=== PATIENT | female | born 1930 | race Caucasian/White ===

== ENCOUNTER 2016-10-13 14:10 | Emergency (ER) | payer OTHER ==
[~2016-10-13] VITALS: Ht 160 cm; Wt 54.5 kg
[2016-10-13 14:39] VITALS: Ht 160 cm; Wt 54.5 kg
--- NOTE | 2016-10-13 14:57 | ERD ---
ER Documentation Chief Complaint Date/Time DATE: 10/13/16 TIME: 14:55 Chief Complaint HPI Patient is an 86-year-old female who was noted by her daughter to have white spots in the back of her throat last night. She spoke to her doctor and was advised to give her penicillin. She states that the senior living give the patient nystatin which she vomited, but would not give her penicillin. Patient was later found to be febrile and having chills. She has had mild cough. She had a right knee replacement 1 week ago. She has had a Robertson catheter in for 2 days. She has not had diarrhea, shortness of breath. History is limited from the patient due to severe dementia. ROS All systems reviewed and are negative except as per history of present illness. Medications Home Meds Active Scripts Polyethylene Glycol* (Miralax*) 17 Gm Powd.pack, 17 GM PO DAILY, #3 Prov:CATHIE CAICEDO MD 10/13/16 Azithromycin* (Zithromax*) 250 Mg Tablet, 250 MG PO .AlciraPACK DIRECTED, #6 TAB TAKE 500 MG (2 TABS) THE FIRST DAY THEN 250 MG (1 TAB) DAYS 2-5 Prov:CATHIE CAICEDO MD 10/13/16 Reported Medications Ascorbic Acid* (Vitamin C*) 500 Mg Capsule.sa, 500 MG PO DAILY, CAP 10/13/16 Tramadol HCl (Tramadol HCl) 50 Mg Tablet, 50 MG PO Q6H Y for PAIN 4-10/10, #120 TAB 10/13/16 Acetaminophen* (Tylenol*) 325 Mg Tablet, 650 MG PO Q6H Y for MILD PAIN LEVEL 1-3 , TAB FOR FEVER>101 10/13/16 Tuberculin,Purif.prot.deriv. (Tubersol) 5 Tub Unit/0.1 Ml Vial, 5 TUB ID QHS, VIAL INJECT 0.1ML AT QHS FOR TB SCREENING FOR 1 DAY 2ND STEP PPD 10/13/16 Sennosides* (Senna Lax*) 8.6 Mg Tablet, 2 TAB PO QHS Y for CONSTIPATION, TAB 10/13/16 Risperidone* (Risperdal*) 0.5 Mg Tablet, 0.5 MG PO Q12H, TAB 10/13/16 Protein Supplement (Promod) 946 Ml Liquid, 30 ML PO TID 10/13/16 Nystatin (Nystatin) 100,000 Unit/1 Ml Oral.susp, 5 ML PO TID, #60 ML START DATE 10/13/16,END DATE 10/20/16 10/13/16 Multivitamin with Minerals (Multivitamins with Minerals) 1 Each Tablet, 1 EACH PO DAILY, TAB 10/13/16 Polyethylene Glycol* (Miralax*) 17 Gm Powd.pack, 17 GM PO BID, #60 PACKET 10/13/16 Levofloxacin* (Levofloxacin*) 250 Mg Tablet, 250 MG PO DAILY for 7 Days, #7 TAB START DATE 10/08/16, END DATE 10/15/16 10/13/16 Levothyroxine Sodium* (Levothyroxine Sodium*) 75 Mcg Tablet, 75 MCG PO BEFORE BREAKFAST, #30 TAB 10/13/16 Lactulose* (Lactulose*) 20 Gm/30 Ml Solution, 20 GM PO Q48H, ML 10/13/16 Sod Phosphate/Sod Biphosphate* (Fleet* Enema Pediatric) 66.6 Ml Soln, 66.6 ML MD Q72H Y for CONSTIPATION, ENEMA 10/13/16 Ferrous Sulfate* (Ferrous Sulfate*) 325 Mg Tabec, 325 MG PO DAILY, TAB 10/13/16 Bisacodyl* (Bisacodyl*) 10 Mg Supp, 10 MG MD Q48H, SUPP 10/13/16 Clotrimazole* (Clotrimazole* AF) 1% - 30 Gm Cream.gm., 1 APPLIC TOP Q24H, TUB 10/13/16 Bethanechol Chloride* (Bethanechol Chloride*) 10 Mg Tablet, 10 MG PO Q2H, TAB 10/13/16 Betamethasone Dipropionate* (Betamethasone Dipropionate*) 0.05% - 15 Gm Oint, 1 APPLIC TOP Q24H, TUB APPLY TO: 10/13/16 Aspirin (Aspirin) 325 Mg Tablet.dr, 325 MG PO BID 10/13/16 Tolnaftate (ANTIFUNGAL) 150.2 Gm [place], 150.2 GM TP DAILY, SPRAY 10/13/16 Allergies Allergies: Coded Allergies: Latex, Natural Rubber (Unverified Allergy, Unknown, 10/13/16) Sulfa (Sulfonamide Antibiotics) (Verified Allergy, Unknown, 10/13/16) thimerosal (Unverified Allergy, Unknown, 10/13/16) PMhx/Soc Past medical history: Dementia Past surgical history: Right knee replacement Social history: Lives in senior living FmHx Family History: No coronary disease, No diabetes Physical Exam Vitals Vital Signs Date Time Temp Pulse Resp B/P Pulse Ox O2 Delivery O2 Flow Rate FiO2 10/13/16 17:12 101.0 95 20 113/70 91 Room Air 10/13/16 15:33 102.0 107 24 141/57 90 Room Air 10/13/16 14:39 102.0 110 17 151/81 92 Physical Exam Const: Alert, no acute distress Head: Atraumatic Eyes: Normal Conjunctiva, no pallor, no icterus ENT: Normal External Ears, Nose and Mouth. Tonsillar exudates Neck: Full range of motion..~ No meningismus. No adenopathy Resp: Clear to auscultation bilaterally, no wheezes, no rales Cardio: Regular rate and rhythm, no murmurs Abd: Soft, non tender, non distended. Skin: No petechiae or rashes Back: No midline or flank tenderness Ext: No cyanosis, or edema. Right knee with incision that is clean dry and intact. No joint effusion or warmth. Neur: Awake and alert, not cooperative, moves 4 extremities spontaneously. Psych: Normal Mood and Affect, slightly agitated Result Diagram: 10/13/16 1515 10/13/16 1525 Results 24 hrs Laboratory Tests Test 10/13/16 15:15 10/13/16 15:25 10/13/16 16:50 White Blood Count 16.410^3/ul Red Blood Count 3.4110^6/ul Hemoglobin 11.0g/dl Hematocrit 31.9% Mean Corpuscular Volume 93.5fl Mean Corpuscular Hemoglobin 32.3pg Mean Corpuscular Hemoglobin Concent 34.5g/dl Red Cell Distribution Width 13.7% Platelet Count 52282^3/UL Mean Platelet Volume 9.1fl Neutrophils % 86.5% Lymphocytes % 5.3% Monocytes % 6.8% Eosinophils % 0.2% Basophils % 0.4% Nucleated Red Blood Cells % 0.0/100WBC Neutrophils # 14.210^3/ul Lymphocytes # 0.910^3/ul Monocytes # 1.110^3/ul Eosinophils # 0.010^3/ul Basophils # 0.110^3/ul Nucleated Red Blood Cells # 0.010^3/ul Prothrombin Time 13.2Sec Prothrombin Time Ratio 1.0 INR International Normalized Ratio 1.00 Activated Partial Thromboplast Time 29.7Sec Lactic Acid Level 2.0mmol/L Sodium Level 138mmol/L Potassium Level 3.9mmol/L Chloride Level 100mmol/L Carbon Dioxide Level 23mmol/L Anion Gap 19 Blood Urea Nitrogen 15mg/dl Creatinine 0.72mg/dl Glucose Level 142mg/dl Calcium Level 8.8mg/dl Total Bilirubin 1.0mg/dl Direct Bilirubin 0.00mg/dl Indirect Bilirubin 1.0mg/dl Aspartate Amino Transf (AST/SGOT) 54IU/L Alanine Aminotransferase (ALT/SGPT) 62IU/L Alkaline Phosphatase 169IU/L Total Protein 7.3g/dl Albumin 3.8g/dl Globulin 3.50g/dl Albumin/Globulin Ratio 1.08 Urine Color YELLOW Urine Clarity CLEAR Urine pH 6.0 Urine Specific [place] 1.024 Urine Ketones NEGATIVEmg/dL Urine Nitrite NEGATIVEmg/dL Urine Bilirubin NEGATIVEmg/dL Urine Urobilinogen NEGATIVEmg/dL Urine Leukocyte Esterase TRACELeu/ul Urine Microscopic RBC > 182/HPF Urine Microscopic WBC 15/HPF Urine Bacteria FEW/HPF Urine Mucus FEW/HPF Urine Hemoglobin 3+mg/dL Urine Glucose NEGATIVEmg/dL Urine Total Protein NEGATIVEmg/dl Current Medications Medications (Trade) Dose Ordered Sig/Ilene Route PRN Reason Start Time Stop Time Status Last Admin Dose Admin Acetaminophen 100 ml @ 400 mls/hr ONCE ONCE IVPB 10/13/16 15:00 10/13/16 15:14 DC 10/13/16 16:23 Ceftriaxone Sodium (Rocephin) 50 ml @ 100 mls/hr ONCE ONCE IVPB 10/13/16 15:00 10/13/16 15:29 DC 10/13/16 16:42 Procedures/MDM Patient is an 86-year-old female who presents with exudates in the throat and 1 day of fever. Her daughter reports that she has had poor oral intake for last few days. She has temperature of 102 in the ER. Septic workup was initiated, blood cultures and urine cultures were sent. The patient was given empiric antibiotics and IV fluids. Her lactic acid was not elevated, she had no significant tachycardia and no hypotension. Chest x-ray and urinalysis were unremarkable. The patient was noted to have mild desaturations while sleeping, but her O2 sat was 94-95% on room air when awake. Her chest x-ray was unremarkable. Limited examination of her oropharynx was obtained due to patient having underlying dementia and not cooperating with exam, but the daughter described clearly the patient having exudate. There is no evidence of airway obstruction. I have high suspicion for strep pharyngitis. I will discharge the patient with a course of azithromycin. The daughter also expressed concern that the patient has not had a bowel movement in 6 days. She has a benign abdominal exam and no symptoms to suggest obstruction. I will discharge her with a prescription for MiraLAX, have advised the daughter to speak with the patient's primary care physician in the next 1-2 days. Departure Diagnosis: Primary Impression: Strep pharyngitis Additional Impression: Constipation Constipation type: unspecified constipation type Qualified Code: K59.00 - Constipation, unspecified constipation type Condition: CATHIE Schrader MD Oct 13, 2016 14:57
[2016-10-13] MEDS ORDERED: ACETAMINOPHEN 1000MG/100ML IV 100 ML IVPB ONE (15:00)
[2016-10-13] MEDS ORDERED: CEFTRIAXONE 1 GM/50 ML (PMX) 50 ML IVPB ONE (15:00)
[2016-10-13 15:38] LABS: BASOPHIL # 0.1 10^3/ul (0.0-0.1); BASOPHILS % 0.4 % (0.0-2.0); EOSINOPHILS % 0.2 % (0.0-7.0); HEMATOCRIT 31.9 % (37.0-47.0); LYMPHOCYTES # 0.9 10^3/ul (0.8-2.9); LYMPHOCYTES % 5.3 % (15.0-51.0); MEAN CORPUSCULAR HEMOGLOBIN 32.3 pg (29.0-33.0); MEAN CORPUSCULAR HGB CONC 34.5 g/dl (32.0-37.0); MEAN CORPUSCULAR VOLUME 93.5 fl (82.0-101.0); MEAN PLATELET VOLUME 9.1 fl (7.4-10.4); MONOCYTE # 1.1 10^3/ul (0.3-0.9); MONOCYTES % 6.8 % (0.0-11.0); NEUTROPHIL # 14.2 10^3/ul (1.6-7.5); NEUTROPHILS % 86.5 % (39.0-77.0); PLATELET COUNT 512 10^3/UL (140-415); RED BLOOD COUNT 3.41 10^6/ul (4.20-5.40); RED CELL DISTRIBUTION WIDTH 13.7 % (11.5-14.5); WHITE BLOOD COUNT 16.4 10^3/ul (4.8-10.8)
--- NOTE | 2016-10-13 15:49 | RADRPT ---
PROCEDURE: Chest radiograph. CLINICAL INDICATION: Possible sepsis. TECHNIQUE: Single portable frontal view. COMPARISON: None relevant listed. FINDINGS: The lungs are clear. No pleural effusion or focal parenchymal opacity. The heart is not enlarged. Aortic atherosclerosis. No suspicious bone lesion. Moderate posterior torus of the right acromioclavicular joint. IMPRESSION: No acute cardiopulmonary abnormality. RPTAT: PP Gunjan Shaw Physician Date Time Electronically viewed and signed by Gunjan Shaw Physician on 10/13/2016 15:49 LG/
[2016-10-13] MEDS ORDERED: [UNRECOGNIZED DRUG - CODE] TP (15:53)
[2016-10-13] MEDS ORDERED: ASPI325T32 PO (15:54)
[2016-10-13] MEDS ORDERED: BTM.05O15 TOP (15:55)
[2016-10-13] MEDS ORDERED: BETH10TA16 PO (15:56)
[2016-10-13 15:58] LABS: PROTIME 13.2 Sec (12.2-14.2)
[2016-10-13] MEDS ORDERED: CLOT30CR24 TOP (15:58)
[2016-10-13] MEDS ORDERED: BISA10SU75 PR (15:58)
[2016-10-13 15:59] LABS: PARTIAL THROMBOPLASTIN TIME 29.7 Sec (25.0-35.0)
[2016-10-13 15:59] LABS: ALBUMIN 3.8 g/dl (3.3-4.9); ALBUMIN/GLOBULIN RATIO 1.08; CALCIUM 8.8 mg/dl (8.4-10.2); CREATININE 0.72 mg/dl (0.44-1.00); POTASSIUM 3.9 mmol/L (3.5-5.1); TOTAL PROTEIN 7.3 g/dl (6.1-8.1)
[2016-10-13] MEDS ORDERED: FLEETPED PR (15:59)
[2016-10-13] MEDS ORDERED: FER325 PO (15:59)
[2016-10-13] MEDS ORDERED: LACT20SO2 PO (16:00)
[2016-10-13] MEDS ORDERED: LEVO75TA5 PO (16:01)
[2016-10-13] MEDS ORDERED: LEVO250T9 PO (16:03)
[2016-10-13] MEDS ORDERED: POLY17PO6 PO ×2 (16:04→18:20)
[2016-10-13] MEDS ORDERED: MULT-105 PO (16:05)
[2016-10-13] MEDS ORDERED: NYST1000 PO (16:09)
[2016-10-13] MEDS ORDERED: PROT946L PO (16:11)
[2016-10-13] MEDS ORDERED: RISP0.5T21 PO (16:12)
[2016-10-13] MEDS ORDERED: SENN-53 PO (16:13)
[2016-10-13] MEDS ORDERED: TUBE5VIA3 ID (16:14)
[2016-10-13] MEDS ORDERED: ACET325T33 PO (16:16)
[2016-10-13] MEDS ORDERED: TRAM50TA2 PO (16:17)
[2016-10-13] MEDS ORDERED: ASCO500C7 PO (16:17)
[2016-10-13 17:12] VITALS: TEMP 101
[2016-10-13 18:04] LABS: ADD UMIC YES; UR ASCORBIC ACID NEGATIVE (NEGATIVE); UR BACTERIA FEW /HPF (NONE SEEN); UR BILIRUBIN (Dip) NEGATIVE (NEGATIVE); UR BLOOD (Dip) 3+ mg/dL (NEGATIVE); UR CLARITY CLEAR (CLEAR); UR COLOR YELLOW (YELLOW); UR GLUCOSE (Dip) NEGATIVE (NEGATIVE); UR KETONES (Dip) NEGATIVE (NEGATIVE); UR LEUKOCYTE ESTERASE (Dip) TRACE Leu/ul (NEGATIVE); UR MUCUS FEW /HPF (NONE SEEN); UR NITRITE (Dip) NEGATIVE (NEGATIVE); UR RBC > 182 /HPF (0-5); UR SPECIFIC GRAVITY (Dip) 1.024 (1.003-1.030); UR TOTAL PROTEIN (Dip) NEGATIVE (NEGATIVE); UR UROBILINOGEN (Dip) NEGATIVE (NEGATIVE)
[2016-10-13] MEDS ORDERED: AZIT250T94 PO (18:07)
[2016-10-13 19:30] VITALS: BP 107/44; PULSE 70; RESP 20
== END 2016-10-13 19:38 | disposition home or self-care (01) ==
LOC: E/R 14:10
DX: J02.0 Streptococcal pharyngitis (principal); K59.00 Constipation, unspecified; R40.2142 Coma scale, eyes open, spontaneous, at arrival to emergency department; R40.2222 Coma scale, best verbal response, incomprehensible words, at arrival to emergency department; R40.2342 Coma scale, best motor response, flexion withdrawal, at arrival to emergency department; R07.9 Chest pain, unspecified; Z96.651 Presence of right artificial knee joint; Z91.040 Latex allergy status; Z79.82 Long term (current) use of aspirin
CPT/HCPCS: 71010; 80053; 81001; 83605; 85025; 85610; 85730; 87040; 87086; 96365; 99284; J0131; J0696

== ENCOUNTER 2016-10-17 20:04 | Inpatient (IN) | payer OTHER ==
[~2016-10-17] VITALS: Ht 157.5 cm; Wt 62.0 kg
[~2016-10-17 20:04] MED LIST: ACET325T33 PO; ASCO500C7 PO; ASPI325T32 PO; AZIT250T94 PO; BETH10TA16 PO; BISA10SU75 PR; BTM.05O15 TOP; CLOT30CR24 TOP; ETOMIDATE 20 MG INJ ONE; FER325 PO; FLEETPED PR; LACT20SO2 PO; LEVO250T9 PO; LEVO75TA5 PO; MULT-105 PO; NYST1000 PO; POLY17PO6 PO; PROT946L PO; RISP0.5T21 PO; ROCURONIUM 50 MG INJ ONE; SENN-53 PO; TRAM50TA2 PO; TUBE5VIA3 ID; [UNRECOGNIZED DRUG - CODE] TP
[2016-10-17] MEDS ORDERED: IPRATROPIUM (NEB) 0.5 MG/2.5 ML AMP NEB STA ×2 (20:21→22:34)
[2016-10-17] MEDS ORDERED: SODIUM CHLORIDE 0.9% 1L BAG IV* STA (20:21)
[2016-10-17] MEDS ORDERED: ALBUTEROL 0.083% (NEB) 2.5 MG/3 ML AMP NEB STA ×2 (20:21→22:34)
[2016-10-17] MEDS ORDERED: METHYLPREDNISOLONE 125 MG INJ IV STA (20:21)
[2016-10-17 21:03] LABS: ADD UMIC YES; UR ASCORBIC ACID 40 mg/dL (NEGATIVE); UR BILIRUBIN (Dip) NEGATIVE (NEGATIVE); UR BLOOD (Dip) 2+ mg/dL (NEGATIVE); UR CLARITY SLIGHTLY CLOUDY (CLEAR); UR COLOR AMBER (YELLOW); UR GLUCOSE (Dip) NEGATIVE (NEGATIVE); UR KETONES (Dip) TRACE mg/dL (NEGATIVE); UR LEUKOCYTE ESTERASE (Dip) TRACE Leu/ul (NEGATIVE); UR MUCUS MANY /HPF (NONE SEEN); UR NITRITE (Dip) NEGATIVE (NEGATIVE); UR RBC 168 /HPF (0-5); UR SPECIFIC GRAVITY (Dip) 1.023 (1.003-1.030); UR TOTAL PROTEIN (Dip) 1+ mg/dl (NEGATIVE); UR UROBILINOGEN (Dip) 2+ mg/dL (NEGATIVE)
[2016-10-17] MEDS ORDERED: IPRA3AMP INHALATION (21:05)
--- NOTE | 2016-10-17 21:06 | RADRPT ---
PROCEDURE: Portable chest x-ray. CLINICAL INDICATION: 86-year-old male. Possible sepsis.. TECHNIQUE: Portable AP view of the chest. COMPARISON: October 13, 2016 FINDINGS: Atherosclerotic calcification thoracic aorta. Cardiomediastinal contours are otherwise normal and s table. There is new patchy consolidation in the left lower lobe with left bronchial wall thickening concerning for aspiration or pneumonia in this clinical setting. Negative for pleural effusion or pneumothorax. No acute bony abnormality. IMPRESSION: 1. New patchy consolidation in the left lower lung zone is concerning for infection or aspiration. RPTAT: HCTS Physician Yonny Date Time Electronically viewed and signed by Physician Yonny on 10/17/2016 21:06 CS/
[2016-10-17 21:23] LABS: BASOPHILS % 0.3 % (0.0-2.0); EOSINOPHILS # 0.1 10^3/ul (0.0-0.5); EOSINOPHILS % 0.9 % (0.0-7.0); HEMOGLOBIN 10.3 g/dl (12.0-16.0); LYMPHOCYTES # 2.7 10^3/ul (0.8-2.9); LYMPHOCYTES % 17.2 % (15.0-51.0); MEAN CORPUSCULAR HEMOGLOBIN 32.4 pg (29.0-33.0); MEAN CORPUSCULAR HGB CONC 34.3 g/dl (32.0-37.0); MEAN CORPUSCULAR VOLUME 94.3 fl (82.0-101.0); MONOCYTE # 1.3 10^3/ul (0.3-0.9); MONOCYTES % 8.5 % (0.0-11.0); NEUTROPHIL # 11.2 10^3/ul (1.6-7.5); NEUTROPHILS % 72.3 % (39.0-77.0); PLATELET COUNT 504 10^3/UL (140-415); RED BLOOD COUNT 3.18 10^6/ul (4.20-5.40); RED CELL DISTRIBUTION WIDTH 13.6 % (11.5-14.5); WHITE BLOOD COUNT 15.6 10^3/ul (4.8-10.8)
--- NOTE | 2016-10-17 21:23 | RADRPT ---
PROCEDURE: CT Brain without contrast. CLINICAL INDICATION: Altered mental status. TECHNIQUE: A CT of the brain without contrast was performed utilizing axial sections from the skul l base through the vertex. The patient was scanned without intravenous contrast enhancement. [place] l and coronal reformatted images were obtained using the data from the axial images. Total exam DLP is 823.67 mGy-cm. CTDIvol is 43.11 mGy. One or more of the following dose reduction techniques were used: Automated exposure control, adjustment of the mA and/or kV according to patient size, use of iterative reconstruction technique. COMPARISON: None available. FINDINGS: There is normal munoz-white matter differentiation. There is enlargement of the ventricles and subarachnoid spaces consistent with atrophy. There is decreased attenuation of the periventricular white matter consistent with microangiopathic ischemic change. There is no intracranial hemorrhage or space-occupying lesion. There are vascular calcifications consistent with atherosclerosis. There is no skull fracture or lytic lesion. IMPRESSION: 1. Atrophy. 2. Microangiopathic ischemic change. 3. Atherosclerosis. 4. No intracranial hemorrhage. 5. Otherwise unremarkable noncontrast CT scan of the brain. RPTAT: QQ .Cooper George MD, Date Time Electronically viewed and signed by .Cooper George MD, on 10/17/2016 21:23 .R/
[2016-10-17 21:42] LABS: INR 1.01; PROTIME 13.3 Sec (12.2-14.2)
[2016-10-17 21:43] LABS: PARTIAL THROMBOPLASTIN TIME 38.8 Sec (25.0-35.0)
[2016-10-17 21:49] LABS: ALANINE AMINOTRANSFERASE 40 IU/L (13-69); ALBUMIN 3.3 g/dl (3.3-4.9); ALKALINE PHOSPHATASE 138 IU/L (42-121); AMYLASE 57 U/L (11-123); ANION GAP 19 (8-16); ASPARTATE AMINO TRANSFERASE 30 IU/L (15-46); BILIRUBIN,INDIRECT 0.6 mg/dl (0-1.1); BILIRUBIN,TOTAL 0.6 mg/dl (0.2-1.3); BLOOD UREA NITROGEN 24 mg/dl (7-20); CALCIUM 8.2 mg/dl (8.4-10.2); CARBON DIOXIDE 25 mmol/L (21-31); CHLORIDE 102 mmol/L (97-110); CREATININE 0.84 mg/dl (0.44-1.00); GLUCOSE 129 mg/dl (70-220); POTASSIUM 3.4 mmol/L (3.5-5.1); SODIUM 143 mmol/L (135-144); TOTAL PROTEIN 6.6 g/dl (6.1-8.1)
[2016-10-17] MEDS ORDERED: CEFTRIAXONE 1 GM/50 ML (PMX) 50 ML IVPB ONE (22:00)
[2016-10-17 22:01] LABS: TROPONIN-I < 0.012 ng/ml (0.00-0.12)
[2016-10-17] MEDS ORDERED: ACETAMINOPHEN 325 MG TAB PO PRN (23:00)
[2016-10-17] MEDS ORDERED: ACETAMINOPHEN 650 MG SUPP PR ONE (23:00)
[2016-10-17] MEDS ORDERED: VANCOMYCIN 1 GM (PMX) 250 ML IVPB SCH (23:00)
[2016-10-17] MEDS ORDERED: ONDANSETRON 4 MG INJ IV PRN (23:00)
[2016-10-17 23:30] VITALS: TEMP 98.8
--- NOTE | 2016-10-17 23:35 | ERA ---
ER Documentation Chief Complaint Date/Time DATE: 10/17/16 TIME: 23:27 Chief Complaint HPI This is an 86-year-old female with a known history of dementia at baseline alert to person but not to place or time. Patient currently is residing in [facility] rehab facility as she is recovering from a right total knee replacement that was elective and performed on October 04, 2016. According to EMS the patient appeared more confused over the past 12 hours. She also had some difficulty in breathing. When EMS arrived the patient was 83% on room air. They administered a nonrebreather and the patient's pulse ox improved to 95%. She was also hypotensive upon arrival with a blood pressure 73/33. They establish IV access and give a fluid challenge at 200 cc. They have not been able to obtain a further blood pressure. The patient had been seen and evaluated at [facility] on October 13, 2016, 4 days prior to arrival. At that time the patient had a urinary tract infection and suspected pharyngitis. The patient had a urine culture that was obtained and followed up by the physician mechanic assistant that showed no growth. The patient however has continued to have foul-smelling urine according to the daughter as the patient has a Robertson catheter in place. The patient has remained afebrile since her discharge and no antipyretics were given prior to arrival. She did have a fever of 102 on October 13 and had received a dose of IV ceftriaxone in the emergency department prior to returning to [facility] on October 13, 2016. ROS All systems reviewed and are negative except as per history of present illness. Medications Home Meds Active Scripts Azithromycin* (Zithromax*) 250 Mg Tablet, 250 MG PO .MARIANOCK DIRECTED, #6 TAB TAKE 500 MG (2 TABS) THE FIRST DAY THEN 250 MG (1 TAB) DAYS 2-5 Prov:CATHIE CAICEDO MD 10/13/16 Reported Medications Ipratropium-Albuterol (Ipratropium-Albuterol) 0.5-3 Mg/3 Ml Ampul.neb, 3 ML INHALATION Q6 Y for SHORTNESS OF BREATH, #30 VIAL 10/17/16 Ascorbic Acid* (Vitamin C*) 500 Mg Capsule.sa, 500 MG PO DAILY, CAP 10/13/16 Tramadol HCl (Tramadol HCl) 50 Mg Tablet, 50 MG PO Q6H Y for PAIN 4-10/10, #120 TAB 10/13/16 Acetaminophen* (Tylenol*) 325 Mg Tablet, 650 MG PO Q6H Y for MILD PAIN LEVEL 1-3 , TAB FOR FEVER>101 10/13/16 Tuberculin,Purif.prot.deriv. (Tubersol) 5 Tub Unit/0.1 Ml Vial, 5 TUB ID QHS, VIAL INJECT 0.1ML AT QHS FOR TB SCREENING FOR 1 DAY 2ND STEP PPD.END DATE 10/18/16 10/13/16 Sennosides* (Senna Lax*) 8.6 Mg Tablet, 2 TAB PO QHS Y for CONSTIPATION, TAB 10/13/16 Risperidone* (Risperdal*) 0.5 Mg Tablet, 0.5 MG PO Q12H, TAB 10/13/16 Protein Supplement (Promod) 946 Ml Liquid, 30 ML PO TID 10/13/16 Nystatin (Nystatin) 100,000 Unit/1 Ml Oral.susp, 5 ML PO TID, #60 ML START DATE 10/13/16,END DATE 10/20/16 10/13/16 Multivitamin with Minerals (Multivitamins with Minerals) 1 Each Tablet, 1 EACH PO DAILY, TAB 10/13/16 Polyethylene Glycol* (Miralax*) 17 Gm Powd.pack, 17 GM PO BID, #60 PACKET 10/13/16 Levothyroxine Sodium* (Levothyroxine Sodium*) 75 Mcg Tablet, 75 MCG PO BEFORE BREAKFAST, #30 TAB 10/13/16 Lactulose* (Lactulose*) 20 Gm/30 Ml Solution, 20 GM PO Q48H, ML 10/13/16 Sod Phosphate/Sod Biphosphate* (Fleet* Enema Pediatric) 66.6 Ml Soln, 66.6 ML FL Q72H Y for CONSTIPATION, ENEMA 10/13/16 Ferrous Sulfate* (Ferrous Sulfate*) 325 Mg Tabec, 325 MG PO DAILY, TAB END DATE 11/10/16 10/13/16 Bisacodyl* (Bisacodyl*) 10 Mg Supp, 10 MG FL Q48H, SUPP 10/13/16 Clotrimazole* (Clotrimazole* AF) 1% - 30 Gm Cream.gm., 1 APPLIC TOP Q24H, TUB 10/13/16 Bethanechol Chloride* (Bethanechol Chloride*) 10 Mg Tablet, 10 MG PO Q2H, TAB 10/13/16 Betamethasone Dipropionate* (Betamethasone Dipropionate*) 0.05% - 15 Gm Oint, 1 APPLIC TOP Q24H, TUB APPLY TO: 10/13/16 Aspirin (Aspirin) 325 Mg Tablet.dr, 325 MG PO BID 10/13/16 Tolnaftate (ANTIFUNGAL) 150.2 Gm [place], 150.2 GM TP DAILY, SPRAY 10/13/16 Discontinued Reported Medications Levofloxacin* (Levofloxacin*) 250 Mg Tablet, 250 MG PO DAILY for 7 Days, #7 TAB START DATE 10/08/16, END DATE 10/15/16 10/13/16 Discontinued Scripts Polyethylene Glycol* (Miralax*) 17 Gm Powd.pack, 17 GM PO DAILY, #3 Prov:CATHIE CAICEDO MD 10/13/16 Allergies Allergies: Coded Allergies: Latex, Natural Rubber (Unverified Allergy, Unknown, 10/17/16) Sulfa (Sulfonamide Antibiotics) (Verified Allergy, Unknown, 10/17/16) morphine (Unverified Allergy, Unknown, 10/17/16) thimerosal (Unverified Allergy, Unknown, 10/17/16) PMhx/Soc History of Surgery: Yes ([place] Knee Replaced,Lumbar Fusion,R Hip Replaced) Anesthesia Reaction: Yes (Agitation as per daughter) Hx Neurological Disorder: No Hx Respiratory Disorders: Yes (COPD) Hx Cardiac Disorders: No Hx Psychiatric Problems: Yes (Dementia) Hx Miscellaneous Medical Probl: Yes (Dysphagia,Decubitus Ulcers) Hx Alcohol Use: No Hx Substance Use: No Hx Tobacco Use: No Smoking Status: Unknown if ever smoked Physical Exam Vitals Vital Signs Date Time Temp Pulse Resp B/P Pulse Ox O2 Delivery O2 Flow Rate FiO2 10/17/16 23:15 100 20 152/71 98 Non Rebreather 10/17/16 22:51 96 22 98 Simple Mask 10.0 10/17/16 22:30 Non Rebreather 10.0 10/17/16 22:30 101.8 89 20 114/55 100 10.0 10/17/16 20:55 Non Rebreather 10 10/17/16 20:46 15.0 100 10/17/16 20:45 94 22 98 Non Rebreather Mask 15.0 100 10/17/16 20:16 99.5 97 20 146/86 90 Physical Exam Constitutional:Well-developed. Well-nourished. HEENT:Normocephalic. Atraumatic.Pupils were equal round reactive to light. Dry mucous membranes.No tonsillar exudates. Neck: No nuchal rigidity. No lymphadenopathy. No posterior cervical spine tenderness or step-offs. Respiratory: Not using accessory muscles of respiration.. Decreased breath sounds in the left lower lung, no rhonchi. No rales. No wheezing. Cardiovascular: Regular rate regular rhythm.No murmurs. No rubs were appreciated.S1, S2 normal. Distal pulses are palpable 2+ bilaterally. GI: Abdomen was soft. Nontender. Non Distended. No pulsatile abdominal masses or bruits. No rebound. No guarding. Bowel sounds were present and normal. Muscle skeletal: Full range of motion of both the upper extremities bilaterally.Normal muscle tone.No assymetrical calf tenderness or swelling. Surgical incision site of the right knee was clean dry and intact and patient full range of motion of the left lower extremity. Skin: No petechia, no purpura. No lesions on the palms or the soles of the feet. No maculopapular rash. NEURO: Patient was alert to person but not to place or time. Patient was following simple verbal command. Speech was not slurred. No facial droop. Gait not observed as patient cannot ambulate at this time peer Result Diagram: 10/17/16 2100 10/17/16 2100 Results 24 hrs Laboratory Tests Test 10/17/16 20:30 10/17/16 21:00 Urine Color DENISE Urine Clarity SLIGHTLY CLOUDY Urine pH 6.0 Urine Specific [place] 1.023 Urine Ketones TRACEmg/dL Urine Nitrite NEGATIVEmg/dL Urine Bilirubin NEGATIVEmg/dL Urine Urobilinogen 2+mg/dL Urine Leukocyte Esterase TRACELeu/ul Urine Microscopic RBC 168/HPF Urine Microscopic WBC 18/HPF Urine Calcium Oxalate Crystals FEW/HPF Urine Mucus MANY/HPF Urine Hemoglobin 2+mg/dL Urine Glucose NEGATIVEmg/dL Urine Total Protein 1+mg/dl White Blood Count 15.610^3/ul Red Blood Count 3.1810^6/ul Hemoglobin 10.3g/dl Hematocrit 30.0% Mean Corpuscular Volume 94.3fl Mean Corpuscular Hemoglobin 32.4pg Mean Corpuscular Hemoglobin Concent 34.3g/dl Red Cell Distribution Width 13.6% Platelet Count 73449^3/UL Mean Platelet Volume 9.0fl Neutrophils % 72.3% Lymphocytes % 17.2% Monocytes % 8.5% Eosinophils % 0.9% Basophils % 0.3% Nucleated Red Blood Cells % 0.0/100WBC Neutrophils # 11.210^3/ul Lymphocytes # 2.710^3/ul Monocytes # 1.310^3/ul Eosinophils # 0.110^3/ul Basophils # 0.010^3/ul Nucleated Red Blood Cells # 0.010^3/ul Prothrombin Time 13.3Sec Prothrombin Time Ratio 1.0 INR International Normalized Ratio 1.01 Activated Partial Thromboplast Time 38.8Sec Sodium Level 143mmol/L Potassium Level 3.4mmol/L Chloride Level 102mmol/L Carbon Dioxide Level 25mmol/L Anion Gap 19 Blood Urea Nitrogen 24mg/dl Creatinine 0.84mg/dl Glucose Level 129mg/dl Lactic Acid Level 1.5mmol/L Calcium Level 8.2mg/dl Total Bilirubin 0.6mg/dl Direct Bilirubin 0.00mg/dl Indirect Bilirubin 0.6mg/dl Aspartate Amino Transf (AST/SGOT) 30IU/L Alanine Aminotransferase (ALT/SGPT) 40IU/L Alkaline Phosphatase 138IU/L Troponin I < 0.012ng/ml B-Type Natriuretic Peptide 160PG/ML Total Protein 6.6g/dl Albumin 3.3g/dl Globulin 3.30g/dl Albumin/Globulin Ratio 1.00 Amylase Level 57U/L Lipase 13U/L Current Medications Medications (Trade) Dose Ordered Sig/Ilene Route PRN Reason Start Time Stop Time Status Last Admin Dose Admin Sodium Chloride (NS) 1,830 ml BOLUS OVER 2 HOURS STAT IV* 10/17/16 20:21 10/17/16 20:25 DC 10/17/16 20:49 Albuterol (Proventil 0.083% (Neb)) 5 mg ONCE STAT NEB 10/17/16 20:21 10/17/16 20:26 DC 10/17/16 20:44 Ipratropium [place] (Atrovent 0.02% (Neb)) 0.5 mg ONCE STAT NEB 10/17/16 20:21 10/17/16 20:26 DC 10/17/16 20:44 Methylprednisolone Sodium Succinate 125 mg 125 mg ONCE STAT IV 10/17/16 20:21 10/17/16 20:26 DC 10/17/16 20:52 Ceftriaxone Sodium (Rocephin) 50 ml @ 100 mls/hr ONCE ONCE IVPB 10/17/16 22:00 10/17/16 22:01 DC 10/17/16 22:28 Albuterol (Proventil 0.083% (Neb)) 5 mg ONCE STAT NEB 10/17/16 22:34 10/17/16 22:35 DC 10/17/16 22:50 Ipratropium [place] (Atrovent 0.02% (Neb)) 0.5 mg ONCE STAT NEB 10/17/16 22:34 10/17/16 22:35 DC 10/17/16 22:50 Ondansetron HCl (Zofran Inj) 4 mg ER BRIDGE PRN IV NAUSEA AND/OR VOMITING 10/17/16 23:00 10/18/16 22:59 Acetaminophen (Tylenol Tab) 650 mg ER BRIDGE PRN PO MILD PAIN/FEVER 10/17/16 23:00 10/18/16 22:59 Acetaminophen 650 mg 650 mg ONCE ONCE FL 10/17/16 23:00 10/17/16 23:06 DC Vancomycin HCl (Vancocin) 250 ml @ 125 mls/hr ONCE IVPB 10/17/16 23:00 10/18/16 00:59 Procedures/MDM The patient presented to the emergency department with an acute and persistent change in their mental status. The differential diagnosis is diverse however reversible causes such as hypoglycemia, opiate overdose, thiamine deficiency were immediately considered. The patient was placed on a security monitor, continuous pulse oximetry and IV access was established. The patients airway was secure however hypoxic events such as anemia, shock, or severe pulmonary disease were all considered as etiologies in this patients presentation. Circulation assessed with good cap refill and did not require fluids or pressure support. Finger stick for rapid glucose determined to be normal. IV access was established by nursing staff. The patient received nebulizer treatments of albuterol and Atrovent. The patient remained on 2 L nasal cannula satting at 98%. Chest radiograph ordered reviewed by myself indicated that there appeared to be a left lower lobe infiltrate. Blood cultures and urine cultures were obtained. The patient also had a urinary tract infection. She was started on IV ceftriaxone. She was also given IV vancomycin to broaden her spectrum of antibiotics. Nursing staff retook the patient's temperature and she was now febrile. She received acetaminophen rectally as an antipyretic. 12 Lead EKG tracing ordered and reviewed by myself showed: Normal sinus rhythm of 96 bpm and no arrhythmia. FL interval normal. QRS duration normal. No ST segment elevation No ST segment depression. No changes consistent with acute ischemia. Given the patient was altered I did obtain a CT scan of the patient's head which showed no acute intracerebral hemorrhage mass-effect or midline shift. I did indicate to the daughter who is at bedside that I felt the patient's changes in her mental status could be due to the infection. The patient's blood pressure had significantly improved. Patient's lactic acid was normal and there is no evidence of sepsis at this time. The patient will continue to be admitted for IV antibiotics to treat suspected pneumonia and urinary tract infection. She will be admitted to the hospitalist Dr. Dawson to the telemetry service in serious condition with an anticipated stay of greater than 2 midnights Departure Diagnosis: Primary Impression: Urinary tract infection Qualified Code: N30.00 - Acute cystitis without hematuria Additional Impression: Pneumonia Qualified Code: J18.1 - Pneumonia of left lower lobe due to infectious organism Condition: Serious LAILA FRAZIER Oct 17, 2016 23:35
[2016-10-18] VITALS (20 sets, daily range): BP systolic 126–174; BP diastolic 59–99; PULSE 86–114; RESP 8–20; Ht 157.5 cm; Wt 62.0 kg
[2016-10-18] MEDS ORDERED: LEVOFLOXACIN 750MG/D5W (PMX) 150 ML IVPB SCH
[2016-10-18] MEDS ORDERED: VANCOMYCIN IV PER PHARMACY XX SCH
[2016-10-18] MEDS ORDERED: PENDING SANTYL ORDER FOR WOUND CARE XX PRN (02:00)
[2016-10-18] MEDS: SOD CHLORIDE 0.9% 1,000 ML IV SCH ×3 (03:00→23:48)
[2016-10-18] MEDS: AMPICILLIN/SULB 1.5GM/NS (PMX) 50 ML IVPB SCH ×3 (03:54→12:00)
[2016-10-18] MEDS ORDERED: HALOPERIDOL 5 MG INJ IM ONE (04:00)
--- NOTE | 2016-10-18 07:59 | HP ---
Date/Time of Note Date/Time of Note DATE: 10/18/16 TIME: 07:42 Assessment/Plan VTE Prophylaxis VTE Prophylaxis Intervention: SCD's Lines/Catheters IV [facility]ter [facility]from [facility] Saline Lock Urinary Cath still in place: Yes Reason Cath still needed: other (indicate) (clinical condiiton) Assessment/Plan Chief Complaint/Hosp Course This is a 86-year-old female being admitted to the telemetry floor for: #1 sepsis: Healthcare associated pneumonia versus aspiration pneumonia and urinary tract infection. Patient was recently in a rehab facility. Currently not in respiratory distress. Will treat right now with IV empiric antibiotics with vancomycin, Unasyn, and Levaquin. We will keep the patient n.p.o. We will get a dietary consultation. Provide IV fluid hydration. Tylenol for fevers. #2 Dementia: Patient has baseline dementia and she does appear to be lethargic and confused at this time. Her current mental status likely is probably compounded with underlying infection. We will continue to treat the underlying infection with IV antibiotics as per #1. Monitor mental status. #3 anemia: Normocytic anemia. At the current time we will continue to monitor this no signs of bleeding at this time. #4 hypothyroidism: Continue home medication #5 dysphagia: We will consult dietary for diet recommendations. #6 right knee replacement: At the current time we will monitor this. Will need to discuss with family patient's actual ambulation status and consult PT if necessary #7 DVT and GI prophylaxis: SCDs, Protonix Further treatment strategy will be implemented as per the clinical course Problems: HPI/ROS Admit Date/Time Admit Date/Time Oct 17, 2016 at 22:37 Hx of Present Illness Chief complaint: Confusion This is an 86-year-old female with a known history of dementia at baseline alert to person but not to place or time. History was obtained from the ED physician documentation as patient was lethargic and unable to give me proper history. patient currently is residing in [facility] rehab facility as she is recovering from a right total knee replacement that was elective and performed on October 04, 2016. According to EMS the patient appeared more confused over the past 12 hours. She also had some difficulty in breathing. When EMS arrived the patient was 83% on room air. They administered a nonrebreather and the patient's pulse ox improved to 95%. She was also hypotensive upon arrival with a blood pressure 73/33. They establish IV access and give a fluid challenge at 200 cc. They have not been able to obtain a further blood pressure. The patient had been seen and evaluated at [facility] on October 13, 2016, 4 days prior to arrival. At that time the patient had a urinary tract infection and suspected pharyngitis. The patient had a urine culture that was obtained and followed up by the physician commercial escrow assistant that showed no growth. The patient however has continued to have foul -smelling urine according to the daughter as the patient has a Robertson catheter in place. The patient has remained afebrile since her discharge and no antipyretics were given prior to arrival. Allergies: Latex, natural rubber, sulfa, morphine, thimerosal Medications: See MAR ROS Subjective hx not possible: pt non-verbal, pt critical status PMH/Family/Social Past Medical History Dementia, COPD, dysphagia, hypothyroidism, unable to obtain full history secondary to patient's clinical condition Past Surgical History Right knee replacement,unable to obtain full history secondary to patient's clinical condition Family History Significant Family History: other (unable to obtain full history secondary to patient's clinical condition) Social History unable to obtain full history secondary to patient's clinical condition Smoking Status: Never smoker Exam/Review of Systems Vital Signs Vitals Vital Signs Date Time Temp Pulse Resp B/P Pulse Ox O2 Delivery O2 Flow Rate FiO2 10/18/16 07:15 97.6 104 18 164/75 96 10/18/16 06:00 Mask 10.0 10/17/16 20:46 100 Intake and Output 10/17/16 10/17/16 10/18/16 15:00 23:00 07:00 Intake Total 1880 ml Balance 1880 ml Exam Exam General: This is a 86-year-old female lying in bed, lethargic, turns her head towards her name. HEENT: Atraumatic, normocephalic. The pupils are equal, round and reactive. Extraocular motor are intact Neck: Supple with full range of motion. No rigidity or meningismus Chest: Nontender Lungs: Coarse breath sounds bilaterally, gargling heard at the upper airway Heart: Sinus tachycardia Abdomen: Soft , nontender, nondistended , bowel sounds are present. No guarding no rebound tenderness , No masses or organomegaly. No costovertebral temporal angle mass Extremities: Surgical site of right knee dressing clean dry and intact Neurologic: Patient was alert to person but not to place or time. Patient was following simple verbal command. Speech was not slurred. No facial droop. Gait not observed as patient cannot ambulate at this time. Additional Comments EKG Normal sinus rhythm of 96 bpm and no arrhythmia. NE interval normal. QRS duration normal. No ST segment elevation No ST segment depression. No changes consistent with acute ischemia. PROCEDURE: CT Brain without contrast. CLINICAL INDICATION: Altered mental status. TECHNIQUE: A CT of the brain without contrast was performed utilizing axial sections from the skull base through the vertex. The patient was scanned without intravenous contrast enhancement. Sagittal and coronal reformatted images were obtained using the data from the axial images. Total exam DLP is 823.67 mGy-cm. CTDIvol is 43.11 mGy. One or more of the following dose reduction techniques were used: Automated exposure control, adjustment of the mA and/or kV according to patient size, use of iterative reconstruction technique. COMPARISON: None available. FINDINGS: There is normal munoz-white matter differentiation. There is enlargement of the ventricles and subarachnoid spaces consistent with atrophy. There is decreased attenuation of the periventricular white matter consistent with microangiopathic ischemic change. There is no intracranial hemorrhage or space-occupying lesion. There are vascular calcifications consistent with atherosclerosis. There is no skull fracture or lytic lesion. IMPRESSION: 1. Atrophy. 2. Microangiopathic ischemic change. 3. Atherosclerosis. 4. No intracranial hemorrhage. 5. Otherwise unremarkable noncontrast CT scan of the brain. RPTAT: QQ .Cooper George MD, MD Date Time Electronically viewed and signed by .Cooper George MD, MD on 10/17/2016 21:23 .R/ PROCEDURE: Portable chest x-ray. CLINICAL INDICATION: 86-year-old male. Possible sepsis.. TECHNIQUE: Portable AP view of the chest. COMPARISON: October 13, 2016 FINDINGS: Atherosclerotic calcification thoracic aorta. Cardiomediastinal contours are otherwise normal and stable. There is new patchy consolidation in the left lower lobe with left bronchial wall thickening concerning for aspiration or pneumonia in this clinical setting. Negative for pleural effusion or pneumothorax. No acute bony abnormality. IMPRESSION: 1. New patchy consolidation in the left lower lung zone is concerning for infection or aspiration. RPTAT: HCTS Bin Higuera Physician Date Time Electronically viewed and signed by Bin Higuera Physician on 10/17/2016 21: 06 CS/ Labs Result Diagram: 10/17/16 2100 10/17/16 2100 Medications Medications Current Medications Levofloxacin/ Dextrose 150 ml @ 100 mls/hr Q24H IVPB Last administered on 02:59; Admin Dose 100 MLS/HR; Start 10/18/16 at 00:00 Ampicillin Sodium/ Sulbactam Sodium (Unasyn 1.5gm/NS (Pmx)) 50 ml @ 100 mls/hr Q6 IVPB Last administered on 10/18/16 06:51; Admin Dose 100 MLS/HR; Start at 00:30 Miscellaneous Information This patient loaiza... PRN PRN XX WOUND CARE; Start at 02:00 Sodium Chloride 1,000 ml @ 70 mls/hr [id number] IV Last administered on 10/18/16 03:00; Admin Dose 70 MLS/HR; Start 10/18/16 at 02:30 Potassium Chloride 250 ml @ 62.5 mls/hr Q4H IVPB ; Start 10/18/16 at 02:30; Stop 10/18/16 at 10:29 Vancomycin HCl (Vancocin) 250 ml @ 125 mls/hr Q24H IVPB ; Start 10/19/16 at 01: 00 VALE GONZALEZ Oct 18, 2016 07:52
[2016-10-18 10:57] LABS: BASOPHILS % 0.2 % (0.0-2.0); HEMATOCRIT 30.4 % (37.0-47.0); HEMOGLOBIN 10.3 g/dl (12.0-16.0); LYMPHOCYTES # 1.4 10^3/ul (0.8-2.9); LYMPHOCYTES % 7.5 % (15.0-51.0); MEAN CORPUSCULAR HGB CONC 33.9 g/dl (32.0-37.0); MEAN CORPUSCULAR VOLUME 94.4 fl (82.0-101.0); MEAN PLATELET VOLUME 8.8 fl (7.4-10.4); MONOCYTE # 0.5 10^3/ul (0.3-0.9); MONOCYTES % 2.9 % (0.0-11.0); NEUTROPHIL # 15.9 10^3/ul (1.6-7.5); NEUTROPHILS % 88.1 % (39.0-77.0); PLATELET COUNT 537 10^3/UL (140-415); RED BLOOD COUNT 3.22 10^6/ul (4.20-5.40); RED CELL DISTRIBUTION WIDTH 13.5 % (11.5-14.5); WHITE BLOOD COUNT 18.1 10^3/ul (4.8-10.8)
[2016-10-18] MEDS: hydrALAzine 20 MG INJ IV PRN (11:19)
[2016-10-18 11:21] LABS: ALBUMIN 3.2 g/dl (3.3-4.9); ALBUMIN/GLOBULIN RATIO 0.96; BILIRUBIN,INDIRECT 0.4 mg/dl (0-1.1); BILIRUBIN,TOTAL 0.4 mg/dl (0.2-1.3); CALCIUM 8.8 mg/dl (8.4-10.2); CREATININE 0.63 mg/dl (0.44-1.00); POTASSIUM 3.9 mmol/L (3.5-5.1); TOTAL PROTEIN 6.5 g/dl (6.1-8.1)
--- NOTE | 2016-10-18 12:06 | EN ---
Date/Time of Note Date/Time of Note DATE: 10/18/16 TIME: 12:03 Event Note Medicine Medicine Event Note The patient continues to have significant leukocytosis. Patient is in respiratory distress. The patient is using her accessory muscles of respiration. Patient is unable to clear her airway. The patient has been suctioned frequently as per nursing report. The patient's family was at the bedside. The patient's family wanted the patient to be a full code. The patient's clinical condition is critical and that she may deteriorate at any time. Therefore, the patient will be moved to intensive care unit. Pulmonology consult was obtained and the lag screwer was informed about transfer of the patient to intensive care unit. Stat ABG was ordered. Case discussed with Dr. Pérez. WILLIAM BERUMEN NP Oct 18, 2016 12:05
--- NOTE | 2016-10-18 12:45 | CONS ---
Date/Time of Note Date/Time of Note DATE: 10/18/16 TIME: 12:43 Consultation Date/Type/Reason Admit Date/Time Oct 17, 2016 at 22:37 Date of Consultation: Oct 18, 2016 Type of Consultation: ID Reason for Consultation Antibiotic management Social History Smoking Status: Never smoker Exam/Review of Systems Vital Signs Vitals Vital Signs Date Time Temp Pulse Resp B/P Pulse Ox O2 Delivery O2 Flow Rate FiO2 10/18/16 12:34 114 10/18/16 12:31 98.6 20 144/68 98 10/18/16 08:45 Simple Mask 10.0 10/17/16 20:46 100 Intake and Output 10/17/16 10/17/16 10/18/16 15:00 23:00 07:00 Intake Total 1880 ml Balance 1880 ml Results Result Diagram: 10/18/16 1034 10/18/16 1034 Results 24 hrs Laboratory Tests Test 10/17/16 20:30 10/17/16 21:00 10/17/16 22:22 10/18/16 01:06 Urine Color DENISE Urine Clarity SLIGHTLY CLOUDY A Urine pH 6.0 Urine Specific [place] 1.023 Urine Ketones TRACE A Urine Nitrite NEGATIVE Urine Bilirubin NEGATIVE Urine Urobilinogen 2+ H Urine Leukocyte Esterase TRACE A Urine Microscopic RBC 168 H Urine Microscopic WBC 18 H Urine Calcium Oxalate Crystals FEW A Urine Mucus MANY A Urine Hemoglobin 2+ H Urine Glucose NEGATIVE Urine Total Protein 1+ H White Blood Count 15.6 H Red Blood Count 3.18 L Hemoglobin 10.3 L Hematocrit 30.0 L Mean Corpuscular Volume 94.3 Mean Corpuscular Hemoglobin 32.4 Mean Corpuscular Hemoglobin Concent 34.3 Red Cell Distribution Width 13.6 Platelet Count 504 H Mean Platelet Volume 9.0 Neutrophils % 72.3 Lymphocytes % 17.2 Monocytes % 8.5 Eosinophils % 0.9 Basophils % 0.3 Nucleated Red Blood Cells % 0.0 Neutrophils # 11.2 H Lymphocytes # 2.7 Monocytes # 1.3 H Eosinophils # 0.1 Basophils # 0.0 Nucleated Red Blood Cells # 0.0 Prothrombin Time 13.3 Prothrombin Time Ratio 1.0 INR International Normalized Ratio 1.01 Activated Partial Thromboplast Time 38.8 H Sodium Level 143 Potassium Level 3.4 L Chloride Level 102 Carbon Dioxide Level 25 Anion Gap 19 H Blood Urea Nitrogen 24 H Creatinine 0.84 Glucose Level 129 Lactic Acid Level 1.5 1.4 2.9 *H Calcium Level 8.2 L Total Bilirubin 0.6 Direct Bilirubin 0.00 Indirect Bilirubin 0.6 Aspartate Amino Transf (AST/SGOT) 30 Alanine Aminotransferase (ALT/SGPT) 40 Alkaline Phosphatase 138 H Troponin I < 0.012 B-Type Natriuretic Peptide 160 Total Protein 6.6 Albumin 3.3 Globulin 3.30 H Albumin/Globulin Ratio 1.00 Amylase Level 57 Lipase 13 L Test 10/18/16 10:34 White Blood Count 18.1 H Red Blood Count 3.22 L Hemoglobin 10.3 L Hematocrit 30.4 L Mean Corpuscular Volume 94.4 Mean Corpuscular Hemoglobin 32.0 Mean Corpuscular Hemoglobin Concent 33.9 Red Cell Distribution Width 13.5 Platelet Count 537 H Mean Platelet Volume 8.8 Neutrophils % 88.1 H Lymphocytes % 7.5 L Monocytes % 2.9 Eosinophils % 0.0 Basophils % 0.2 Nucleated Red Blood Cells % 0.0 Neutrophils # 15.9 H Lymphocytes # 1.4 Monocytes # 0.5 Eosinophils # 0.0 Basophils # 0.0 Nucleated Red Blood Cells # 0.0 Sodium Level 145 H Potassium Level 3.9 Chloride Level 104 Carbon Dioxide Level 27 Anion Gap 18 H Blood Urea Nitrogen 19 Creatinine 0.63 Glucose Level 126 Lactic Acid Level 1.4 Calcium Level 8.8 Total Bilirubin 0.4 Direct Bilirubin 0.00 Indirect Bilirubin 0.4 Aspartate Amino Transf (AST/SGOT) 24 Alanine Aminotransferase (ALT/SGPT) 38 Alkaline Phosphatase 142 H Total Protein 6.5 Albumin 3.2 L Globulin 3.30 H Albumin/Globulin Ratio 0.96 Medications Medications Current Medications Levofloxacin/ Dextrose 150 ml @ 100 mls/hr Q24H IVPB Last administered on 02:59; Admin Dose 100 MLS/HR; Start 10/18/16 at 00:00 Ampicillin Sodium/ Sulbactam Sodium (Unasyn 1.5gm/NS (Pmx)) 50 ml @ 100 mls/hr Q6 IVPB Last administered on 10/18/16 06:51; Admin Dose 100 MLS/HR; Start at 00:30 Miscellaneous Information This patient loaiza... PRN PRN XX WOUND CARE; Start at 02:00 Sodium Chloride 1,000 ml @ 70 mls/hr [id number] IV Last administered on 10/18/16 03:00; Admin Dose 70 MLS/HR; Start 10/18/16 at 02:30 Vancomycin HCl (Vancocin) 250 ml @ 125 mls/hr Q24H IVPB ; Start 10/19/16 at 01: 00 Hydralazine HCl (Apresoline) 10 mg Q6H PRN IV SBP>160 Last administered on 11:19; Admin Dose 10 MG; Start 10/18/16 at 11:00 SHAYY GENTILE MD Oct 18, 2016 12:45
[2016-10-18 12:57] LABS: AADO2 Arterial 252.9 mmHg (7.0-24.0); Allen Test ACCEPTAB; Arterial Base Excess 1.4 mmol/L (-3.0-3); Arterial COHb 0.3 % (0.0-3.0); Arterial Fraction of Oxyhgb 96.2 % (93.0-99.0); Arterial HCO3 24.8 mmol/L (22.0-26.0); Arterial MetHb 0.3 % (0.0-1.5); Arterial Total Hemglobin 10.8 g/dl (12.0-18.0); MODE MASK - SIMPLE
--- NOTE | 2016-10-18 13:19 | CONS ---
DATE OF ADMISSION: 10/17/2016 DATE OF CONSULTATION: 10/18/2016 REASON FOR CONSULTATION: Antibiotic management. HISTORY OF PRESENT ILLNESS: Qiana Meza is an 86-year-old female, with known history of dementia, who comes in now with sepsis and probable healthcare-associated pneumonia versus aspiration pneumonia and urinary tract infection. Patient was confused 12 hours prior to admission, also had difficulty breathing. Thy administered a non-breather and the patient's pulse ox improved to 95 percent. She was hypotensive in the emergency room and blood pressure is 73/33. They established IV access, gave her fluid challenge of 200 cc. In the emergency room, they had problems getting a blood pressure. She had been seen previously 4 days prior in the emergency room as well. They gave her a fluid challenge. She had foul-smelling urine. On admission, her white count was 15.6; today it is 18.1, H and H 10.3, 30.4, platelet count 537,000. BUN and creatinine are 19/0.63. Alkaline phosphatase is 142. Urine shows trace leukocyte esterase and 18 white cells per high-power field. A chest x-ray shows new patchy consolidation in the left lower lung zone consistent with infection or aspiration. Urine C and S so far shows no growth. Patient was begun on vancomycin and also on Unasyn and Levaquin. Patient also has history of hypothyroidism, dysphagia on dietary recommendation and she is status post right knee replacement. PAST MEDICAL HISTORY: Operations as outlined. FAMILY HISTORY: Noncontributory. SOCIAL HISTORY: She does not smoke, drink, or abuse drugs. ALLERGIES: NONE TO PENICILLIN, SULFA, OR FOODS. MEDICATION: Per chart. REVIEW OF SYSTEMS: As per HPI. PHYSICAL EXAMINATION: GENERAL: Patient is an 86-year-old female, who is lying in bed, lethargic, in no acute distress. VITAL SIGNS: Stable. She is afebrile. SKIN: Without generalized rash. HEENT: Within normal limits. NECK: Supple. Lymph nodes nonpalpable. CHEST: Decreased breath sounds at the bases. HEART: Without murmur or gallop. ABDOMEN: Soft, nontender, nondistended, without organosplenomegaly or masses. EXTREMITIES: Without cyanosis, clubbing, or edema. The surgical site of the right knee, dressing is clean, dry, and intact. NEUROLOGICAL: Patient is alert to person, not to place or time. She follows simple commands. She is able to move all extremities. There is no focal neurological abnormality. ANCILLARY LABORATORY DATA: EKG is unremarkable. CT scan of the brain: Normal munoz white matter differentiation with increased enlargement of the ventricles and subarachnoid spaces consistent with atrophy. There is decreased attenuation of the periventricular white matter consistent with microangiopathic ischemic changes and no intracranial hemorrhages. There are vascular calcifications consistent with atherosclerosis and she has some atrophy. IMPRESSION AND PLAN: Patient comes in now with either health- care associated or with aspiration pneumonia. She is on vancomycin, Unasyn and Levaquin. I am going to change her Levaquin and Unasyn to cefepime. I will dictate my findings to the hospitalist. Dictated By: Bo Cornelius MD JD/ada/kayla /Document#: [id number]
[2016-10-18] MEDS ORDERED: ENALAPRILAT 1.25 MG INJ IV ONE (15:00)
[2016-10-18] MEDS: ALBUTEROL/IPRATROPIUM (NEB) 3 ML AMP HHN SCH ×2 (15:12→19:12)
[2016-10-18] MEDS: PIPER-TAZO 3.375 GM IV (PMX) 100 ML IVPB SCH ×2 (15:32→21:32)
[2016-10-18] MEDS: BALSAM PERU/CASTOR OIL 60 GM TUBE TOP SCH (17:00)
[2016-10-18] MEDS: POTASSIUM CHLORIDE 250 ML IVPB SCH ×2 (17:14→22:56)
[2016-10-18] MEDS: NYSTATIN 30 GM POWDER BTL TOP SCH (20:51)
[2016-10-19] VITALS (27 sets, daily range): BP systolic 69–174; BP diastolic 36–147; PULSE 69–116; RESP 13–29
[2016-10-19] MEDS: VANCOMYCIN 1 GM in NS 250 ML IVPB SCH (01:00)
[2016-10-19 05:40] LABS: ABNORMAL IP MESSAGE 1; BASOPHIL # 0.1 10^3/ul (0.0-0.1); BASOPHILS % 0.4 % (0.0-2.0); EOSINOPHILS # 0.2 10^3/ul (0.0-0.5); EOSINOPHILS % 0.8 % (0.0-7.0); HEMATOCRIT 30.2 % (37.0-47.0); HEMOGLOBIN 10.1 g/dl (12.0-16.0); LYMPHOCYTES # 2.4 10^3/ul (0.8-2.9); LYMPHOCYTES % 12.8 % (15.0-51.0); MEAN CORPUSCULAR HEMOGLOBIN 31.9 pg (29.0-33.0); MEAN CORPUSCULAR HGB CONC 33.4 g/dl (32.0-37.0); MEAN CORPUSCULAR VOLUME 95.3 fl (82.0-101.0); MEAN PLATELET VOLUME 9.1 fl (7.4-10.4); MONOCYTE # 1.7 10^3/ul (0.3-0.9); MONOCYTES % 9.1 % (0.0-11.0); NEUTROPHIL # 14.2 10^3/ul (1.6-7.5); PLATELET COUNT 537 10^3/UL (140-415); RED BLOOD COUNT 3.17 10^6/ul (4.20-5.40); RED CELL DISTRIBUTION WIDTH 13.8 % (11.5-14.5); WHITE BLOOD COUNT 18.7 10^3/ul (4.8-10.8)
[2016-10-19] MEDS: PIPER-TAZO 3.375 GM IV (PMX) 100 ML IVPB SCH ×3 (05:48→21:04)
[2016-10-19 06:14] LABS: POSITIVE DIFF @See below
[2016-10-19 06:20] LABS: MAGNESIUM 2.2 mg/dl (1.7-2.5); PHOSPHORUS 2.6 mg/dl (2.5-4.9)
[2016-10-19 06:45] LABS: ALBUMIN 3.1 g/dl (3.3-4.9); ALBUMIN/GLOBULIN RATIO 0.91; BILIRUBIN,INDIRECT 0.5 mg/dl (0-1.1); BILIRUBIN,TOTAL 0.5 mg/dl (0.2-1.3); CALCIUM 8.9 mg/dl (8.4-10.2); CREATININE 0.7 mg/dl (0.44-1.00); POTASSIUM 4.6 mmol/L (3.5-5.1); TOTAL PROTEIN 6.5 g/dl (6.1-8.1)
[2016-10-19] MEDS: BALSAM PERU/CASTOR OIL 60 GM TUBE TOP SCH (08:25)
[2016-10-19] MEDS: NYSTATIN 30 GM POWDER BTL TOP SCH ×2 (08:26→21:05)
[2016-10-19] MEDS: ALBUTEROL/IPRATROPIUM (NEB) 3 ML AMP HHN SCH ×3 (09:54→21:15)
--- NOTE | 2016-10-19 12:13 | CONS ---
Date/Time of Note Date/Time of Note DATE: 10/19/16 TIME: 12:00 Assessment/Plan Assessment/Plan Chief Complaint/Hosp Course ID PROGRESS NOTE TOTAL ABX DAY # 2 CURRENT ABX: DAY #2 => Zosyn + Vanco IV s/p Vanco x1 10/18 s/p Ceftriaxone/Levaquin 8 24H INTERVAL SUMMARY * No fevers, WBC 18.7, TNS to ICU for respiratory distress -> O2 via simple FM, * 10/17/16 CXR: New patchy consolidation in the left lower lung zone is concerning for infection or aspiration. Physical examination: 86 yo F WN, WD, VSS, awake, alert, cooperative HEENT: Unremarkable - O2 via FM CHEST: Equal chest rise bilaterally without dyspnea on observation CV: Radial pulse RRR ABD: Soft, nontender : Deferred EXT: Warm, no cyanosis, SKIN: No rash, no diaphoresis ID ASSESSMENT 86 yo F w/mild dementia, dysphagia admit with: 1. Sepsis on admission w/Fevers 101.8, leukocytosis, lactic acidosis 2.9, acute hypoxic respiratory distress * BCx(-) * Urine Cx(-) * Afebrile * VSS 2. Acute encephalopathy - likely toxic metabolic, CT Brain no acute findings 3. Aspiration PNA 4. s/p recent R=TKR, with recent admission to rehab facility 5. Generalized weakness/deconditioning 6. Anemia, normocytic 7. Hypothyroid (-)MRSA Nares TOTAL ABX DAY # 2 CURRENT ABX: DAY #2 => Zosyn + Vanco IV s/p Vanco x1 10/18 s/p Ceftriaxone/Levaquin 8 ID RECOMMENDATIONS 1. Aspiration precautions -- appreciate speech Tx note 2. Continue Zosyn for aspiration PNA . Problems: Consultation Date/Type/Reason Admit Date/Time Oct 17, 2016 at 22:37 Initial Consult Date 10/18/16 Type of Consultation: ID Exam/Review of Systems Vital Signs Vitals Vital Signs Date Time Temp Pulse Resp B/P Pulse Ox O2 Delivery O2 Flow Rate FiO2 10/19/16 11:00 94 19 138/65 97 Mask 8.0 10/19/16 08:00 97.8 10/17/16 20:46 100 Intake and Output 10/18/16 10/18/16 10/19/16 15:00 23:00 07:00 Intake Total 932.5 ml 1097.5 ml Output Total 610 ml 690 ml 550 ml Balance -610 ml 242.5 ml 547.5 ml Results Result Diagram: 10/19/16 0512 10/19/16 0511 Results 24 hrs Laboratory Tests Test 10/19/16 05:11 10/19/16 05:12 Sodium Level 144 Potassium Level 4.6 Chloride Level 109 Carbon Dioxide Level 24 Anion Gap 16 Blood Urea Nitrogen 15 Creatinine 0.70 Glucose Level 109 Calcium Level 8.9 Phosphorus Level 2.6 Magnesium Level 2.2 Total Bilirubin 0.5 Direct Bilirubin 0.00 Indirect Bilirubin 0.5 Aspartate Amino Transf (AST/SGOT) 25 Alanine Aminotransferase (ALT/SGPT) 39 Alkaline Phosphatase 129 H Total Protein 6.5 Albumin 3.1 L Globulin 3.40 H Albumin/Globulin Ratio 0.91 White Blood Count 18.7 H Red Blood Count 3.17 L Hemoglobin 10.1 L Hematocrit 30.2 L Mean Corpuscular Volume 95.3 Mean Corpuscular Hemoglobin 31.9 Mean Corpuscular Hemoglobin Concent 33.4 Red Cell Distribution Width 13.8 Platelet Count 537 H Mean Platelet Volume 9.1 Neutrophils % 76.0 Lymphocytes % 12.8 L Monocytes % 9.1 Eosinophils % 0.8 Basophils % 0.4 Nucleated Red Blood Cells % 0.0 Neutrophils # 14.2 H Lymphocytes # 2.4 Monocytes # 1.7 H Eosinophils # 0.2 Basophils # 0.1 Nucleated Red Blood Cells # 0.0 Medications Medications Current Medications Miscellaneous Information This patient loaiza... PRN PRN XX WOUND CARE; Start at 02:00 Sodium Chloride 1,000 ml @ 70 mls/hr [id number] IV Last administered on 10/18/16 23:48; Admin Dose 70 MLS/HR; Start 10/18/16 at 02:30 Vancomycin HCl (Vancocin) 250 ml @ 125 mls/hr Q24H IVPB Last administered on 01:00; Admin Dose 125 MLS/HR; Start 10/19/16 at 01:00 Hydralazine HCl 10 mg 10 mg Q6H PRN IV SBP>160 Last administered on 10/18/16 11 :19; Admin Dose 10 MG; Start 10/18/16 at 11:00 Piperacillin Sod/ Tazobactam Sod (Zosyn 3.375gm/ 100 ml (Pmx)) 100 ml @ 200 mls /hr Q8 IVPB Last administered on 10/19/16 05:48; Admin Dose 200 MLS/HR; Start 10/18/16 at 14:00 Nystatin (Nystatin Powder) 1 applic BID TOP Last administered on 10/19/16 08:26 ; Admin Dose 1 APPLIC; Start 10/18/16 at 21:00 LUIS GRAYSON NP Oct 19, 2016 12:11
[2016-10-19] MEDS: ENOXAPARIN 40 MG/0.4 ML SYG SC SCH (13:34)
--- NOTE | 2016-10-19 16:16 | PN ---
Date/Time of Note Date/Time of Note DATE: 10/19/16 TIME: 16:14 Assessment/Plan VTE Prophylaxis VTE Prophylaxis Intervention: LMWH Lines/Catheters IV Catheter Type (from Nrs): Saline Lock Urinary Cath still in place: Yes Reason Cath still needed: urinary retention, other (indicate) (strict I/O ) Assessment/Plan Assessment/Plan #1 sepsis: Healthcare associated pneumonia versus aspiration pneumonia and urinary tract infection. Patient was recently in a rehab facility. Currently not in respiratory distress. Will treat right now with IV empiric antibiotics with vancomycin, Unasyn, and Levaquin. IVF , ID following, speech consultation #2 Dementia: Patient has baseline dementia and she does appear to be lethargic and confused at this time. Her current mental status likely is probably compounded with underlying infection. We will continue to treat the underlying infection with IV antibiotics as per #1. Monitor mental status. #3 anemia: Normocytic anemia. At the current time we will continue to monitor this no signs of bleeding at this time. #4 hypothyroidism: Continue home medication #5 dysphagia: We will consult dietary for diet recommendations. #6 right knee replacement: At the current time we will monitor this. Will need to discuss with family patient's actual ambulation status and consult PT if necessary #7 DVT and GI prophylaxis: lovenox , Protonix Subjective 24 Hr Interval Summary Free Text/Dictation reamined stable, still on high flow oxygen, on restraitns,mittens Exam/Review of Systems Vital Signs Vitals Vital Signs Date Time Temp Pulse Resp B/P Pulse Ox O2 Delivery O2 Flow Rate FiO2 10/19/16 15:00 108 14 149/73 95 10/19/16 14:00 Mask 8.0 10/19/16 12:00 98.3 10/17/16 20:46 100 Intake and Output 10/18/16 10/18/16 10/19/16 15:00 23:00 07:00 Intake Total 932.5 ml 1097.5 ml Output Total 610 ml 690 ml 550 ml Balance -610 ml 242.5 ml 547.5 ml Exam HEENT: Unremarkable - O2 via FM CHEST: Equal chest rise bilaterally without dyspnea on observation CV: Radial pulse RRR ABD: Soft, nontender : Deferred EXT: Warm, no cyanosis, SKIN: No rash, no diaphoresis Results Result Diagram: 10/19/16 0512 10/19/16 0511 Results 24 hrs Laboratory Tests Test 10/19/16 05:11 10/19/16 05:12 Sodium Level 144 Potassium Level 4.6 Chloride Level 109 Carbon Dioxide Level 24 Anion Gap 16 Blood Urea Nitrogen 15 Creatinine 0.70 Glucose Level 109 Calcium Level 8.9 Phosphorus Level 2.6 Magnesium Level 2.2 Total Bilirubin 0.5 Direct Bilirubin 0.00 Indirect Bilirubin 0.5 Aspartate Amino Transf (AST/SGOT) 25 Alanine Aminotransferase (ALT/SGPT) 39 Alkaline Phosphatase 129 H Total Protein 6.5 Albumin 3.1 L Globulin 3.40 H Albumin/Globulin Ratio 0.91 White Blood Count 18.7 H Red Blood Count 3.17 L Hemoglobin 10.1 L Hematocrit 30.2 L Mean Corpuscular Volume 95.3 Mean Corpuscular Hemoglobin 31.9 Mean Corpuscular Hemoglobin Concent 33.4 Red Cell Distribution Width 13.8 Platelet Count 537 H Mean Platelet Volume 9.1 Neutrophils % 76.0 Lymphocytes % 12.8 L Monocytes % 9.1 Eosinophils % 0.8 Basophils % 0.4 Nucleated Red Blood Cells % 0.0 Neutrophils # 14.2 H Lymphocytes # 2.4 Monocytes # 1.7 H Eosinophils # 0.2 Basophils # 0.1 Nucleated Red Blood Cells # 0.0 Medications Medications Current Medications Miscellaneous Information This patient loaiza... PRN PRN XX WOUND CARE; Start at 02:00 Sodium Chloride 1,000 ml @ 70 mls/hr [id number] IV Last administered on 10/18/16 23:48; Admin Dose 70 MLS/HR; Start 10/18/16 at 02:30 Vancomycin HCl (Vancocin) 250 ml @ 125 mls/hr Q24H IVPB Last administered on 01:00; Admin Dose 125 MLS/HR; Start 10/19/16 at 01:00 Hydralazine HCl 10 mg 10 mg Q6H PRN IV SBP>160 Last administered on 10/18/16 11 :19; Admin Dose 10 MG; Start 10/18/16 at 11:00 Piperacillin Sod/ Tazobactam Sod (Zosyn 3.375gm/ 100 ml (Pmx)) 100 ml @ 200 mls /hr Q8 IVPB Last administered on 10/19/16 13:33; Admin Dose 200 MLS/HR; Start 10/18/16 at 14:00 Nystatin (Nystatin Powder) 1 applic BID TOP Last administered on 10/19/16 08:26 ; Admin Dose 1 APPLIC; Start 10/18/16 at 21:00 Enoxaparin Sodium (Lovenox) 40 mg DAILY SC Last administered on 10/19/16 13:34 ; Admin Dose 40 MG; Start 10/19/16 at 13:00 LORENZO BONNER MD Oct 19, 2016 16:16
[2016-10-19] MEDS: SOD CHLORIDE 0.9% 1,000 ML IV SCH ×2 (16:29→21:05)
--- NOTE | 2016-10-19 21:09 | CONS ---
DATE OF ADMISSION: 10/17/2016 DATE OF CONSULTATION: 10/19/2016 REASON FOR CONSULTATION: Respiratory distress. Thank you Doctor for this consultation. HISTORY OF PRESENT ILLNESS: This is an 86-year-old lady with multiple medical problems including dementia, recent right total knee replacement on 10/04/2016 and following admission at longterm facility presents with increasing shortness of breath with orthopnea and PND and found to have left lower lobe infiltrate with leukocytosis and hypoxemic respiratory failure. The patient has dementia and is unable to give me further details. PAST MEDICAL HISTORY: Dementia for the 4 to 5 years, normocytic anemia, hypothyroidism, and right knee replacement. MEDICATION: Per chart. ALLERGIES: SULFA DRUGS, MORPHINE, AND . SOCIAL HISTORY: She is a nonsmoker, no alcohol, and no history of drug use. FAMILY HISTORY: Noncontributory. REVIEW OF SYSTEMS: The 12 point review of systems currently unable to perform. PHYSICAL EXAMINATION: GENERAL APPEARANCE: Chronically ill appearing lady on facemask O2. Currently afebrile. VITAL SIGNS: Pulse is 100, blood pressure 160/100, O2 sat 96 percent on 6 liters facemask. NECK: Supple. No JVD or lymphadenopathy. CARDIAC: S1 and S2, no added sounds. CHEST: Diminished air entry both lung bases. ABDOMEN: Soft, nontender, no guarding or rebound. EXTREMITIES: No cyanosis, clubbing, or edema. NEUROLOGIC: No generalized weakness. LABORATORY: White count 18.7, hemoglobin 10.1, platelets 537. BUN 15, creatinine 0.7, alk phos 129. ABG, pH 7.47, PCO2 34, PO2 86. INR was 1.01. Urinalysis shows trace leuk esterase, negative nitrates. Chest x-ray was reviewed and shows left lower lobe infiltrate. CT of the brain shows microangiopathic ischemic changes. IMPRESSION: 1. Hypoxemic respiratory failure. 2. Health care associated pneumonia. 3. Possible aspiration pneumonia. 4. History of dementia. 5. Severe sepsis. PLAN: 1. The patient will need 1 continued antibiotic therapy, currently on vancomycin and Zosyn. 2. Continue bronchodilators. 3. Blood pressure management. 4. DVT and GI prophylaxis. 5. Aspiration precautions and speech therapy recommendations. 6. I had a long discussion with the patient's daughter, Francisco, telephone number [phone]. Discussed with her her mother's condition and also discussed goals of care. Currently the family wishes to continue all aggressive measures including intubation and mechanical ventilation for a short time if necessary. Dictated By: Masood Wilson MD /ada/zee /Document#: [id number]
[2016-10-19 21:46] LABS: AADO2 Arterial 610.1 mmHg (7.0-24.0); Allen Test ACCEPTAB; Arterial Base Excess -2.2 mmol/L (-3.0-3); Arterial COHb 0.3 % (0.0-3.0); Arterial Fraction of Oxyhgb 88.2 % (93.0-99.0); Arterial HCO3 23.6 mmol/L (22.0-26.0); Arterial MetHb 0.2 % (0.0-1.5); Arterial Total Hemglobin 11.7 g/dl (12.0-18.0); MODE MASK - NRB
[2016-10-19] MEDS: hydrALAzine 20 MG INJ IV PRN (21:49)
[2016-10-19] MEDS ORDERED: LORAZEPAM 2 MG INJ IV ONE (22:00)
[2016-10-20] VITALS (47 sets, daily range): BP systolic 79–156; BP diastolic 37–111; PULSE 72–100; RESP 12–43
[2016-10-20 00:09] LABS: AADO2 Arterial 577.6 mmHg (7.0-24.0); Allen Test ACCEPTAB; Arterial Base Excess 0.6 mmol/L (-3.0-3); Arterial COHb 0.2 % (0.0-3.0); Arterial HCO3 24.4 mmol/L (22.0-26.0); Arterial MetHb 0.2 % (0.0-1.5); Arterial Total Hemglobin 10.2 g/dl (12.0-18.0); MODE MASK - NRB
[2016-10-20] MEDS: VANCOMYCIN 1 GM in NS 250 ML IVPB SCH (00:52)
[2016-10-20] MEDS ORDERED: ROCURONIUM 50 MG INJ IV STA (01:33)
--- NOTE | 2016-10-20 01:42 | QN ---
Documentation Comment Called to room 105 the ICU for emergent intubation by Dr. Dawson. Patient had increasing work of breathing was very ill it was thought that impending respiratory failure was imminent. ET intubation note: Patient was preoxygenated with bag mask ventilation and RSI was used with 20 of etomidate 100 rocuronium. Size MAC 4 blade was used to easily introduce a 7.5 ET tube through the visualized vocal cords in one attempt with no stylette. Entitled CO2 confirmed placement. Patient had tolerated the procedure well with no complications. Oxygen saturation 100% after the procedure. CHRISTEL GUY DO Oct 20, 2016 01:42
[2016-10-20] MEDS ORDERED: ETOMIDATE 20 MG INJ IV ONE (02:00)
--- NOTE | 2016-10-20 02:37 | RADRPT ---
PROCEDURE: XR Chest. CLINICAL INDICATION: Status post intubation.. TECHNIQUE: Single frontal chest x-ray. COMPARISON: 10/17/2016 FINDINGS: Endotracheal tube is in place with the tip 1 cm above the ba slightly deviated to the right.. H eart is mildly enlarged. Pulmonary vessels are top normal caliber.. There is hypoventilation with r ight basilar atelectasis. There is left infrahilar and basilar infiltrates, increased.. There is n o pleural effusion. There is no pneumothorax. The osseous structures are unremarkable. IMPRESSION: Endotracheal tube tip is 1 cm above the ba slightly deviated to the right. Increased right basi lar atelectasis. Slight increase in left basilar infiltrate. Otherwise no change. RPTAT: HMVK .Rodríguez Rodriguez MD, MD Date Time Electronically viewed and signed by .Rodríguez Rodriguez MD, on 10/20/2016 02:37 .K/
--- NOTE | 2016-10-20 03:31 | RADRPT ---
PROCEDURE: Chest. CLINICAL INDICATION: Chest pain. TECHNIQUE: Single frontal view of the chest was obtained. COMPARISON: 10/20/2016. FINDINGS: There is an endotracheal tube 3.5 cm above the ba. The cardiac silhouette is magnified. The ao rtic arch is calcified. There is mild bibasilar atelectasis and small right pleural effusion. Ther e is no pneumothorax. IMPRESSION: Endotracheal tube in place. Mild bibasilar atelectasis and small right pleural effusion, slightly increased. Aortic atherosclerosis. .uQan Radford MD, MD Date Time Electronically viewed and signed by .Quan Radford MD, MD on 10/20/2016 03:30 .T/
[2016-10-20 04:35] LABS: AADO2 Arterial 490.3 mmHg (7.0-24.0); Allen Test ACCEPTAB; Arterial Base Excess 2.2 mmol/L (-3.0-3); Arterial COHb 0.2 % (0.0-3.0); Arterial Fraction of Oxyhgb 98.5 % (93.0-99.0); Arterial HCO3 25.6 mmol/L (22.0-26.0); Arterial MetHb 0.2 % (0.0-1.5); Arterial Total Hemglobin 10.6 g/dl (12.0-18.0); MODE VENT - AC
[2016-10-20 05:35] LABS: BASOPHIL # 0.1 10^3/ul (0.0-0.1); BASOPHILS % 0.4 % (0.0-2.0); EOSINOPHILS # 0.1 10^3/ul (0.0-0.5); EOSINOPHILS % 0.8 % (0.0-7.0); HEMATOCRIT 28.5 % (37.0-47.0); HEMOGLOBIN 9.5 g/dl (12.0-16.0); LYMPHOCYTES # 2.2 10^3/ul (0.8-2.9); LYMPHOCYTES % 15.7 % (15.0-51.0); MEAN CORPUSCULAR HEMOGLOBIN 31.5 pg (29.0-33.0); MEAN CORPUSCULAR HGB CONC 33.3 g/dl (32.0-37.0); MEAN CORPUSCULAR VOLUME 94.4 fl (82.0-101.0); MEAN PLATELET VOLUME 8.9 fl (7.4-10.4); MONOCYTE # 1.3 10^3/ul (0.3-0.9); MONOCYTES % 8.9 % (0.0-11.0); NEUTROPHIL # 10.5 10^3/ul (1.6-7.5); NEUTROPHILS % 73.4 % (39.0-77.0); PLATELET COUNT 533 10^3/UL (140-415); RED BLOOD COUNT 3.02 10^6/ul (4.20-5.40); RED CELL DISTRIBUTION WIDTH 13.9 % (11.5-14.5); WHITE BLOOD COUNT 14.2 10^3/ul (4.8-10.8)
[2016-10-20] MEDS: PIPER-TAZO 3.375 GM IV (PMX) 100 ML IVPB SCH ×3 (06:03→21:54)
[2016-10-20 06:38] LABS: CALCIUM 8.7 mg/dl (8.4-10.2); CREATININE 0.74 mg/dl (0.44-1.00); PHOSPHORUS 2.5 mg/dl (2.5-4.9); POTASSIUM 3.1 mmol/L (3.5-5.1)
[2016-10-20] MEDS: hydrALAzine 20 MG INJ IV PRN (06:40)
--- NOTE | 2016-10-20 07:13 | CONS ---
Date/Time of Note Date/Time of Note DATE: 10/20/16 TIME: 07:10 Assessment/Plan Assessment/Plan Additional Assessment/Plan Sepsis syndrome Altered mental status Dementia Urosepsis Respiratory failure Shock I reviewed patient medical records we will ask case management to schedule conference with family members patient is a full code. After I speak with family members or patient's agent a full palliative care note will be done. Consultation Date/Type/Reason Admit Date/Time Oct 17, 2016 at 22:37 Date of Consultation: Oct 20, 2016 Reason for Consultation Palliative care Hx of Present Illness 86-year-old female brought to the emergency room [facility] and respiratory distress, hypotensive diagnosed with urinary tract infection and shock. Patient has a baseline mental status dementia currently altered history could not be obtained. Information from EMS was that patient was in respiratory distress saturations in the 80 which picked up after patient had a nonrebreather mask placed. More information is to be obtained after speaking with family members and reviewing medical records from [facility]. Social History Smoking Status: Never smoker Exam/Review of Systems Vital Signs Vitals Vital Signs Date Time Temp Pulse Resp B/P Pulse Ox O2 Delivery O2 Flow Rate FiO2 10/20/16 06:00 84 14 144/83 96 Mechanical Ventilator 10/20/16 04:46 60 10/20/16 04:00 97.3 10/20/16 01:00 15.0 Intake and Output 10/19/16 10/19/16 10/20/16 15:00 23:00 07:00 Intake Total 490 ml 210 ml 420 ml Output Total 535 ml 140 ml 500 ml Balance -45 ml 70 ml -80 ml Results Result Diagram: 10/20/16 0456 10/20/16 0456 Results 24 hrs Laboratory Tests Test 10/19/16 21:35 10/19/16 23:00 10/20/16 04:15 10/20/16 04:56 Blood Gas Specimen Source Blood arterial Blood arterial Blood arterial Arterial Blood Date Drawn 10/19/2016 9:35:58 PM 10/20/2016 12:00:54 AM 10/20/2016 4:06:01 AM Arterial Blood pH (Temp corrected) 7.340 L 7.448 7.479 H Arterial Blood pCO2 (Temp correct) 44.8 36.1 35.2 Arterial Blood pO2 (Temp corrected) 58.1 L 99.3 H 187.5 H Arterial Blood HCO3 23.6 24.4 25.6 Arterial Blood Base Excess -2.2 0.6 2.2 Arterial Blood Oxygen Saturation 88.6 L 97.4 98.9 Alpesh Test ACCEPTAB ACCEPTAB ACCEPTAB Arterial Blood Gas Puncture Site Right Radial Left Radial Right Radial Arterial Blood Carboxyhemoglobin 0.3 0.2 0.2 Arterial Blood Methemoglobin 0.2 0.2 0.2 Blood Gas A-a O2 Differential 610.1 H 577.6 H 490.3 H Oxyhemoglobin Percent 88.2 L 97.0 98.5 Total Hemoglobin 11.7 L 10.2 L 10.6 L Blood Gas Temperature 37.0 37.0 37.0 Blood Gas Actual Respiration Rate 30 15 Blood Gas Modality MASK - NRB MASK - NRB VENT - AC FiO2 100.0 100.0 100.0 Blood Gas Notified Whom Joselyn NÚÑEZ RCP Blood Gas Notified Time 10/19/2016 9:46:34 PM 10/20/2016 12:09:32 AM 10/20/2016 4:16:54 AM Blood Gas Respiration Rate 14.0 Blood Gas Tidal Volume 500.0 Blood Gas Low PEEP Setting 5.0 White Blood Count 14.2 #H Red Blood Count 3.02 L Hemoglobin 9.5 L Hematocrit 28.5 L Mean Corpuscular Volume 94.4 Mean Corpuscular Hemoglobin 31.5 Mean Corpuscular Hemoglobin Concent 33.3 Red Cell Distribution Width 13.9 Platelet Count 533 H Mean Platelet Volume 8.9 Neutrophils % 73.4 Lymphocytes % 15.7 Monocytes % 8.9 Eosinophils % 0.8 Basophils % 0.4 Nucleated Red Blood Cells % 0.0 Neutrophils # 10.5 H Lymphocytes # 2.2 Monocytes # 1.3 H Eosinophils # 0.1 Basophils # 0.1 Nucleated Red Blood Cells # 0.0 Sodium Level 143 Potassium Level 3.1 L Chloride Level 104 Carbon Dioxide Level 27 Anion Gap 15 Blood Urea Nitrogen 15 Creatinine 0.74 Glucose Level 110 Calcium Level 8.7 Phosphorus Level 2.5 Magnesium Level 2.0 Medications Medications Current Medications Miscellaneous Information This patient loaiza... PRN PRN XX WOUND CARE; Start at 02:00 Sodium Chloride 1,000 ml @ 70 mls/hr [id number] IV Last administered on 10/19/16 16:29; Admin Dose 70 MLS/HR; Start 10/18/16 at 02:30 Vancomycin HCl (Vancocin) 250 ml @ 125 mls/hr Q24H IVPB Last administered on 00:52; Admin Dose 125 MLS/HR; Start 10/19/16 at 01:00 Hydralazine HCl 10 mg 10 mg Q6H PRN IV SBP>160 Last administered on 10/20/16 06:40; Admin Dose 10 MG; Start 10/18/16 at 11:00 Piperacillin Sod/ Tazobactam Sod (Zosyn 3.375gm/ 100 ml (Pmx)) 100 ml @ 200 mls /hr Q8 IVPB Last administered on 10/20/16 06:03; Admin Dose 200 MLS/HR; Start 10/18/16 at 14:00 Nystatin (Nystatin Powder) 1 applic BID TOP Last administered on 10/19/16 21:05 ; Admin Dose 1 APPLIC; Start 10/18/16 at 21:00 Enoxaparin Sodium (Lovenox) 40 mg DAILY SC Last administered on 10/19/16 13:34 ; Admin Dose 40 MG; Start 10/19/16 at 13:00 JUSTINE TRUJILLO Oct 20, 2016 07:13
[2016-10-20] MEDS: IPRATROPIUM (HFA) 12.9 GM INHALER INH SCH ×3 (08:00→19:39)
[2016-10-20] MEDS: ALBUTEROL 18 GM INHALER INH SCH ×3 (08:00→19:39)
[2016-10-20] MEDS: BALSAM PERU/CASTOR OIL 60 GM TUBE TOP SCH (09:20)
[2016-10-20] MEDS: NYSTATIN 30 GM POWDER BTL TOP SCH ×2 (09:20→20:40)
[2016-10-20] MEDS: ENOXAPARIN 40 MG/0.4 ML SYG SC SCH (09:21)
--- NOTE | 2016-10-20 09:32 | CONS ---
Date/Time of Note Date/Time of Note DATE: 10/20/16 TIME: 09:30 Consult Date/Type/Reason Admit Date/Time Oct 17, 2016 at 22:37 Initial Consult Date 10/20/16 Type of Consultation: Pulmonary Subjective Patient has increasing work of breathing yesterday altered mental status requiring emergent intubation mechanical ventilation Currently she continues mechanical ventilation without vasopressor support. Appears comfortable. Objective Vital Signs Date Time Temp Pulse Resp B/P Pulse Ox O2 Delivery O2 Flow Rate FiO2 10/20/16 07:05 89 14 97 60 10/20/16 06:00 144/83 Mechanical Ventilator 10/20/16 04:00 97.3 10/20/16 01:00 15.0 Intake and Output 10/19/16 10/19/16 10/20/16 15:00 23:00 07:00 Intake Total 490 ml 210 ml 420 ml Output Total 535 ml 140 ml 500 ml Balance -45 ml 70 ml -80 ml Exam PHYSICAL EXAMINATION GENERAL: Elderly lady, intubated on mechanical ventilation, opens eyes and appears somewhat agitated. Orally intubated. VITAL SIGNS: see below. HEENT: Pupils equal, round, and reactive to light. CARDIAC: S1, S2, 1/6 systolic ejection murmur CHEST: Diminished air entry bilaterally. ABDOMEN: Mildly distended. Bowel sounds present no guarding or rebound EXTREMITIES: No cyanosis, clubbing edema +1 NEUROLOGIC: Generalized weakness Results/Medications Result Diagram: 10/20/16 0456 10/20/16 0456 Results 24 hrs Laboratory Tests Test 10/19/16 21:35 10/19/16 23:00 10/20/16 04:15 10/20/16 04:56 Blood Gas Specimen Source Blood arterial Blood arterial Blood arterial Arterial Blood Date Drawn 10/19/2016 9:35:58 PM 10/20/2016 12:00:54 AM 10/20/2016 4:06:01 AM Arterial Blood pH (Temp corrected) 7.340 L 7.448 7.479 H Arterial Blood pCO2 (Temp correct) 44.8 36.1 35.2 Arterial Blood pO2 (Temp corrected) 58.1 L 99.3 H 187.5 H Arterial Blood HCO3 23.6 24.4 25.6 Arterial Blood Base Excess -2.2 0.6 2.2 Arterial Blood Oxygen Saturation 88.6 L 97.4 98.9 Alpesh Test ACCEPTAB ACCEPTAB ACCEPTAB Arterial Blood Gas Puncture Site Right Radial Left Radial Right Radial Arterial Blood Carboxyhemoglobin 0.3 0.2 0.2 Arterial Blood Methemoglobin 0.2 0.2 0.2 Blood Gas A-a O2 Differential 610.1 H 577.6 H 490.3 H Oxyhemoglobin Percent 88.2 L 97.0 98.5 Total Hemoglobin 11.7 L 10.2 L 10.6 L Blood Gas Temperature 37.0 37.0 37.0 Blood Gas Actual Respiration Rate 30 15 Blood Gas Modality MASK - NRB MASK - NRB VENT - AC FiO2 100.0 100.0 100.0 Blood Gas Notified Whom Joselyn NÚÑEZ [employer] Blood Gas Notified Time 10/19/2016 9:46:34 PM 10/20/2016 12:09:32 AM 10/20/2016 4:16:54 AM Blood Gas Respiration Rate 14.0 Blood Gas Tidal Volume 500.0 Blood Gas Low PEEP Setting 5.0 White Blood Count 14.2 #H Red Blood Count 3.02 L Hemoglobin 9.5 L Hematocrit 28.5 L Mean Corpuscular Volume 94.4 Mean Corpuscular Hemoglobin 31.5 Mean Corpuscular Hemoglobin Concent 33.3 Red Cell Distribution Width 13.9 Platelet Count 533 H Mean Platelet Volume 8.9 Neutrophils % 73.4 Lymphocytes % 15.7 Monocytes % 8.9 Eosinophils % 0.8 Basophils % 0.4 Nucleated Red Blood Cells % 0.0 Neutrophils # 10.5 H Lymphocytes # 2.2 Monocytes # 1.3 H Eosinophils # 0.1 Basophils # 0.1 Nucleated Red Blood Cells # 0.0 Sodium Level 143 Potassium Level 3.1 L Chloride Level 104 Carbon Dioxide Level 27 Anion Gap 15 Blood Urea Nitrogen 15 Creatinine 0.74 Glucose Level 110 Calcium Level 8.7 Phosphorus Level 2.5 Magnesium Level 2.0 Medications Current Medications Miscellaneous Information This patient loaiza... PRN PRN XX WOUND CARE; Start at 02:00 Sodium Chloride 1,000 ml @ 70 mls/hr [id number] IV Last administered on 10/19/16 16:29; Admin Dose 70 MLS/HR; Start 10/18/16 at 02:30 Vancomycin HCl (Vancocin) 250 ml @ 125 mls/hr Q24H IVPB Last administered on 00:52; Admin Dose 125 MLS/HR; Start 10/19/16 at 01:00 Hydralazine HCl 10 mg 10 mg Q6H PRN IV SBP>160 Last administered on 10/20/16 06:40; Admin Dose 10 MG; Start 10/18/16 at 11:00 Piperacillin Sod/ Tazobactam Sod (Zosyn 3.375gm/ 100 ml (Pmx)) 100 ml @ 200 mls /hr Q8 IVPB Last administered on 10/20/16 06:03; Admin Dose 200 MLS/HR; Start 10/18/16 at 14:00 Nystatin (Nystatin Powder) 1 applic BID TOP Last administered on 10/20/16 09: 20; Admin Dose 1 APPLIC; Start 10/18/16 at 21:00 Enoxaparin Sodium (Lovenox) 40 mg DAILY SC Last administered on 10/20/16 09:21 ; Admin Dose 40 MG; Start 10/19/16 at 13:00 Assessment/Plan Chief Complaint/Hosp Course Assessment 1. Hypoxemic respiratory failure 2. Possible aspiration pneumonia versus healthcare associated pneumonia 3. History of progressive dementia 4. History of recent right total knee replacement 5. Hypokalemia Plan 1. Continue mechanical ventilation 2. Continue broad-spectrum antibiotic coverage pending cultures 2. Start tube feeding 4. DVT and GI prophylaxis 5. Replace potassium Disposition Continue ICU care. Problems: NEELAM RAMIREZ MD, [facility] Oct 20, 2016 09:32
[2016-10-20] MEDS: SOD CHLORIDE 0.9% 1,000 ML IV SCH (10:31)
[2016-10-20] MEDS ORDERED: POTASSIUM CHLORIDE 250 ML IVPB ONE (11:30)
--- NOTE | 2016-10-20 11:55 | CONS ---
Date/Time of Note Date/Time of Note DATE: 10/20/16 TIME: 11:48 Assessment/Plan Assessment/Plan Chief Complaint/Hosp Course 86-year-old female brought to the emergency room [facility] and respiratory distress, hypotensive diagnosed with urinary tract infection and shock. Patient has a baseline mental status dementia currently altered history could not be obtained. Information from EMS was that patient was in respiratory distress saturations in the 80 which picked up after patient had a nonrebreather mask placed. More information is to be obtained after speaking with family members and reviewing medical records from [facility]. Problems: Additional Assessment/Plan Respiratory distress Shock Sepsis New left infiltrate Dementia Leukocytosis History of knee replacement I will contact family members through social work service and schedule a family conference as soon as possible. Consultation Date/Type/Reason Admit Date/Time Oct 17, 2016 at 22:37 Date of Consultation: Oct 20, 2016 Reason for Consultation Is an 86-year-old female who is in the intensive care unit [facility] with respiratory failure. Patient was brought to [facility] emergency room with some degree of respiratory distress but by history was she had mental status change although it is unclear his patient has baseline dementia. It is not clear about her baseline cognitive condition mild/ moderate or severe. Patient's x-ray on admission shows a new area of atelectasis possible infiltrate left lower lobe suspicious for aspiration. Patient remains intubated on 100% FiO2 she is a full code there are no family members immediately available to speak with Past Medical History Medical History: other (Unknown past medical history) Social History Smoking Status: Never smoker Exam/Review of Systems Vital Signs Vitals Vital Signs Date Time Temp Pulse Resp B/P Pulse Ox O2 Delivery O2 Flow Rate FiO2 10/20/16 11:05 93 14 99 60 10/20/16 09:00 127/53 Mechanical Ventilator 10/20/16 08:00 99.0 10/20/16 01:00 15.0 Intake and Output 10/19/16 10/19/16 10/20/16 15:00 23:00 07:00 Intake Total 490 ml 210 ml 420 ml Output Total 535 ml 140 ml 500 ml Balance -45 ml 70 ml -80 ml Exam Respiratory: congested cough, crackles/rales, diminished breath sounds Cardiovascular: No S3, No S4, No bruits, No diastolic murmur, No edema, No gallop, No irregular rhythm, No jugular venous distention (JVD), No murmurs/ extra sounds, No nl pulses, No other, No regular rate and rhythm, No rub, No systolic murmur Neurological: unresponsive Results Result Diagram: 10/20/16 0456 10/20/16 0456 Results 24 hrs Laboratory Tests Test 10/19/16 21:35 10/19/16 23:00 10/20/16 04:15 10/20/16 04:56 Blood Gas Specimen Source Blood arterial Blood arterial Blood arterial Arterial Blood Date Drawn 10/19/2016 9:35:58 PM 10/20/2016 12:00:54 AM 10/20/2016 4:06:01 AM Arterial Blood pH (Temp corrected) 7.340 L 7.448 7.479 H Arterial Blood pCO2 (Temp correct) 44.8 36.1 35.2 Arterial Blood pO2 (Temp corrected) 58.1 L 99.3 H 187.5 H Arterial Blood HCO3 23.6 24.4 25.6 Arterial Blood Base Excess -2.2 0.6 2.2 Arterial Blood Oxygen Saturation 88.6 L 97.4 98.9 Alpesh Test ACCEPTAB ACCEPTAB ACCEPTAB Arterial Blood Gas Puncture Site Right Radial Left Radial Right Radial Arterial Blood Carboxyhemoglobin 0.3 0.2 0.2 Arterial Blood Methemoglobin 0.2 0.2 0.2 Blood Gas A-a O2 Differential 610.1 H 577.6 H 490.3 H Oxyhemoglobin Percent 88.2 L 97.0 98.5 Total Hemoglobin 11.7 L 10.2 L 10.6 L Blood Gas Temperature 37.0 37.0 37.0 Blood Gas Actual Respiration Rate 30 15 Blood Gas Modality MASK - NRB MASK - NRB VENT - AC FiO2 100.0 100.0 100.0 Blood Gas Notified Whom Joselyn NÚÑEZ RCP Blood Gas Notified Time 10/19/2016 9:46:34 PM 10/20/2016 12:09:32 AM 10/20/2016 4:16:54 AM Blood Gas Respiration Rate 14.0 Blood Gas Tidal Volume 500.0 Blood Gas Low PEEP Setting 5.0 White Blood Count 14.2 #H Red Blood Count 3.02 L Hemoglobin 9.5 L Hematocrit 28.5 L Mean Corpuscular Volume 94.4 Mean Corpuscular Hemoglobin 31.5 Mean Corpuscular Hemoglobin Concent 33.3 Red Cell Distribution Width 13.9 Platelet Count 533 H Mean Platelet Volume 8.9 Neutrophils % 73.4 Lymphocytes % 15.7 Monocytes % 8.9 Eosinophils % 0.8 Basophils % 0.4 Nucleated Red Blood Cells % 0.0 Neutrophils # 10.5 H Lymphocytes # 2.2 Monocytes # 1.3 H Eosinophils # 0.1 Basophils # 0.1 Nucleated Red Blood Cells # 0.0 Sodium Level 143 Potassium Level 3.1 L Chloride Level 104 Carbon Dioxide Level 27 Anion Gap 15 Blood Urea Nitrogen 15 Creatinine 0.74 Glucose Level 110 Calcium Level 8.7 Phosphorus Level 2.5 Magnesium Level 2.0 Medications Medications Current Medications Miscellaneous Information This patient loaiza... PRN PRN XX WOUND CARE; Start at 02:00 Sodium Chloride 1,000 ml @ 70 mls/hr [id number] IV Last administered on 10:31; Admin Dose 70 MLS/HR; Start 10/18/16 at 02:30 Vancomycin HCl (Vancocin) 250 ml @ 125 mls/hr Q24H IVPB Last administered on 00:52; Admin Dose 125 MLS/HR; Start 10/19/16 at 01:00 Hydralazine HCl 10 mg 10 mg Q6H PRN IV SBP>160 Last administered on 10/20/16 06:40; Admin Dose 10 MG; Start 10/18/16 at 11:00 Piperacillin Sod/ Tazobactam Sod (Zosyn 3.375gm/ 100 ml (Pmx)) 100 ml @ 200 mls /hr Q8 IVPB Last administered on 10/20/16 06:03; Admin Dose 200 MLS/HR; Start 10/18/16 at 14:00 Nystatin (Nystatin Powder) 1 applic BID TOP Last administered on 10/20/16 09: 20; Admin Dose 1 APPLIC; Start 10/18/16 at 21:00 Enoxaparin Sodium 40 mg 40 mg DAILY SC Last administered on 10/20/16 09:21; Admin Dose 40 MG; Start 10/19/16 at 13:00 Midazolam HCl (Versed) 50 ml @ 1 mls/hr TITRATE IV ; Start 8/10/17 at 10:00 Miscellaneous Information VANCO TROUGH @ 0,000 ON... ONCE ONCE XX ; Start 01/27 at 00:00; Stop 10/21/16 at 00:01 Potassium Chloride (KCl 40 MEQ/250 ML NS) 250 ml @ 62.5 mls/hr ONCE ONCE IVPB ; Start 10/20/16 at 11:30; Stop 10/20/16 at 15:29 JUSTINE TRUJILLO Oct 20, 2016 11:55
--- NOTE | 2016-10-20 13:15 | CONS ---
Date/Time of Note Date/Time of Note DATE: 10/20/16 TIME: 12:54 Assessment/Plan Assessment/Plan Chief Complaint/Hosp Course ID PROGRESS NOTE TOTAL ABX DAY #3 CURRENT ABX: DAY #3 => Zosyn + Vanco IV s/p Vanco x1 10/18 s/p Ceftriaxone/Levaquin 10/18 24H INTERVAL SUMMARY * Awake, intubated on the Vent->s/p Intubation yesterday 10/19/16 afternoon -- for hypoxic respiratory failure on O2 via FM * Today TMax 99.1, WBC down to 14.2 from 18.7 * 10/17/16 CXR: New patchy consolidation in the left lower lung zone is concerning for infection or aspiration. * 10/20/16 CXR: IMPRESSION:Mild bibasilar atelectasis and small right pleural effusion, slightly increased. * Right post op TKR examined today with RN at bedside Physical examination: 86 yo F critically ill in the ICU HEENT Orally intubated -- stable on Vent CHEST: Equal chest rise bilaterally without dyspnea on observation CV: Radial pulse RRR ABD: Soft, nontender : (+)FC EXT: Warm, no cyanosis, Right knee DSG C/D/T SKIN: No rash, no diaphoresis -> See wound care notes/wound photos ID ASSESSMENT 86 yo F w/mild dementia, dysphagia, s/p recent R-TKR w/debility admit with: 1. Sepsis on admission w/Fevers 101.8, leukocytosis, lactic acidosis 2.9, acute hypoxic respiratory distress, acute encephalopathy=> IMPROVED * 10/13/16 BCx(-); 10/17/16 BCx(-) * 10/13/16 Urine Cx(-); 10/17/16 Urine Cx (-) * Afebrile * WBC down to 14.2 from 18.7 * Lactic acidosis resolved -> down to 1.4 10/18 from 2.9 10/13 2. Hypoxic respiratory failure -> Intubated 10/19/09 afternoon 3. Aspiration PNA * s/p recent 10/13/16 URI/Strep Pharyngitis w/ PO ABX 4. s/p recent R=TKR, with recent admission to rehab facility * RIGHT TKR surgical wound DSG changed today by myself with assistance of RN w/ photo of healing wound to chart * WOUND EVALUATION 10/20/16: Surgical wound is well-approximated w/stitches intact, mild pressure applied bilaterally to para-incisional wound without any drainage. No erythema. No evidence of cellulitis or edema at incision/jos- incisional site = NO evidence of cellulitis nor superficial wound infection. * Wound incision was cleansed with ChloraPrep including the jos-wound surrounding skin site -> ChloraPrep was allowed to air dry, followed by application of 2 non-adherent TELFA DSG pads which were then covered with clear DSG OpSite. * I recommended the nurses remove the EMILIANO wrap daily during bed bath and exam the TELFA DSG pads for accumulation of drainage, if/when TELFA pads are saturated w/moisture/fluid drainage -> then change the DSG per method as outlined above. No need for daily DSG changes as there is NO evidence of current R-Knee surround cellulitis, nor incisional dehiscence, nor incisional superficial infection. WOUND IS HEALING AND CLEAN. 5. Generalized weakness/deconditioning 6. Anemia, normocytic 7. Hypothyroid 8. Decubi + Wounds => Present on admission from SNF * Right lateral heel multiple bruises * Sacrococcyx stage 3 pressure injury/with incontinent associated dermatitis [id number] (on admission) w/Periwound maceration * Left anterior lower extremity (stoddard) partial thickness abrasion [id number] ( on admission) * Mid back stage 2 pressure injury [id number] (on admission) * Bilateral breasts folds and Bilateral groins moisture associated skin damage/ Partial thickness skin injuries * Left ischial stage 2 pressure injury in combination with moisture associated skin damage/ Partial thickness skin injury (-)MRSA Nares TOTAL ABX DAY #3 CURRENT ABX: DAY #3 => Zosyn + Vanco IV s/p Vanco x1 10/18 s/p Ceftriaxone/Levaquin 10/18 ID RECOMMENDATIONS 1. Continue current ABX 2. f/u on MICRO in process: Sputum sample -> In process ; Send wound Cx STG III sacrum 3. RIGHT TKR surgical wound DSG changed today w/photo of healing wound to chart * Surgical wound is well-approximated w/stitches intact, mild pressure applied bilaterally to para-incisional wound without any drainage. No erythema. No evidence of cellulitis or edema at incision/jos-incisional site = NO evidence of cellulitis nor superficial wound infection. R-TKR POST OP NURSING WOUND CARE RECOMMENDATIONS 1. DAILY INSPECTION OF THE WOUND: * Remove the EMILIANO wrap daily during bed bath and examine the TELFA DSG pads for accumulation of drainage. * NO need for daily DSG change unless TELFA pads are saturated.. * PRN R-TKR DSG CHANGE: If/when TELFA pads are saturated w/moisture/fluid drainage -> then change the DSG per method as outlined below. 2. PRN DSG Change Instructions: * Double glove & bring ClorPrep + 2 non-adherent TELFA pads + OpSite DSG cover to bedside. Open up all DSG on bedside table. * Double glove: Remove saturated Telfa DSG/OpSite=> then remove outer gloves that touched the present DSG and discard. * With clean pair of gloves => Swab the incision with ClorPrep, then swab the surrounding jos-incisional skin. * Allow ChlorPrep to air dry * Apply 2 layers non-adherent Telfa DSG to the incision and then apply OpSite cover to the Telfa DSG pads. 3. STITCHES MAY BE REMOVED by the RN at RN discretion future when: * The wound is no longer draining/wound is dry x several days, with evidence of complete healing, no evidence of dehiscence, or infection. * Apply ChlorPrep to the wound and allow to dry prior to removal of stitches, then follow DSG change instructions as above. Problems: Consultation Date/Type/Reason Admit Date/Time Oct 17, 2016 at 22:37 Initial Consult Date 10/18/16 Type of Consultation: ID Exam/Review of Systems Vital Signs Vitals Vital Signs Date Time Temp Pulse Resp B/P Pulse Ox O2 Delivery O2 Flow Rate FiO2 10/20/16 12:00 99.1 91 20 143/61 99 Mechanical Ventilator 10/20/16 11:05 60 10/20/16 01:00 15.0 Intake and Output 10/19/16 10/19/16 10/20/16 15:00 23:00 07:00 Intake Total 490 ml 210 ml 420 ml Output Total 535 ml 140 ml 500 ml Balance -45 ml 70 ml -80 ml Results Result Diagram: 10/20/16 0456 10/20/16 0456 Results 24 hrs Laboratory Tests Test 10/19/16 21:35 10/19/16 23:00 10/20/16 04:15 10/20/16 04:56 Blood Gas Specimen Source Blood arterial Blood arterial Blood arterial Arterial Blood Date Drawn 10/19/2016 9:35:58 PM 10/20/2016 12:00:54 AM 10/20/2016 4:06:01 AM Arterial Blood pH (Temp corrected) 7.340 L 7.448 7.479 H Arterial Blood pCO2 (Temp correct) 44.8 36.1 35.2 Arterial Blood pO2 (Temp corrected) 58.1 L 99.3 H 187.5 H Arterial Blood HCO3 23.6 24.4 25.6 Arterial Blood Base Excess -2.2 0.6 2.2 Arterial Blood Oxygen Saturation 88.6 L 97.4 98.9 Alpesh Test ACCEPTAB ACCEPTAB ACCEPTAB Arterial Blood Gas Puncture Site Right Radial Left Radial Right Radial Arterial Blood Carboxyhemoglobin 0.3 0.2 0.2 Arterial Blood Methemoglobin 0.2 0.2 0.2 Blood Gas A-a O2 Differential 610.1 H 577.6 H 490.3 H Oxyhemoglobin Percent 88.2 L 97.0 98.5 Total Hemoglobin 11.7 L 10.2 L 10.6 L Blood Gas Temperature 37.0 37.0 37.0 Blood Gas Actual Respiration Rate 30 15 Blood Gas Modality MASK - NRB MASK - NRB VENT - AC FiO2 100.0 100.0 100.0 Blood Gas Notified Whom Joselyn NÚÑEZ [facility] ARCHITECT Blood Gas Notified Time 10/19/2016 9:46:34 PM 10/20/2016 12:09:32 AM 10/20/2016 4:16:54 AM Blood Gas Respiration Rate 14.0 Blood Gas Tidal Volume 500.0 Blood Gas Low PEEP Setting 5.0 White Blood Count 14.2 #H Red Blood Count 3.02 L Hemoglobin 9.5 L Hematocrit 28.5 L Mean Corpuscular Volume 94.4 Mean Corpuscular Hemoglobin 31.5 Mean Corpuscular Hemoglobin Concent 33.3 Red Cell Distribution Width 13.9 Platelet Count 533 H Mean Platelet Volume 8.9 Neutrophils % 73.4 Lymphocytes % 15.7 Monocytes % 8.9 Eosinophils % 0.8 Basophils % 0.4 Nucleated Red Blood Cells % 0.0 Neutrophils # 10.5 H Lymphocytes # 2.2 Monocytes # 1.3 H Eosinophils # 0.1 Basophils # 0.1 Nucleated Red Blood Cells # 0.0 Sodium Level 143 Potassium Level 3.1 L Chloride Level 104 Carbon Dioxide Level 27 Anion Gap 15 Blood Urea Nitrogen 15 Creatinine 0.74 Glucose Level 110 Calcium Level 8.7 Phosphorus Level 2.5 Magnesium Level 2.0 Medications Medications Current Medications Miscellaneous Information This patient loaiza... PRN PRN XX WOUND CARE; Start at 02:00 Sodium Chloride 1,000 ml @ 70 mls/hr [id number] IV Last administered on 10:31; Admin Dose 70 MLS/HR; Start 10/18/16 at 02:30 Vancomycin HCl (Vancocin) 250 ml @ 125 mls/hr Q24H IVPB Last administered on 00:52; Admin Dose 125 MLS/HR; Start 10/19/16 at 01:00 Hydralazine HCl 10 mg 10 mg Q6H PRN IV SBP>160 Last administered on 10/20/16 06:40; Admin Dose 10 MG; Start 10/18/16 at 11:00 Piperacillin Sod/ Tazobactam Sod (Zosyn 3.375gm/ 100 ml (Pmx)) 100 ml @ 200 mls /hr Q8 IVPB Last administered on 10/20/16 06:03; Admin Dose 200 MLS/HR; Start 10/18/16 at 14:00 Nystatin (Nystatin Powder) 1 applic BID TOP Last administered on 10/20/16 09: 20; Admin Dose 1 APPLIC; Start 10/18/16 at 21:00 Enoxaparin Sodium 40 mg 40 mg DAILY SC Last administered on 10/20/16 09:21; Admin Dose 40 MG; Start 10/19/16 at 13:00 Midazolam HCl (Versed) 50 ml @ 1 mls/hr TITRATE IV ; Start 10/20/16 at 10:00 Miscellaneous Information VANCO TROUGH @ 0,000 ON... ONCE ONCE XX ; Start 01/27 at 00:00; Stop 10/21/16 at 00:01 Potassium Chloride (KCl 40 MEQ/250 ML NS) 250 ml @ 62.5 mls/hr ONCE ONCE IVPB Last administered on 10/20/16 12:28; Admin Dose 62.5 MLS/HR; Start 10/20/16 at 11:30; Stop 10/20/16 at 15:29 LUIS GRAYSON NP Oct 20, 2016 13:08
[2016-10-20] MEDS: MIDAZOLAM (DRIP) 50 mg/50 mL 50 ML IV SCH (15:15)
--- NOTE | 2016-10-20 17:43 | PN ---
Date/Time of Note Date/Time of Note DATE: 10/20/16 TIME: 17:39 Assessment/Plan VTE Prophylaxis VTE Prophylaxis Intervention: LMWH Lines/Catheters IV Catheter Type (from Nrs): Peripheral IV Urinary Cath still in place: Yes Reason Cath still needed: urinary retention Assessment/Plan Assessment/Plan #1 sepsis: Healthcare associated pneumonia versus aspiration pneumonia and urinary tract infection. Patient was recently in a rehab facility. Currently not in respiratory distress. Will treat right now with IV empiric antibiotics with vancomycin, Unasyn, and Levaquin. IVF , ID following, speech consultation # acute resp failure due to HCAP-intubated on ventilator #2 Dementia basleine #3 anemia: Normocytic anemia. At the current time we will continue to monitor this no signs of bleeding at this time. #4 hypothyroidism: Continue home medication #5 dysphagia: s/p dietary consult #6 H/o right knee replacement: #7 DVT and GI prophylaxis: lovenox , Protonix s/p Palliative care consutl, FULL CODE, Pulmonary has been following patient also Subjective 24 Hr Interval Summary Free Text/Dictation intubated for resp distress Exam/Review of Systems Vital Signs Vitals Vital Signs Date Time Temp Pulse Resp B/P Pulse Ox O2 Delivery O2 Flow Rate FiO2 10/20/16 16:00 84 10/20/16 16:00 99.0 14 140/70 100 Mechanical Ventilator 10/20/16 15:50 60 10/20/16 01:00 15.0 Intake and Output 10/19/16 10/19/16 10/20/16 15:00 23:00 07:00 Intake Total 490 ml 210 ml 420 ml Output Total 535 ml 140 ml 500 ml Balance -45 ml 70 ml -80 ml Exam HEENT: ET t ube, NG tube CHEST: Bilateral Corase BS CV: Radial pulse RRR ABD: Soft, nontender : Deferred EXT: Warm, no cyanosis, SKIN: No rash, no diaphoresis Results Result Diagram: 10/20/16 0456 10/20/16 0456 Results 24 hrs Laboratory Tests Test 10/19/16 21:35 10/19/16 23:00 10/20/16 04:15 10/20/16 04:56 Blood Gas Specimen Source Blood arterial Blood arterial Blood arterial Arterial Blood Date Drawn 10/19/2016 9:35:58 PM 10/20/2016 12:00:54 AM 10/20/2016 4:06:01 AM Arterial Blood pH (Temp corrected) 7.340 L 7.448 7.479 H Arterial Blood pCO2 (Temp correct) 44.8 36.1 35.2 Arterial Blood pO2 (Temp corrected) 58.1 L 99.3 H 187.5 H Arterial Blood HCO3 23.6 24.4 25.6 Arterial Blood Base Excess -2.2 0.6 2.2 Arterial Blood Oxygen Saturation 88.6 L 97.4 98.9 Alpesh Test ACCEPTAB ACCEPTAB ACCEPTAB Arterial Blood Gas Puncture Site Right Radial Left Radial Right Radial Arterial Blood Carboxyhemoglobin 0.3 0.2 0.2 Arterial Blood Methemoglobin 0.2 0.2 0.2 Blood Gas A-a O2 Differential 610.1 H 577.6 H 490.3 H Oxyhemoglobin Percent 88.2 L 97.0 98.5 Total Hemoglobin 11.7 L 10.2 L 10.6 L Blood Gas Temperature 37.0 37.0 37.0 Blood Gas Actual Respiration Rate 30 15 Blood Gas Modality MASK - NRB MASK - NRB VENT - AC FiO2 100.0 100.0 100.0 Blood Gas Notified Whom Joselyn HARVEYP Blood Gas Notified Time 10/19/2016 9:46:34 PM 10/20/2016 12:09:32 AM 10/20/2016 4:16:54 AM Blood Gas Respiration Rate 14.0 Blood Gas Tidal Volume 500.0 Blood Gas Low PEEP Setting 5.0 White Blood Count 14.2 #H Red Blood Count 3.02 L Hemoglobin 9.5 L Hematocrit 28.5 L Mean Corpuscular Volume 94.4 Mean Corpuscular Hemoglobin 31.5 Mean Corpuscular Hemoglobin Concent 33.3 Red Cell Distribution Width 13.9 Platelet Count 533 H Mean Platelet Volume 8.9 Neutrophils % 73.4 Lymphocytes % 15.7 Monocytes % 8.9 Eosinophils % 0.8 Basophils % 0.4 Nucleated Red Blood Cells % 0.0 Neutrophils # 10.5 H Lymphocytes # 2.2 Monocytes # 1.3 H Eosinophils # 0.1 Basophils # 0.1 Nucleated Red Blood Cells # 0.0 Sodium Level 143 Potassium Level 3.1 L Chloride Level 104 Carbon Dioxide Level 27 Anion Gap 15 Blood Urea Nitrogen 15 Creatinine 0.74 Glucose Level 110 Calcium Level 8.7 Phosphorus Level 2.5 Magnesium Level 2.0 Medications Medications Current Medications Miscellaneous Information This patient loaiza... PRN PRN XX WOUND CARE; Start at 02:00 Sodium Chloride 1,000 ml @ 70 mls/hr [id number] IV Last administered on 10:31; Admin Dose 70 MLS/HR; Start 10/18/16 at 02:30 Vancomycin HCl (Vancocin) 250 ml @ 125 mls/hr Q24H IVPB Last administered on 00:52; Admin Dose 125 MLS/HR; Start 10/19/16 at 01:00 Hydralazine HCl 10 mg 10 mg Q6H PRN IV SBP>160 Last administered on 10/20/16 06:40; Admin Dose 10 MG; Start 10/18/16 at 11:00 Piperacillin Sod/ Tazobactam Sod (Zosyn 3.375gm/ 100 ml (Pmx)) 100 ml @ 200 mls /hr Q8 IVPB Last administered on 10/20/16 14:55; Admin Dose 200 MLS/HR; Start 10/18/16 at 14:00 Nystatin (Nystatin Powder) 1 applic BID TOP Last administered on 10/20/16 09: 20; Admin Dose 1 APPLIC; Start 10/18/16 at 21:00 Enoxaparin Sodium 40 mg 40 mg DAILY SC Last administered on 10/20/16 09:21; Admin Dose 40 MG; Start 10/19/16 at 13:00 Midazolam HCl (Versed) 50 ml @ 1 mls/hr TITRATE IV Last administered on 15:15; Admin Dose 1 MLS/HR; Start 10/20/16 at 10:00 Miscellaneous Information (*Rx Drug Level Order Reminder*) VANCO TROUGH @ 0, 000 ON... ONCE ONCE XX ; Start 10/21/16 at 00:00; Stop 10/21/16 at 00:01 LORENZO BONNER MD Oct 20, 2016 17:42
[2016-10-21] VITALS (38 sets, daily range): BP systolic 96–170; BP diastolic 46–101; PULSE 72–94; RESP 12–26
[2016-10-21] MEDS: VANCOMYCIN 1 GM in NS 250 ML IVPB SCH (00:49)
[2016-10-21] MEDS: SOD CHLORIDE 0.9% 1,000 ML IV SCH ×2 (03:31→16:18)
[2016-10-21] MEDS: MIDAZOLAM (DRIP) 50 mg/50 mL 50 ML IV SCH (03:31)
[2016-10-21] MEDS: PIPER-TAZO 3.375 GM IV (PMX) 100 ML IVPB SCH ×3 (05:39→21:10)
[2016-10-21] MEDS: hydrALAzine 20 MG INJ IV PRN ×2 (05:40→16:02)
[2016-10-21 05:54] LABS: BASOPHIL # 0.1 10^3/ul (0.0-0.1); BASOPHILS % 0.4 % (0.0-2.0); EOSINOPHILS # 0.4 10^3/ul (0.0-0.5); EOSINOPHILS % 3.1 % (0.0-7.0); HEMATOCRIT 26.7 % (37.0-47.0); HEMOGLOBIN 8.8 g/dl (12.0-16.0); LYMPHOCYTES # 1.9 10^3/ul (0.8-2.9); LYMPHOCYTES % 14.9 % (15.0-51.0); MEAN CORPUSCULAR HEMOGLOBIN 31.1 pg (29.0-33.0); MEAN CORPUSCULAR VOLUME 94.3 fl (82.0-101.0); MEAN PLATELET VOLUME 9.1 fl (7.4-10.4); MONOCYTES % 8.2 % (0.0-11.0); NEUTROPHIL # 9.1 10^3/ul (1.6-7.5); NEUTROPHILS % 72.8 % (39.0-77.0); PLATELET COUNT 501 10^3/UL (140-415); RED BLOOD COUNT 2.83 10^6/ul (4.20-5.40); RED CELL DISTRIBUTION WIDTH 14.1 % (11.5-14.5); WHITE BLOOD COUNT 12.5 10^3/ul (4.8-10.8)
[2016-10-21 06:37] LABS: CALCIUM 8.4 mg/dl (8.4-10.2); CREATININE 0.67 mg/dl (0.44-1.00); MAGNESIUM 2.1 mg/dl (1.7-2.5); PHOSPHORUS 2.2 mg/dl (2.5-4.9)
[2016-10-21 07:38] LABS: AADO2 Arterial 151.4 mmHg (7.0-24.0); Allen Test ACCEPTAB; Arterial Base Excess -1.2 mmol/L (-3.0-3); Arterial COHb 0.2 % (0.0-3.0); Arterial Fraction of Oxyhgb 96.8 % (93.0-99.0); Arterial HCO3 21.2 mmol/L (22.0-26.0); Arterial MetHb 0.3 % (0.0-1.5); Arterial Total Hemglobin 9.6 g/dl (12.0-18.0); MODE VENT - AC
[2016-10-21] MEDS: IPRATROPIUM (HFA) 12.9 GM INHALER INH SCH ×3 (07:45→19:58)
[2016-10-21] MEDS: ALBUTEROL 18 GM INHALER INH SCH ×3 (07:46→19:57)
[2016-10-21] MEDS: NYSTATIN 30 GM POWDER BTL TOP SCH ×2 (08:28→21:10)
[2016-10-21] MEDS: BALSAM PERU/CASTOR OIL 60 GM TUBE TOP SCH (08:28)
[2016-10-21] MEDS: ENOXAPARIN 40 MG/0.4 ML SYG SC SCH (08:29)
--- NOTE | 2016-10-21 09:45 | RADRPT ---
PROCEDURE: Chest radiograph CLINICAL INDICATION: pna chf. TECHNIQUE: Single portable frontal view. COMPARISON: Radiograph 10/20/2016. FINDINGS: The endotracheal tube terminates about 3 cm above the ba. The enteric tube courses below the diaphragm below the field of view. Left pleural effusion with adjacent atelectasis. Bilateral hilar alveolar opacities. Increased lung vascular congestion which may represent pneumonia or pulmonary edema. Aortic atherosclerosis. The heart is not enlarged. No suspicious bone lesion. IMPRESSION: 1 Overall, slightly decreased aeration of the left lung compared to yesterday's examination. Small left pleural effusion and bilateral alveolar opacities which may represent pneumonia or pulmonary ed rose mary. 2. All support lines and tubes in appropriate position. RPTAT: PP Physician Eboni Date Time Electronically viewed and signed by Physician Eboni on 10/21/2016 09:45 LG/
[2016-10-21] MEDS: POTASSIUM CHLORIDE 50 ML IVPB PRN ×3 (10:16→12:43)
--- NOTE | 2016-10-21 12:40 | RADRPT ---
PROCEDURE: XR Abdomen 1 View. CLINICAL INDICATION: Status post nasogastric tube placement. TECHNIQUE: AP abdomen x-ray. COMPARISON: None. FINDINGS: Nasogastric tube has its distal end in the expected location of the stomach. Tip is located in the expected location of the distal stomach or proximal duodenum. A large amount of formed stool is seen in the right colon. No dilated loops of small bowel are observed. No organomegaly is identified. Mu ltiple phleboliths are seen in the pelvis. Scattered likely soft tissue calcifications are seen ove r the right lower quadrant. Degenerative changes are seen in the left hip and spine. Right hip rep lacement is observed. IMPRESSION: Nasogastric tube with its distal end in the expected location of the stomach. Large amount of formed stool in the right colon, possibly indicating constipation. Otherwise, nonspecific bowel gas pattern. If further characterization of the abdomen is needed CT should be considered. RPTAT: AA .Dex Campbell MD, MD Date Time Electronically viewed and signed by .Dex Campbell MD, on 10/21/2016 12:39 .P/
[2016-10-21] MEDS ORDERED: VANCOMYCIN 1 GM in NS 250 ML IVPB SCH (13:00)
[2016-10-21] MEDS: VANCOMYCIN 750 MG in SOD CHLORIDE 0.9% 150 ML IVPB SCH (13:23)
--- NOTE | 2016-10-21 14:12 | CONS ---
Date/Time of Note Date/Time of Note DATE: 10/21/16 TIME: 14:11 Consult Date/Type/Reason Admit Date/Time Oct 17, 2016 at 22:37 Initial Consult Date 10/20/16 Type of Consultation: Pulmonary Subjective Intubated sedated on mechanical ventilation. Grimaces to painful stimuli but not following commands. Objective Vital Signs Date Time Temp Pulse Resp B/P Pulse Ox O2 Delivery O2 Flow Rate FiO2 10/21/16 13:40 69 14 98 40 10/21/16 12:00 99.2 134/59 Mechanical Ventilator 10/20/16 01:00 15.0 Intake and Output 10/20/16 10/20/16 10/21/16 15:00 23:00 07:00 Intake Total 560 ml 679.5 ml 641.5 ml Output Total 370 ml 255 ml 280 ml Balance 190 ml 424.5 ml 361.5 ml Exam PHYSICAL EXAMINATION GENERAL: Elderly lady, intubated on mechanical ventilation, opens eyes and appears somewhat agitated. Orally intubated. VITAL SIGNS: see below. HEENT: Pupils equal, round, and reactive to light. CARDIAC: S1, S2, 1/6 systolic ejection murmur CHEST: Diminished air entry bilaterally. ABDOMEN: Mildly distended. Bowel sounds present no guarding or rebound EXTREMITIES: No cyanosis, clubbing edema +1 NEUROLOGIC: Generalized weakness Results/Medications Result Diagram: 10/21/1651110/21/16 0512 Results 24 hrs Laboratory Tests Test 10/21/16 00:02 10/21/16 05:12 10/21/16 07:00 Vancomycin Level Trough 7.3 L White Blood Count 12.5 H Red Blood Count 2.83 L Hemoglobin 8.8 L Hematocrit 26.7 L Mean Corpuscular Volume 94.3 Mean Corpuscular Hemoglobin 31.1 Mean Corpuscular Hemoglobin Concent 33.0 Red Cell Distribution Width 14.1 Platelet Count 501 H Mean Platelet Volume 9.1 Neutrophils % 72.8 Lymphocytes % 14.9 L Monocytes % 8.2 Eosinophils % 3.1 Basophils % 0.4 Nucleated Red Blood Cells % 0.0 Neutrophils # 9.1 H Lymphocytes # 1.9 Monocytes # 1.0 H Eosinophils # 0.4 Basophils # 0.1 Nucleated Red Blood Cells # 0.0 Sodium Level 145 H Potassium Level 3.0 L Chloride Level 110 Carbon Dioxide Level 23 Anion Gap 15 Blood Urea Nitrogen 17 Creatinine 0.67 Glucose Level 83 Calcium Level 8.4 Phosphorus Level 2.2 L Magnesium Level 2.1 Blood Gas Specimen Source Blood arterial Arterial Blood Date Drawn 10/21/2016 7:20:22 AM Arterial Blood pH (Temp corrected) 7.502 H Arterial Blood pCO2 (Temp correct) 27.7 L Arterial Blood pO2 (Temp corrected) 101.9 H Arterial Blood HCO3 21.2 L Arterial Blood Base Excess -1.2 Arterial Blood Oxygen Saturation 97.3 Alpesh Test ACCEPTAB Arterial Blood Gas Puncture Site Right Radial Arterial Blood Carboxyhemoglobin 0.2 Arterial Blood Methemoglobin 0.3 Blood Gas A-a O2 Differential 151.4 H Oxyhemoglobin Percent 96.8 Total Hemoglobin 9.6 L Blood Gas Temperature 37.0 Blood Gas Respiration Rate 14.0 Blood Gas Actual Respiration Rate 14 Blood Gas Modality VENT - AC FiO2 40.0 Blood Gas Tidal Volume 500.0 Blood Gas Low PEEP Setting 5.0 Blood Gas Notified Whom JLD Blood Gas Notified Time 10/21/2016 7:38:06 AM Medications Current Medications Miscellaneous Information This patient loaiza... PRN PRN XX WOUND CARE; Start at 02:00 Sodium Chloride (NS) 1,000 ml @ 70 mls/hr [id number] IV Last administered on 10/21 03:31; Admin Dose 70 MLS/HR; Start 10/18/16 at 02:30 Hydralazine HCl 10 mg 10 mg Q6H PRN IV SBP>160 Last administered on 10/21/16 05:40; Admin Dose 10 MG; Start 10/18/16 at 11:00 Piperacillin Sod/ Tazobactam Sod (Zosyn 3.375gm/ 100 ml (Pmx)) 100 ml @ 200 mls /hr Q8 IVPB Last administered on 10/21/16 05:39; Admin Dose 200 MLS/HR; Start 10/18/16 at 14:00 Nystatin (Nystatin Powder) 1 applic BID TOP Last administered on 10/21/16 08: 28; Admin Dose 1 APPLIC; Start 10/18/16 at 21:00 Enoxaparin Sodium 40 mg 40 mg DAILY SC Last administered on 10/21/16 08:29; Admin Dose 40 MG; Start 10/19/16 at 13:00 Midazolam HCl 50 ml @ 1 mls/hr TITRATE IV Last administered on 10/21/16 03:31 ; Admin Dose 4 MLS/HR; Start 10/20/16 at 10:00 Vancomycin HCl/ Sodium Chloride (Vancocin/NS) 150 ml @ 75 mls/hr Q12H IVPB Last administered on 10/21/16 13:23; Admin Dose 75 MLS/HR; Start 10/21/16 at 13 :00 Assessment/Plan Chief Complaint/Hosp Course Assessment 1. Hypoxemic respiratory failure 2. Possible aspiration pneumonia versus healthcare associated pneumonia 3. History of progressive dementia 4. History of recent right total knee replacement 5. Hypokalemia Plan 1. Continue mechanical ventilation decrease sedation CPAP trial today. 2. Continue broad-spectrum antibiotic coverage pending cultures 2. Start tube feeding 4. DVT and GI prophylaxis 5. Replace potassium Disposition Discussed with patient's daughter at bedside. Continue ICU care. Problems: NEELAM RAMIREZ MD, [facility] Oct 21, 2016 14:12
[2016-10-21] MEDS ORDERED: FENTAnyl (DRIP) 1000 mcg/100mL 100 ML IV SCH (14:30)
--- NOTE | 2016-10-21 16:25 | PN ---
Date/Time of Note Date/Time of Note DATE: 10/21/16 TIME: 16:23 Assessment/Plan VTE Prophylaxis VTE Prophylaxis Intervention: LMWH Lines/Catheters IV Catheter Type (from Nrs): Peripheral IV Urinary Cath still in place: Yes Reason Cath still needed: other (indicate) (Strict I/O, Intubated on ventilator ) Assessment/Plan Assessment/Plan #1 sepsis: Healthcare associated pneumonia versus aspiration pneumonia and urinary tract infection. Patient was recently in a rehab facility. Currently not in respiratory distress. Will treat right now with IV empiric antibiotics with vancomycin, Unasyn, and Levaquin. IVF , ID following, speech consultation # acute resp failure due to HCAP-intubated on ventilator #2 Dementia basleine #3 anemia: Normocytic anemia. At the current time we will continue to monitor this no signs of bleeding at this time. #4 hypothyroidism: Continue home medication #5 dysphagia: s/p dietary consult #6 H/o right knee replacement: #7 DVT and GI prophylaxis: lovenox , Protonix s/p Palliative care consutl, FULL CODE, Pulmonary has been following patient also Subjective 24 Hr Interval Summary Free Text/Dictation pt remains intubated, BP stable, Exam/Review of Systems Vital Signs Vitals Vital Signs Date Time Temp Pulse Resp B/P Pulse Ox O2 Delivery O2 Flow Rate FiO2 10/21/16 15:41 40 10/21/16 13:40 69 14 98 10/21/16 12:00 99.2 134/59 Mechanical Ventilator 10/20/16 01:00 15.0 Intake and Output 10/20/16 10/20/16 10/21/16 15:00 23:00 07:00 Intake Total 560 ml 679.5 ml 641.5 ml Output Total 370 ml 255 ml 280 ml Balance 190 ml 424.5 ml 361.5 ml Exam HEENT: ET t ube, NG tube CHEST: Bilateral Corase BS CV: Radial pulse RRR ABD: Soft, nontender : Deferred EXT: Warm, no cyanosis, SKIN: No rash, no diaphoresis Results Result Diagram: 10/21/1651110/21/16511 Results 24 hrs Laboratory Tests Test 10/21/16 00:02 10/21/16 05:12 10/21/16 07:00 Vancomycin Level Trough 7.3 L White Blood Count 12.5 H Red Blood Count 2.83 L Hemoglobin 8.8 L Hematocrit 26.7 L Mean Corpuscular Volume 94.3 Mean Corpuscular Hemoglobin 31.1 Mean Corpuscular Hemoglobin Concent 33.0 Red Cell Distribution Width 14.1 Platelet Count 501 H Mean Platelet Volume 9.1 Neutrophils % 72.8 Lymphocytes % 14.9 L Monocytes % 8.2 Eosinophils % 3.1 Basophils % 0.4 Nucleated Red Blood Cells % 0.0 Neutrophils # 9.1 H Lymphocytes # 1.9 Monocytes # 1.0 H Eosinophils # 0.4 Basophils # 0.1 Nucleated Red Blood Cells # 0.0 Sodium Level 145 H Potassium Level 3.0 L Chloride Level 110 Carbon Dioxide Level 23 Anion Gap 15 Blood Urea Nitrogen 17 Creatinine 0.67 Glucose Level 83 Calcium Level 8.4 Phosphorus Level 2.2 L Magnesium Level 2.1 Blood Gas Specimen Source Blood arterial Arterial Blood Date Drawn 10/21/2016 7:20:22 AM Arterial Blood pH (Temp corrected) 7.502 H Arterial Blood pCO2 (Temp correct) 27.7 L Arterial Blood pO2 (Temp corrected) 101.9 H Arterial Blood HCO3 21.2 L Arterial Blood Base Excess -1.2 Arterial Blood Oxygen Saturation 97.3 Alpesh Test ACCEPTAB Arterial Blood Gas Puncture Site Right Radial Arterial Blood Carboxyhemoglobin 0.2 Arterial Blood Methemoglobin 0.3 Blood Gas A-a O2 Differential 151.4 H Oxyhemoglobin Percent 96.8 Total Hemoglobin 9.6 L Blood Gas Temperature 37.0 Blood Gas Respiration Rate 14.0 Blood Gas Actual Respiration Rate 14 Blood Gas Modality VENT - AC FiO2 40.0 Blood Gas Tidal Volume 500.0 Blood Gas Low PEEP Setting 5.0 Blood Gas Notified Whom JLD Blood Gas Notified Time 10/21/2016 7:38:06 AM Medications Medications Current Medications Miscellaneous Information This patient loaiza... PRN PRN XX WOUND CARE; Start at 02:00 Sodium Chloride (NS) 1,000 ml @ 70 mls/hr [id number] IV Last administered on 10/21 03:31; Admin Dose 70 MLS/HR; Start 10/18/16 at 02:30 Hydralazine HCl 10 mg 10 mg Q6H PRN IV SBP>160 Last administered on 10/21/16 16:02; Admin Dose 10 MG; Start 10/18/16 at 11:00 Piperacillin Sod/ Tazobactam Sod (Zosyn 3.375gm/ 100 ml (Pmx)) 100 ml @ 200 mls /hr Q8 IVPB Last administered on 10/21/16 14:30; Admin Dose 200 MLS/HR; Start 10/18/16 at 14:00 Nystatin (Nystatin Powder) 1 applic BID TOP Last administered on 10/21/16 08: 28; Admin Dose 1 APPLIC; Start 10/18/16 at 21:00 Enoxaparin Sodium 40 mg 40 mg DAILY SC Last administered on 10/21/16 08:29; Admin Dose 40 MG; Start 10/19/16 at 13:00 Midazolam HCl 50 ml @ 1 mls/hr TITRATE IV Last administered on 10/21/16 03:31 ; Admin Dose 4 MLS/HR; Start 10/20/16 at 10:00 Vancomycin HCl 750 mg/Sodium Chloride 150 ml @ 75 mls/hr Q12H IVPB Last administered on 10/21/16 13:23; Admin Dose 75 MLS/HR; Start 10/21/16 at 13:00 Fentanyl (Sublimaze) 100 ml @ 2.5 mls/hr TITRATE IV ; Start 10/21/16 at 14:30 LORENZO BONNER MD Oct 21, 2016 16:24
[2016-10-21 18:04] LABS: Allen Test ACCEPTAB; Arterial Base Excess -3.3 mmol/L (-3.0-3); Arterial COHb 0.2 % (0.0-3.0); Arterial Fraction of Oxyhgb 97.5 % (93.0-99.0); Arterial HCO3 19.9 mmol/L (22.0-26.0); Arterial MetHb 0.3 % (0.0-1.5); Arterial Total Hemglobin 9.2 g/dl (12.0-18.0); Blood Gas PS 10; MODE VENT - CPAP
--- NOTE | 2016-10-21 21:01 | CONS ---
Date/Time of Note Date/Time of Note DATE: 10/21/16 TIME: 20:31 Assessment/Plan Assessment/Plan Chief Complaint/Hosp Course ID PROGRESS NOTE TOTAL ABX DAY #4 CURRENT ABX: DAY #4 => Zosyn + Vanco IV s/p Vanco x1 10/18 s/p Ceftriaxone/Levaquin 10/18 24H INTERVAL SUMMARY * OFF sedation, awake, Awake, intubated on the Vent->s/p Intubation yesterday 10/19/16 * No fevers, WBC normalized * 10/21 CXR: 1 Overall, slightly decreased aeration of the left lung compared to yesterday's examination. Small left pleural effusion and bilateral alveolar opacities which may represent pneumonia or pulmonary edema. * 10/17/16 CXR: New patchy consolidation in the left lower lung zone is concerning for infection or aspiration. * 10/20/16 CXR: IMPRESSION:Mild bibasilar atelectasis and small right pleural effusion, slightly increased. * Right post op TKR examined today with RN at bedside Physical examination: 86 yo F critically ill in the ICU HEENT Orally intubated -- stable on Vent CHEST: Equal chest rise bilaterally without dyspnea on observation CV: Radial pulse RRR ABD: Soft, nontender : (+)FC EXT: Warm, no cyanosis, Right knee DSG C/D/T SKIN: No rash, no diaphoresis -> See wound care notes/wound photos ID ASSESSMENT 86 yo F w/mild dementia, dysphagia, s/p recent R-TKR w/debility admit with: 1. Sepsis on admission w/Fevers 101.8, leukocytosis, lactic acidosis 2.9, acute hypoxic respiratory distress, acute encephalopathy=> IMPROVED * 10/13/16 BCx(-); 10/17/16 BCx(-) * 10/13/16 Urine Cx(-); 10/17/16 Urine Cx (-) * Afebrile * WBC down to 14.2 from 18.7 * Lactic acidosis resolved -> down to 1.4 10/18 from 2.9 10/13 2. Hypoxic respiratory failure -> Intubated 10/19/09 afternoon 3. Aspiration PNA * s/p recent 10/13/16 URI/Strep Pharyngitis w/ PO ABX 4. s/p recent R=TKR, with recent admission to rehab facility * RIGHT TKR surgical wound DSG changed today by myself with assistance of RN w/ photo of healing wound to chart * WOUND EVALUATION 10/20/16: Surgical wound is well-approximated w/stitches intact, mild pressure applied bilaterally to para-incisional wound without any drainage. No erythema. No evidence of cellulitis or edema at incision/jos- incisional site = NO evidence of cellulitis nor superficial wound infection. * Wound incision was cleansed with ChloraPrep including the jos-wound surrounding skin site -> ChloraPrep was allowed to air dry, followed by application of 2 non-adherent TELFA DSG pads which were then covered with clear DSG OpSite. * I recommended the nurses remove the EMILIANO wrap daily during bed bath and exam the TELFA DSG pads for accumulation of drainage, if/when TELFA pads are saturated w/moisture/fluid drainage -> then change the DSG per method as outlined above. No need for daily DSG changes as there is NO evidence of current R-Knee surround cellulitis, nor incisional dehiscence, nor incisional superficial infection. WOUND IS HEALING AND CLEAN. 5. Generalized weakness/deconditioning 6. Anemia, normocytic 7. Hypothyroid 8. Decubi + Wounds => Present on admission from SNF * Right lateral heel multiple bruises * Sacrococcyx stage 3 pressure injury/with incontinent associated dermatitis [id number] (on admission) w/Periwound maceration * Left anterior lower extremity (stoddard) partial thickness abrasion [id number] ( on admission) * Mid back stage 2 pressure injury [id number] (on admission) * Bilateral breasts folds and Bilateral groins moisture associated skin damage/ Partial thickness skin injuries * Left ischial stage 2 pressure injury in combination with moisture associated skin damage/ Partial thickness skin injury (-)MRSA Nares TOTAL ABX DAY #3 CURRENT ABX: DAY #3 => Zosyn + Vanco IV s/p Vanco x1 10/18 s/p Ceftriaxone/Levaquin 10/18 ID RECOMMENDATIONS 1. Continue current ABX 2. f/u on MICRO in process: Sputum sample -> In process ; Send wound Cx STG III sacrum 3. RIGHT TKR surgical wound DSG changed today w/photo of healing wound to chart * Surgical wound is well-approximated w/stitches intact, mild pressure applied bilaterally to para-incisional wound without any drainage. No erythema. No evidence of cellulitis or edema at incision/jos-incisional site = NO evidence of cellulitis nor superficial wound infection. R-TKR POST OP NURSING WOUND CARE RECOMMENDATIONS 1. DAILY INSPECTION OF THE WOUND: * Remove the EMILIANO wrap daily during bed bath and examine the TELFA DSG pads for accumulation of drainage. * NO need for daily DSG change unless TELFA pads are saturated.. * PRN R-TKR DSG CHANGE: If/when TELFA pads are saturated w/moisture/fluid drainage -> then change the DSG per method as outlined below. 2. PRN DSG Change Instructions: * Double glove & bring ClorPrep + 2 non-adherent TELFA pads + OpSite DSG cover to bedside. Open up all DSG on bedside table. * Double glove: Remove saturated Telfa DSG/OpSite=> then remove outer gloves that touched the present DSG and discard. * With clean pair of gloves => Swab the incision with ClorPrep, then swab the surrounding jos-incisional skin. * Allow ChlorPrep to air dry * Apply 2 layers non-adherent Telfa DSG to the incision and then apply OpSite cover to the Telfa DSG pads. 3. STITCHES MAY BE REMOVED by the RN at RN discretion future when: * The wound is no longer draining/wound is dry x several days, with evidence of complete healing, no evidence of dehiscence, or infection. * Apply ChlorPrep to the wound and allow to dry prior to removal of stitches, then follow DSG change instructions as above. Problems: Consultation Date/Type/Reason Admit Date/Time Oct 17, 2016 at 22:37 Initial Consult Date 10/18/16 Type of Consultation: ID Exam/Review of Systems Vital Signs Vitals Vital Signs Date Time Temp Pulse Resp B/P Pulse Ox O2 Delivery O2 Flow Rate FiO2 10/21/16 18:00 86 16 105/54 98 Mechanical Ventilator 10/21/16 17:49 40 10/21/16 16:00 98.7 10/20/16 01:00 15.0 Intake and Output 10/20/16 10/20/16 10/21/16 15:00 23:00 07:00 Intake Total 560 ml 679.5 ml 641.5 ml Output Total 370 ml 255 ml 280 ml Balance 190 ml 424.5 ml 361.5 ml Results Result Diagram: 10/21/16 0512 10/21/16 0512 Results 24 hrs Laboratory Tests Test 10/21/16 00:02 10/21/16 05:12 10/21/16 07:00 10/21/16 17:30 Vancomycin Level Trough 7.3 L White Blood Count 12.5 H Red Blood Count 2.83 L Hemoglobin 8.8 L Hematocrit 26.7 L Mean Corpuscular Volume 94.3 Mean Corpuscular Hemoglobin 31.1 Mean Corpuscular Hemoglobin Concent 33.0 Red Cell Distribution Width 14.1 Platelet Count 501 H Mean Platelet Volume 9.1 Neutrophils % 72.8 Lymphocytes % 14.9 L Monocytes % 8.2 Eosinophils % 3.1 Basophils % 0.4 Nucleated Red Blood Cells % 0.0 Neutrophils # 9.1 H Lymphocytes # 1.9 Monocytes # 1.0 H Eosinophils # 0.4 Basophils # 0.1 Nucleated Red Blood Cells # 0.0 Sodium Level 145 H Potassium Level 3.0 L Chloride Level 110 Carbon Dioxide Level 23 Anion Gap 15 Blood Urea Nitrogen 17 Creatinine 0.67 Glucose Level 83 Calcium Level 8.4 Phosphorus Level 2.2 L Magnesium Level 2.1 Blood Gas Specimen Source Blood arterial Blood arterial Arterial Blood Date Drawn 10/21/2016 7:20:22 AM 10/21/2016 5:51:48 PM Arterial Blood pH (Temp corrected) 7.502 H 7.452 H Arterial Blood pCO2 (Temp correct) 27.7 L 29.2 L Arterial Blood pO2 (Temp corrected) 101.9 H 118.6 H Arterial Blood HCO3 21.2 L 19.9 L Arterial Blood Base Excess -1.2 -3.3 L Arterial Blood Oxygen Saturation 97.3 98.0 Alpesh Test ACCEPTAB ACCEPTAB Arterial Blood Gas Puncture Site Right Radial Right Radial Arterial Blood Carboxyhemoglobin 0.2 0.2 Arterial Blood Methemoglobin 0.3 0.3 Blood Gas A-a O2 Differential 151.4 H 133.0 H Oxyhemoglobin Percent 96.8 97.5 Total Hemoglobin 9.6 L 9.2 L Blood Gas Temperature 37.0 37.0 Blood Gas Respiration Rate 14.0 Blood Gas Actual Respiration Rate 14 17 Blood Gas Modality VENT - AC VENT - CPAP FiO2 40.0 40.0 Blood Gas Tidal Volume 500.0 Blood Gas Low PEEP Setting 5.0 5.0 Blood Gas Notified Whom MAREND Blood Gas Notified Time 10/21/2016 7:38:06 AM 10/21/2016 6:04:27 PM Blood Gas Pressure Support 10 Medications Medications Current Medications Miscellaneous Information This patient loaiza... PRN PRN XX WOUND CARE; Start at 02:00 Sodium Chloride (NS) 1,000 ml @ 70 mls/hr [id number] IV Last administered on 10/21 03:31; Admin Dose 70 MLS/HR; Start 10/18/16 at 02:30 Hydralazine HCl 10 mg 10 mg Q6H PRN IV SBP>160 Last administered on 10/21/16 16:02; Admin Dose 10 MG; Start 10/18/16 at 11:00 Piperacillin Sod/ Tazobactam Sod (Zosyn 3.375gm/ 100 ml (Pmx)) 100 ml @ 200 mls /hr Q8 IVPB Last administered on 10/21/16 14:30; Admin Dose 200 MLS/HR; Start 10/18/16 at 14:00 Nystatin (Nystatin Powder) 1 applic BID TOP Last administered on 10/21/16 08: 28; Admin Dose 1 APPLIC; Start 10/18/16 at 21:00 Enoxaparin Sodium 40 mg 40 mg DAILY SC Last administered on 10/21/16 08:29; Admin Dose 40 MG; Start 10/19/16 at 13:00 Midazolam HCl 50 ml @ 1 mls/hr TITRATE IV Last administered on 10/21/16 03:31 ; Admin Dose 4 MLS/HR; Start 10/20/16 at 10:00 Vancomycin HCl 750 mg/Sodium Chloride 150 ml @ 75 mls/hr Q12H IVPB Last administered on 10/21/16 13:23; Admin Dose 75 MLS/HR; Start 10/21/16 at 13:00 Fentanyl (Sublimaze) 100 ml @ 2.5 mls/hr TITRATE IV ; Start 10/21/16 at 14:30 LUIS GRAYSON NP Oct 21, 2016 20:41
[2016-10-22] VITALS (38 sets, daily range): BP systolic 107–169; BP diastolic 50–111; PULSE 86–112; RESP 8–27
[2016-10-22] MEDS: VANCOMYCIN 750 MG in SOD CHLORIDE 0.9% 150 ML IVPB SCH ×2 (01:08→12:35)
[2016-10-22 05:01] LABS: BASOPHIL # 0.1 10^3/ul (0.0-0.1); BASOPHILS % 0.5 % (0.0-2.0); EOSINOPHILS # 0.2 10^3/ul (0.0-0.5); EOSINOPHILS % 1.8 % (0.0-7.0); HEMATOCRIT 28.2 % (37.0-47.0); HEMOGLOBIN 9.3 g/dl (12.0-16.0); LYMPHOCYTES # 1.9 10^3/ul (0.8-2.9); LYMPHOCYTES % 15.5 % (15.0-51.0); MEAN CORPUSCULAR HEMOGLOBIN 30.8 pg (29.0-33.0); MEAN CORPUSCULAR VOLUME 93.4 fl (82.0-101.0); MEAN PLATELET VOLUME 9.3 fl (7.4-10.4); MONOCYTE # 1.1 10^3/ul (0.3-0.9); MONOCYTES % 8.8 % (0.0-11.0); NEUTROPHIL # 8.6 10^3/ul (1.6-7.5); NEUTROPHILS % 72.6 % (39.0-77.0); PLATELET COUNT 542 10^3/UL (140-415); RED BLOOD COUNT 3.02 10^6/ul (4.20-5.40); RED CELL DISTRIBUTION WIDTH 14.3 % (11.5-14.5); WHITE BLOOD COUNT 11.9 10^3/ul (4.8-10.8)
[2016-10-22 05:21] LABS: CALCIUM 8.7 mg/dl (8.4-10.2); CREATININE 0.72 mg/dl (0.44-1.00); PHOSPHORUS 2.4 mg/dl (2.5-4.9)
[2016-10-22 05:26] LABS: POTASSIUM 2.9 mmol/L (3.5-5.1)
[2016-10-22] MEDS: PIPER-TAZO 3.375 GM IV (PMX) 100 ML IVPB SCH ×3 (05:37→21:21)
[2016-10-22] MEDS: POTASSIUM CHLORIDE 50 ML IVPB PRN ×3 (05:38→07:27)
[2016-10-22] MEDS: SOD CHLORIDE 0.9% 1,000 ML IV SCH ×2 (05:38→17:56)
[2016-10-22] MEDS ORDERED: POTASSIUM CHLORIDE 250 ML IVPB ONE (06:00)
[2016-10-22] MEDS: IPRATROPIUM (HFA) 12.9 GM INHALER INH SCH (07:52)
[2016-10-22] MEDS: ALBUTEROL 18 GM INHALER INH SCH (07:53)
[2016-10-22] MEDS: BALSAM PERU/CASTOR OIL 60 GM TUBE TOP SCH (08:30)
[2016-10-22] MEDS: NYSTATIN 30 GM POWDER BTL TOP SCH ×2 (08:31→21:21)
[2016-10-22] MEDS: ENOXAPARIN 40 MG/0.4 ML SYG SC SCH (08:33)
[2016-10-22] MEDS: hydrALAzine 20 MG INJ IV PRN (09:05)
--- NOTE | 2016-10-22 10:30 | PN ---
Date/Time of Note Date/Time of Note DATE: 10/22/16 TIME: 10:27 Assessment/Plan VTE Prophylaxis VTE Prophylaxis Intervention: LMWH Lines/Catheters IV Catheter Type (from Nrs): Peripheral IV Urinary Cath still in place: Yes Reason Cath still needed: urinary retention, other (indicate) (intubated on ventilator ) Assessment/Plan Assessment/Plan #1 sepsis: Healthcare associated pneumonia versus aspiration pneumonia and urinary tract infection- on IV abx # acute resp failure due to HCAP-intubated on ventilator , Pulmonary has been following patient #2 Dementia - baseline, Currently sedated because pt is intubated #3 anemia: Normocytic anemia. At the current time we will continue to monitor this no signs of bleeding at this time. #4 hypothyroidism: Continue home medication #5 dysphagia: s/p dietary consult #6 H/o right knee replacement: #7 DVT and GI prophylaxis: lovenox , Protonix s/p Palliative care consutl, FULL CODE, Pulmonary has been following patient also Subjective 24 Hr Interval Summary Free Text/Dictation Remains intubated ,BP stable, afebrile Exam/Review of Systems Vital Signs Vitals Vital Signs Date Time Temp Pulse Resp B/P Pulse Ox O2 Delivery O2 Flow Rate FiO2 10/22/16 09:30 92 22 158/71 94 Mechanical Ventilator 10/22/16 08:00 30 10/22/16 08:00 100.0 10/20/16 01:00 15.0 Intake and Output 10/21/16 10/21/16 10/22/16 15:00 23:00 07:00 Intake Total 581 ml 340 ml 1420 ml Output Total 275 ml 270 ml 180 ml Balance 306 ml 70 ml 1240 ml Exam Constitutional: non-verbal, other (Intubated, sedated on ventilator ) Head: normocephalic Eyes: nl conjunctiva ENMT: intubated, other (ET tube in place , NG tube) Respiratory: congested cough, other (Bilateral coarse BS+) Cardiovascular: nl pulses, regular rate and rhythm Gastrointestinal: non-tender, soft Neurological: other (sedated unable to assess due to Sedation ) Results Result Diagram: 10/22/16 0443 10/22/16 0443 Results 24 hrs Laboratory Tests Test 10/21/16 17:30 10/22/16 04:43 Blood Gas Specimen Source Blood arterial Arterial Blood Date Drawn 10/21/2016 5:51:48 PM Arterial Blood pH (Temp corrected) 7.452 H Arterial Blood pCO2 (Temp correct) 29.2 L Arterial Blood pO2 (Temp corrected) 118.6 H Arterial Blood HCO3 19.9 L Arterial Blood Base Excess -3.3 L Arterial Blood Oxygen Saturation 98.0 Alpesh Test ACCEPTAB Arterial Blood Gas Puncture Site Right Radial Arterial Blood Carboxyhemoglobin 0.2 Arterial Blood Methemoglobin 0.3 Blood Gas A-a O2 Differential 133.0 H Oxyhemoglobin Percent 97.5 Total Hemoglobin 9.2 L Blood Gas Temperature 37.0 Blood Gas Actual Respiration Rate 17 Blood Gas Modality VENT - CPAP FiO2 40.0 Blood Gas Low PEEP Setting 5.0 Blood Gas Pressure Support 10 Blood Gas Notified Whom ab Blood Gas Notified Time 10/21/2016 6:04:27 PM White Blood Count 11.9 H Red Blood Count 3.02 L Hemoglobin 9.3 L Hematocrit 28.2 L Mean Corpuscular Volume 93.4 Mean Corpuscular Hemoglobin 30.8 Mean Corpuscular Hemoglobin Concent 33.0 Red Cell Distribution Width 14.3 Platelet Count 542 H Mean Platelet Volume 9.3 Neutrophils % 72.6 Lymphocytes % 15.5 Monocytes % 8.8 Eosinophils % 1.8 Basophils % 0.5 Nucleated Red Blood Cells % 0.0 Neutrophils # 8.6 H Lymphocytes # 1.9 Monocytes # 1.1 H Eosinophils # 0.2 Basophils # 0.1 Nucleated Red Blood Cells # 0.0 Sodium Level 142 Potassium Level 2.9 *L Chloride Level 112 H Carbon Dioxide Level 22 Anion Gap 11 Blood Urea Nitrogen 19 Creatinine 0.72 Glucose Level 145 # Calcium Level 8.7 Phosphorus Level 2.4 L Magnesium Level 2.0 Medications Medications Current Medications Miscellaneous Information This patient loaiza... PRN PRN XX WOUND CARE; Start at 02:00 Sodium Chloride (NS) 1,000 ml @ 70 mls/hr [id number] IV Last administered on 10/22 05:38; Admin Dose 70 MLS/HR; Start 10/18/16 at 02:30 Hydralazine HCl 10 mg 10 mg Q6H PRN IV SBP>160 Last administered on 10/22/16 09:05; Admin Dose 10 MG; Start 10/18/16 at 11:00 Piperacillin Sod/ Tazobactam Sod (Zosyn 3.375gm/ 100 ml (Pmx)) 100 ml @ 200 mls /hr Q8 IVPB Last administered on 10/22/16 05:37; Admin Dose 200 MLS/HR; Start 10/18/16 at 14:00 Nystatin (Nystatin Powder) 1 applic BID TOP Last administered on 10/22/16 08: 31; Admin Dose 1 APPLIC; Start 10/18/16 at 21:00 Enoxaparin Sodium 40 mg 40 mg DAILY SC Last administered on 10/22/16 08:33; Admin Dose 40 MG; Start 10/19/16 at 13:00 Midazolam HCl 50 ml @ 1 mls/hr TITRATE IV Last administered on 10/21/16 03:31 ; Admin Dose 4 MLS/HR; Start 10/20/16 at 10:00 Vancomycin HCl 750 mg/Sodium Chloride 150 ml @ 75 mls/hr Q12H IVPB Last administered on 10/22/16 01:08; Admin Dose 75 MLS/HR; Start 10/21/16 at 13:00 Fentanyl (Sublimaze) 100 ml @ 2.5 mls/hr TITRATE IV ; Start 10/21/16 at 14:30 LORENZO BONNER MD Oct 22, 2016 10:30
[2016-10-22] MEDS ORDERED: IPRATROPIUM (NEB) 0.5 MG/2.5 ML AMP ONE (11:10)
[2016-10-22] MEDS ORDERED: ALBUTEROL 0.5% (NEB) 2.5 MG/0.5 ML AMP ONE (11:11)
--- NOTE | 2016-10-22 12:13 | CONS ---
Date/Time of Note Date/Time of Note DATE: 10/22/16 TIME: 12:11 Consult Date/Type/Reason Admit Date/Time Oct 17, 2016 at 22:37 Initial Consult Date 10/20/16 Type of Consultation: Pulmonary Subjective Patient opens eyes but not consistently following commands. Remains hemodynamically stable minimal tracheal secretions. Tolerating CPAP trial well. Objective Vital Signs Date Time Temp Pulse Resp B/P Pulse Ox O2 Delivery O2 Flow Rate FiO2 10/22/16 11:23 6.0 10/22/16 09:30 92 22 158/71 94 Mechanical Ventilator 10/22/16 08:00 30 10/22/16 08:00 100.0 Intake and Output 10/21/16 10/21/16 10/22/16 15:00 23:00 07:00 Intake Total 581 ml 340 ml 1420 ml Output Total 275 ml 270 ml 180 ml Balance 306 ml 70 ml 1240 ml Exam PHYSICAL EXAMINATION GENERAL: Elderly lady, intubated on mechanical ventilation, opens eyes and appears somewhat agitated. Orally intubated. VITAL SIGNS: see below. HEENT: Pupils equal, round, and reactive to light. CARDIAC: S1, S2, 1/6 systolic ejection murmur CHEST: Diminished air entry bilaterally. ABDOMEN: Mildly distended. Bowel sounds present no guarding or rebound EXTREMITIES: No cyanosis, clubbing edema +1 NEUROLOGIC: Generalized weakness Results/Medications Result Diagram: 10/22/16 0443 10/22/16 0443 Results 24 hrs Laboratory Tests Test 10/21/16 17:30 10/22/16 04:43 Blood Gas Specimen Source Blood arterial Arterial Blood Date Drawn 10/21/2016 5:51:48 PM Arterial Blood pH (Temp corrected) 7.452 H Arterial Blood pCO2 (Temp correct) 29.2 L Arterial Blood pO2 (Temp corrected) 118.6 H Arterial Blood HCO3 19.9 L Arterial Blood Base Excess -3.3 L Arterial Blood Oxygen Saturation 98.0 Alpesh Test ACCEPTAB Arterial Blood Gas Puncture Site Right Radial Arterial Blood Carboxyhemoglobin 0.2 Arterial Blood Methemoglobin 0.3 Blood Gas A-a O2 Differential 133.0 H Oxyhemoglobin Percent 97.5 Total Hemoglobin 9.2 L Blood Gas Temperature 37.0 Blood Gas Actual Respiration Rate 17 Blood Gas Modality VENT - CPAP FiO2 40.0 Blood Gas Low PEEP Setting 5.0 Blood Gas Pressure Support 10 Blood Gas Notified Whom ab Blood Gas Notified Time 10/21/2016 6:04:27 PM White Blood Count 11.9 H Red Blood Count 3.02 L Hemoglobin 9.3 L Hematocrit 28.2 L Mean Corpuscular Volume 93.4 Mean Corpuscular Hemoglobin 30.8 Mean Corpuscular Hemoglobin Concent 33.0 Red Cell Distribution Width 14.3 Platelet Count 542 H Mean Platelet Volume 9.3 Neutrophils % 72.6 Lymphocytes % 15.5 Monocytes % 8.8 Eosinophils % 1.8 Basophils % 0.5 Nucleated Red Blood Cells % 0.0 Neutrophils # 8.6 H Lymphocytes # 1.9 Monocytes # 1.1 H Eosinophils # 0.2 Basophils # 0.1 Nucleated Red Blood Cells # 0.0 Sodium Level 142 Potassium Level 2.9 *L Chloride Level 112 H Carbon Dioxide Level 22 Anion Gap 11 Blood Urea Nitrogen 19 Creatinine 0.72 Glucose Level 145 # Calcium Level 8.7 Phosphorus Level 2.4 L Magnesium Level 2.0 Medications Current Medications Miscellaneous Information This patient loaiza... PRN PRN XX WOUND CARE; Start at 02:00 Sodium Chloride (NS) 1,000 ml @ 70 mls/hr [id number] IV Last administered on 10/22 05:38; Admin Dose 70 MLS/HR; Start 10/18/16 at 02:30 Hydralazine HCl 10 mg 10 mg Q6H PRN IV SBP>160 Last administered on 10/22/16 09:05; Admin Dose 10 MG; Start 10/18/16 at 11:00 Piperacillin Sod/ Tazobactam Sod (Zosyn 3.375gm/ 100 ml (Pmx)) 100 ml @ 200 mls /hr Q8 IVPB Last administered on 10/22/16 05:37; Admin Dose 200 MLS/HR; Start 10/18/16 at 14:00 Nystatin (Nystatin Powder) 1 applic BID TOP Last administered on 10/22/16 08: 31; Admin Dose 1 APPLIC; Start 10/18/16 at 21:00 Enoxaparin Sodium 40 mg 40 mg DAILY SC Last administered on 10/22/16 08:33; Admin Dose 40 MG; Start 10/19/16 at 13:00 Midazolam HCl 50 ml @ 1 mls/hr TITRATE IV Last administered on 10/21/16 03:31 ; Admin Dose 4 MLS/HR; Start 10/20/16 at 10:00 Vancomycin HCl 750 mg/Sodium Chloride 150 ml @ 75 mls/hr Q12H IVPB Last administered on 10/22/16 01:08; Admin Dose 75 MLS/HR; Start 10/21/16 at 13:00 Fentanyl (Sublimaze) 100 ml @ 2.5 mls/hr TITRATE IV ; Start 10/21/16 at 14:30 Miscellaneous Information (*Rx Drug Level Order Reminder*) VANCOMYCIN TROUGH AT 0000 ONCE ONCE XX ; Start 10/23/16 at 00:00; Stop 10/23/16 at 00:01 Assessment/Plan Chief Complaint/Hosp Course Assessment 1. Hypoxemic respiratory failure 2. Possible aspiration pneumonia versus healthcare associated pneumonia 3. History of progressive dementia 4. History of recent right total knee replacement 5. Hypokalemia Plan 1. Stable CPAP trial this morning, will extubate. Will need continued aspiration precautions, continue pulmonary toilet supplemental O2. Her requested family reintubation if necessary. 2. Continue broad-spectrum antibiotic coverage 2. Speech therapy evaluation. 4. DVT and GI prophylaxis 5. Replace potassium 6. Palliative care recommendations Disposition Continue ICU care Critical care time 40 minutes. Problems: NE[facility] RAMIREZ [facility], [facility] Oct 22, 2016 12:13
[2016-10-22] MEDS ORDERED: FUROSEMIDE 40 MG INJ IV ONE (12:30)
[2016-10-22] MEDS: ACETAMINOPHEN 650MG/20.3ML CUP NGT PRN ×2 (12:34→17:14)
[2016-10-22] MEDS: ALBUTEROL/IPRATROPIUM (NEB) 3 ML AMP HHN SCH ×3 (13:00→20:00)
--- NOTE | 2016-10-22 14:39 | RADRPT ---
PROCEDURE: XR Chest. CLINICAL INDICATION: Chest pain TECHNIQUE: AP view of the chest was performed. COMPARISON: 10/21/2016. FINDINGS: The endotracheal tube tip is above the ba and a nasogastric tube courses below the left hemidiap hragm. The cardiac silhouette is within normal limits. There are aortic atherosclerotic calcifications. The right lung field is clear. There is left lower lung airspace disease with associated small pleural effusion. There are senescent changes of the osseous structures. The osseous structures are osteopenic IMPRESSION: There is left lower lung airspace disease with associated small pleural effusion. Supportive tubes and lines remain unchanged Aortic atherosclerosis is present. RPTAT: QQ .Gume Esposito MD, Date Time Electronically viewed and signed by .Gume Esposito MD, MD on 10/22/2016 14:38 .M/
--- NOTE | 2016-10-22 15:29 | PN ---
DATE: 10/22/2016 SUBJECTIVE DATA: No events overnight. The patient is on CPAP, looks comfortable. T-max currently 100. Heart rate 92, respirations 22, blood pressure 158/71, saturation 94 on vent. WBC 11.9, hemoglobin and hematocrit 9.3 and 28.2, platelets 542, no shift. BUN 19, creatinine 0.72. Microbiology: Blood cultures and urine cultures since admission negative. Sputum culture growing mold. Indwelling's: Endotracheal tube, NG tube, Robertson. Antimicrobials: Vancomycin, Zosyn. OBJECTIVE DATA: GENERAL: Well-developed, fragile, elderly woman, who looks comfortable on vent. HEENT: Head atraumatic, normocephalic. Sclera anicteric. Buccal mucosa dry. NECK: Supple. CHEST: Chest rise symmetrical. Breath sounds diminished at the bases. HEART: S1, S2. ABDOMEN: Soft. Bowel sounds present. EXTREMITIES: Without cyanosis. ASSESSMENT: 1. Acute respiratory failure, tolerate CPAP. 2. Healthcare associated pneumonia, possibly aspiration type. 3. Resolving sepsis. 4. History of recent right total knee replacement with no evidence of cellulitis or superficial wound infection. 5. Anemia. 6. Chronic decubiti. PLAN: We are going to add Vfend to the regimen to cover mold that grows in her sputum, which could be colonization and await for final identification of the organism. Continue vancomycin, Zosyn, continue weaning trial as per pulmonary. Follow recommendations of consultants. Dictated By: Mandi Hernandez NP /ada/rossana /Document#: [id number]
[2016-10-22] MEDS: VORICONAZOLE 200 MG TAB PO SCH (21:24)
[2016-10-23] VITALS (24 sets, daily range): BP systolic 108–169; BP diastolic 47–88; PULSE 85–106; RESP 18–31
[2016-10-23 01:49] LABS: BASOPHIL # 0.1 10^3/ul (0.0-0.1); BASOPHILS % 0.6 % (0.0-2.0); EOSINOPHILS # 0.1 10^3/ul (0.0-0.5); EOSINOPHILS % 0.8 % (0.0-7.0); HEMOGLOBIN 8.8 g/dl (12.0-16.0); LYMPHOCYTES # 1.7 10^3/ul (0.8-2.9); LYMPHOCYTES % 13.7 % (15.0-51.0); MEAN CORPUSCULAR HEMOGLOBIN 30.4 pg (29.0-33.0); MEAN CORPUSCULAR HGB CONC 32.6 g/dl (32.0-37.0); MEAN CORPUSCULAR VOLUME 93.4 fl (82.0-101.0); MEAN PLATELET VOLUME 9.5 fl (7.4-10.4); MONOCYTE # 1.1 10^3/ul (0.3-0.9); MONOCYTES % 9.3 % (0.0-11.0); NEUTROPHIL # 9.2 10^3/ul (1.6-7.5); NEUTROPHILS % 74.6 % (39.0-77.0); PLATELET COUNT 526 10^3/UL (140-415); RED BLOOD COUNT 2.89 10^6/ul (4.20-5.40); RED CELL DISTRIBUTION WIDTH 14.5 % (11.5-14.5); WHITE BLOOD COUNT 12.3 10^3/ul (4.8-10.8)
[2016-10-23 02:03] LABS: INR 1.12; PROTIME 14.4 Sec (12.2-14.2); PT RATIO 1.1
[2016-10-23 02:04] LABS: PARTIAL THROMBOPLASTIN TIME 32.7 Sec (25.0-35.0)
[2016-10-23 02:09] LABS: ALBUMIN 2.7 g/dl (3.3-4.9); ALBUMIN/GLOBULIN RATIO 0.87; CALCIUM 8.5 mg/dl (8.4-10.2); CREATININE 0.68 mg/dl (0.44-1.00); POTASSIUM 3.3 mmol/L (3.5-5.1); TOTAL PROTEIN 5.8 g/dl (6.1-8.1)
[2016-10-23] MEDS: POTASSIUM CHLORIDE 50 ML IVPB PRN ×3 (02:35→05:54)
[2016-10-23] MEDS: VANCOMYCIN 750 MG in SOD CHLORIDE 0.9% 150 ML IVPB SCH ×2 (03:02→12:33)
[2016-10-23] MEDS: ALBUTEROL/IPRATROPIUM (NEB) 3 ML AMP HHN SCH ×6 (04:00→20:25)
[2016-10-23] MEDS: PIPER-TAZO 3.375 GM IV (PMX) 100 ML IVPB SCH ×3 (05:12→21:07)
[2016-10-23] MEDS: VORICONAZOLE 200 MG TAB PO SCH ×2 (08:55→20:56)
[2016-10-23] MEDS: BALSAM PERU/CASTOR OIL 60 GM TUBE TOP SCH (08:55)
[2016-10-23] MEDS: NYSTATIN 30 GM POWDER BTL TOP SCH ×2 (08:55→20:56)
[2016-10-23] MEDS: ENOXAPARIN 40 MG/0.4 ML SYG SC SCH (08:58)
[2016-10-23] MEDS: SOD CHLORIDE 0.9% 1,000 ML IV SCH (11:17)
--- NOTE | 2016-10-23 12:36 | PN ---
Date/Time of Note Date/Time of Note DATE: 10/23/16 TIME: 12:33 Assessment/Plan VTE Prophylaxis VTE Prophylaxis Intervention: LMWH Lines/Catheters IV Catheter Type (from Nrsg): Peripheral IV Urinary Cath still in place: Yes Reason Cath still needed: urinary retention, other (indicate) (strict I/O ) Assessment/Plan Assessment/Plan #1 sepsis: Healthcare associated pneumonia versus aspiration pneumonia and urinary tract infection- on IV abx # acute resp failure due to HCAP-intubated on ventilator , s/p Extubation on 02/26 #2 Dementia - baseline #3 anemia: Normocytic anemia. At the current time we will continue to monitor this no signs of bleeding at this time. #4 hypothyroidism: Continue home medication #5 dysphagia: s/p dietary consult ,NG tube in place #6 H/o right knee replacement: #7 DVT and GI prophylaxis: lovenox , Protonix s/p Palliative care consutl, FULL CODE, Pulmonary has been following patient also passes swallow, resume her ASA and Levothyroxine Resume Tube feeding at 30 cc/hr and advance as tolerated Transfer to Telemetry floor Subjective 24 Hr Interval Summary Free Text/Dictation s/p extubation, passed swallow, BP stable Exam/Review of Systems Vital Signs Vitals Vital Signs Date Time Temp Pulse Resp B/P Pulse Ox O2 Delivery O2 Flow Rate FiO2 10/23/16 12:01 98 25 99 Nasal Cannula 3.0 10/23/16 10:00 151/81 10/23/16 08:00 98.6 10/22/16 09:20 40 Intake and Output 10/22/16 10/22/16 10/23/16 15:00 23:00 07:00 Intake Total 560 ml 660 ml 960 ml Output Total 1475 ml 745 ml 465 ml Balance -915 ml -85 ml 495 ml Exam Constitutional: extubted on NC, + NG tube Head: normocephalic Respiratory: Bibasilar Crackles, Decreased BS at bases Cardiovascular: nl pulses, regular rate and rhythm Gastrointestinal: non-tender, soft Neurological: Not able to assess Results Result Diagram: 10/23/16 0120 10/23/16 0120 Results 24 hrs Laboratory Tests Test 10/23/16 01:02 10/23/16 01:20 Vancomycin Level Trough 13.6 White Blood Count 12.3 H Red Blood Count 2.89 L Hemoglobin 8.8 L Hematocrit 27.0 L Mean Corpuscular Volume 93.4 Mean Corpuscular Hemoglobin 30.4 Mean Corpuscular Hemoglobin Concent 32.6 Red Cell Distribution Width 14.5 Platelet Count 526 H Mean Platelet Volume 9.5 Neutrophils % 74.6 Lymphocytes % 13.7 L Monocytes % 9.3 Eosinophils % 0.8 Basophils % 0.6 Nucleated Red Blood Cells % 0.0 Neutrophils # 9.2 H Lymphocytes # 1.7 Monocytes # 1.1 H Eosinophils # 0.1 Basophils # 0.1 Nucleated Red Blood Cells # 0.0 Prothrombin Time 14.4 H Prothrombin Time Ratio 1.1 INR International Normalized Ratio 1.12 Activated Partial Thromboplast Time 32.7 Sodium Level 143 Potassium Level 3.3 L Chloride Level 107 Carbon Dioxide Level 25 Anion Gap 14 Blood Urea Nitrogen 13 Creatinine 0.68 Glucose Level 111 Calcium Level 8.5 Magnesium Level 1.8 Total Bilirubin 1.0 Direct Bilirubin 0.00 Indirect Bilirubin 1.0 Aspartate Amino Transf (AST/SGOT) 47 H Alanine Aminotransferase (ALT/SGPT) 69 Alkaline Phosphatase 167 H Total Protein 5.8 L Albumin 2.7 L Globulin 3.10 Albumin/Globulin Ratio 0.87 Medications Medications Current Medications Miscellaneous Information This patient loaiza... PRN PRN XX WOUND CARE; Start at 02:00 Sodium Chloride (NS) 1,000 ml @ 70 mls/hr [id number] IV Last administered on 10/23 11:17; Admin Dose 70 MLS/HR; Start 10/18/16 at 02:30 Hydralazine HCl 10 mg 10 mg Q6H PRN IV SBP>160 Last administered on 10/22/16 09:05; Admin Dose 10 MG; Start 10/18/16 at 11:00 Piperacillin Sod/ Tazobactam Sod (Zosyn 3.375gm/ 100 ml (Pmx)) 100 ml @ 200 mls /hr Q8 IVPB Last administered on 10/23/16 05:12; Admin Dose 200 MLS/HR; Start 10/18/16 at 14:00 Nystatin (Nystatin Powder) 1 applic BID TOP Last administered on 10/23/16 08: 55; Admin Dose 1 APPLIC; Start 10/18/16 at 21:00 Enoxaparin Sodium 40 mg 40 mg DAILY SC Last administered on 10/23/16 08:58; Admin Dose 40 MG; Start 10/19/16 at 13:00 Midazolam HCl 50 ml @ 1 mls/hr TITRATE IV Last administered on 10/21/16 03:31 ; Admin Dose 4 MLS/HR; Start 10/20/16 at 10:00 Vancomycin HCl 750 mg/Sodium Chloride 150 ml @ 75 mls/hr Q12H IVPB Last administered on 10/23/16 03:02; Admin Dose 75 MLS/HR; Start 10/21/16 at 13:00 Fentanyl (Sublimaze) 100 ml @ 2.5 mls/hr TITRATE IV ; Start 10/21/16 at 14:30 Acetaminophen (Tylenol Liquid) 650 mg Q4H PRN NGT PAIN AND OR ELEVATED TEMP Last administered on 10/22/16 17:14; Admin Dose 650 MG; Start 10/22/16 at 12:30 Voriconazole (Vfend) 200 mg BID PO Last administered on 10/23/16 08:55; Admin Dose 200 MG; Start 10/22/16 at 21:30 LORENZO BONNER MD Oct 23, 2016 12:35
--- NOTE | 2016-10-23 12:41 | CONS ---
Date/Time of Note Date/Time of Note DATE: 10/23/16 TIME: 12:38 Consult Date/Type/Reason Admit Date/Time Oct 17, 2016 at 22:37 Initial Consult Date 10/20/16 Type of Consultation: Pulmonary Subjective Extubated yesterday. Awake alert. Comfortable this morning.Few rhonchi. Objective Vital Signs Date Time Temp Pulse Resp B/P Pulse Ox O2 Delivery O2 Flow Rate FiO2 10/23/16 12:01 98 25 99 Nasal Cannula 3.0 10/23/16 12:00 98.5 146/67 10/22/16 09:20 40 Intake and Output 10/22/16 10/22/16 10/23/16 15:00 23:00 07:00 Intake Total 560 ml 660 ml 960 ml Output Total 1475 ml 745 ml 465 ml Balance -915 ml -85 ml 495 ml Exam PHYSICAL EXAMINATION GENERAL: Elderly lady, nasal cannula oxygen VITAL SIGNS: see below. HEENT: Pupils equal, round, and reactive to light. CARDIAC: S1, S2, 1/6 systolic ejection murmur CHEST: Diminished air entry bilaterally.Coarse rhonchi ABDOMEN: Mildly distended. Bowel sounds present no guarding or rebound EXTREMITIES: No cyanosis, clubbing edema +1 NEUROLOGIC: Generalized weakness Results/Medications Result Diagram: 10/23/16 0120 10/23/16 0120 Results 24 hrs Laboratory Tests Test 10/23/16 01:02 10/23/16 01:20 Vancomycin Level Trough 13.6 White Blood Count 12.3 H Red Blood Count 2.89 L Hemoglobin 8.8 L Hematocrit 27.0 L Mean Corpuscular Volume 93.4 Mean Corpuscular Hemoglobin 30.4 Mean Corpuscular Hemoglobin Concent 32.6 Red Cell Distribution Width 14.5 Platelet Count 526 H Mean Platelet Volume 9.5 Neutrophils % 74.6 Lymphocytes % 13.7 L Monocytes % 9.3 Eosinophils % 0.8 Basophils % 0.6 Nucleated Red Blood Cells % 0.0 Neutrophils # 9.2 H Lymphocytes # 1.7 Monocytes # 1.1 H Eosinophils # 0.1 Basophils # 0.1 Nucleated Red Blood Cells # 0.0 Prothrombin Time 14.4 H Prothrombin Time Ratio 1.1 INR International Normalized Ratio 1.12 Activated Partial Thromboplast Time 32.7 Sodium Level 143 Potassium Level 3.3 L Chloride Level 107 Carbon Dioxide Level 25 Anion Gap 14 Blood Urea Nitrogen 13 Creatinine 0.68 Glucose Level 111 Calcium Level 8.5 Magnesium Level 1.8 Total Bilirubin 1.0 Direct Bilirubin 0.00 Indirect Bilirubin 1.0 Aspartate Amino Transf (AST/SGOT) 47 H Alanine Aminotransferase (ALT/SGPT) 69 Alkaline Phosphatase 167 H Total Protein 5.8 L Albumin 2.7 L Globulin 3.10 Albumin/Globulin Ratio 0.87 Medications Current Medications Miscellaneous Information (Pending Santyl Order For Wound Care) This patient loaiza... PRN PRN XX WOUND CARE; Start 10/18/16 at 02:00 Hydralazine HCl 10 mg 10 mg Q6H PRN IV SBP>160 Last administered on 10/22/16 09:05; Admin Dose 10 MG; Start 10/18/16 at 11:00 Piperacillin Sod/ Tazobactam Sod (Zosyn 3.375gm/ 100 ml (Pmx)) 100 ml @ 200 mls /hr Q8 IVPB Last administered on 10/23/16 05:12; Admin Dose 200 MLS/HR; Start 10/18/16 at 14:00 Nystatin (Nystatin Powder) 1 applic BID TOP Last administered on 10/23/16 08: 55; Admin Dose 1 APPLIC; Start 10/18/16 at 21:00 Enoxaparin Sodium 40 mg 40 mg DAILY SC Last administered on 10/23/16 08:58; Admin Dose 40 MG; Start 10/19/16 at 13:00 Vancomycin HCl 750 mg/Sodium Chloride 150 ml @ 75 mls/hr Q12H IVPB Last administered on 10/23/16 12:33; Admin Dose 75 MLS/HR; Start 10/21/16 at 13:00 Fentanyl (Sublimaze) 100 ml @ 2.5 mls/hr TITRATE IV ; Start 10/21/16 at 14:30 Acetaminophen (Tylenol Liquid) 650 mg Q4H PRN NGT PAIN AND OR ELEVATED TEMP Last administered on 10/22/16 17:14; Admin Dose 650 MG; Start 10/22/16 at 12:30 Voriconazole (Vfend) 200 mg BID PO Last administered on 10/23/16 08:55; Admin Dose 200 MG; Start 10/22/16 at 21:30 Aspirin (Ecotrin) 325 mg BID PO ; Start 10/23/16 at 21:00 Assessment/Plan Chief Complaint/Hosp Course Assessment 1. Hypoxemic respiratory failure, now extubated. 2. Possible aspiration pneumonia versus healthcare associated pneumonia, ST evaluation tomorrow. 3. History of progressive dementia 4. History of recent right total knee replacement 5. Hypokalemia Plan 1. Aspiration precautions. Pulmonary toilet. 2. Continue broad-spectrum antibiotic coverage 2. Speech therapy evaluation. 4. DVT and GI prophylaxis 5. Replace potassium 6. Palliative care recommendations Disposition Continue ICU care Critical care time 40 minutes. Discussed with patients daughter. OK for reintubation if needed. Problems: NEELAM RAMIREZ MD, [facility] Oct 23, 2016 12:41
[2016-10-23] MEDS ORDERED: POTASSIUM CHLORIDE 20 MEQ in SOD CHLORIDE 0.9% 100 ML IVPB ONE (14:00)
--- NOTE | 2016-10-23 20:52 | PN ---
DATE: 10/23/2016 SUBJECTIVE DATA: No acute changes. The patient was extubated yesterday. She is very lethargic but arousable. She tolerates tube feeding. Family at bedside. OBJECTIVE DATA: Temperature 98.5, pulse 99, respirations 20, blood pressure 136/67, saturation 99 on 3L nasal cannula. LABORATORY STUDIES: WBC 12.3, H and H 8.8 and 27, platelets 526. Neutrophils 74.6, BUN 13, creatinine 0.68. Microbiology: Sputum culture growing mold. Indwelling: NG tube, Robertson catheter. Antimicrobials: Voriconazole, Vanco, Zosyn. PHYSICAL EXAMINATION: Fragile, elderly woman who is lethargic and in no distress. HEENT: Head atraumatic, normocephalic. Sclerae anicteric, buccal mucosa dry. NECK: Supple. Trachea midline. CHEST: Chest rise symmetric. Breath sounds diminished at bases. HEART: S1, S2. ABDOMEN: Soft. Bowel sounds present. EXTREMITIES: Without cyanosis. ASSESSMENT AND PLAN: 1. Resolving sepsis. 2. Healthcare-associated pneumonia, possibly aspiration type. 3. Respiratory failure, status post successfully extubated. 4. Dysphagia. 5. Encephalopathy. 6. History of recent right total knee replacement. PLAN: Patient remains stable post extubation. She is on appropriate antimicrobials. Pending final sputum cultures. Pending swallow evaluation in a.m. Continue antiaspiration measures, NG tube feedings, follow recommendations of consultants. Above was discussed with daughter at bedside. Dictated By: Mandi Hernandez NP /ada/aly /Document#: [id number]
[2016-10-23] MEDS: ASPIRIN (EC) 325 MG TAB PO SCH (20:56)
[2016-10-24] VITALS (17 sets, daily range): BP systolic 119–166; BP diastolic 61–84; PULSE 80–95; RESP 17–31
[2016-10-24] MEDS: VANCOMYCIN 750 MG in SOD CHLORIDE 0.9% 150 ML IVPB SCH ×2 (00:28→13:33)
[2016-10-24] MEDS: ALBUTEROL/IPRATROPIUM (NEB) 3 ML AMP HHN SCH ×6 (01:17→20:09)
[2016-10-24 05:39] LABS: AADO2 Arterial 87.1 mmHg (7.0-24.0); Allen Test ACCEPTAB; Arterial Base Excess 0.3 mmol/L (-3.0-3); Arterial COHb 0.3 % (0.0-3.0); Arterial Fraction of Oxyhgb 96.2 % (93.0-99.0); Arterial HCO3 23.8 mmol/L (22.0-26.0); Arterial MetHb 0.2 % (0.0-1.5); Arterial Total Hemglobin 13.9 g/dl (12.0-18.0); MODE NASAL CANNULA
[2016-10-24 05:55] LABS: BASOPHIL # 0.1 10^3/ul (0.0-0.1); BASOPHILS % 0.6 % (0.0-2.0); EOSINOPHILS # 0.2 10^3/ul (0.0-0.5); EOSINOPHILS % 1.1 % (0.0-7.0); HEMATOCRIT 28.3 % (37.0-47.0); HEMOGLOBIN 9.2 g/dl (12.0-16.0); LYMPHOCYTES # 1.3 10^3/ul (0.8-2.9); MEAN CORPUSCULAR HEMOGLOBIN 30.9 pg (29.0-33.0); MEAN CORPUSCULAR HGB CONC 32.5 g/dl (32.0-37.0); MEAN PLATELET VOLUME 9.3 fl (7.4-10.4); MONOCYTE # 0.8 10^3/ul (0.3-0.9); MONOCYTES % 5.7 % (0.0-11.0); NEUTROPHIL # 11.7 10^3/ul (1.6-7.5); NEUTROPHILS % 82.5 % (39.0-77.0); PLATELET COUNT 507 10^3/UL (140-415); RED BLOOD COUNT 2.98 10^6/ul (4.20-5.40); RED CELL DISTRIBUTION WIDTH 14.5 % (11.5-14.5); WHITE BLOOD COUNT 14.2 10^3/ul (4.8-10.8)
[2016-10-24] MEDS: LEVOTHYROXINE 75 MCG TAB PO SCH (06:11)
[2016-10-24] MEDS: PIPER-TAZO 3.375 GM IV (PMX) 100 ML IVPB SCH ×3 (06:11→21:14)
[2016-10-24 06:15] LABS: INR 1.05; PROTIME 13.7 Sec (12.2-14.2); PT RATIO 1.1
[2016-10-24 06:25] LABS: PHOSPHORUS 2.4 mg/dl (2.5-4.9)
[2016-10-24 06:27] LABS: ALBUMIN 2.9 g/dl (3.3-4.9); ALBUMIN/GLOBULIN RATIO 0.96; BILIRUBIN,INDIRECT 0.6 mg/dl (0-1.1); BILIRUBIN,TOTAL 0.6 mg/dl (0.2-1.3); CALCIUM 8.8 mg/dl (8.4-10.2); CREATININE 0.62 mg/dl (0.44-1.00); POTASSIUM 3.5 mmol/L (3.5-5.1); TOTAL PROTEIN 5.9 g/dl (6.1-8.1)
--- NOTE | 2016-10-24 08:00 | RADRPT ---
PROCEDURE: XR Chest. CLINICAL INDICATION: CHF, pneumonia TECHNIQUE: AP Portable chest. COMPARISON: 10/22/2016 FINDINGS: Interval removal of the endotracheal tube. Nasogastric tube remains in place. There is artifact of the left apex. The lung volumes are low. Interval increase edema, bilateral l ower lung opacities, greater on the left and small left pleural effusion. No pneumothorax is seen. T he left heart border and hemidiaphragm are obscured. The aorta is calcified and tortuous. The bones are demineralized. IMPRESSION: Interval removal of the endotracheal tube. NG tube in place. Increase edema, right basilar atelectasis, left lower lobe opacity and pleural effusion. RPTAT: HCNS Physician Nash Date Time Electronically viewed and signed by Jurgen Roth Physician on 10/24/2016 08:00 CS/
[2016-10-24] MEDS: NYSTATIN 30 GM POWDER BTL TOP SCH ×2 (08:47→21:00)
[2016-10-24] MEDS: BALSAM PERU/CASTOR OIL 60 GM TUBE TOP SCH (08:47)
[2016-10-24] MEDS: ASPIRIN (EC) 325 MG TAB PO SCH ×2 (08:47→21:14)
[2016-10-24] MEDS: VORICONAZOLE 200 MG TAB PO SCH ×2 (08:47→21:14)
[2016-10-24] MEDS: ENOXAPARIN 40 MG/0.4 ML SYG SC SCH (08:54)
[2016-10-24 09:02] LABS: AADO2 Arterial 85.6 mmHg (7.0-24.0); Allen Test ACCEPTAB; Arterial Base Excess -1.3 mmol/L (-3.0-3); Arterial COHb 0.2 % (0.0-3.0); Arterial HCO3 20.7 mmol/L (22.0-26.0); Arterial MetHb 0.1 % (0.0-1.5); Arterial Total Hemglobin 10.8 g/dl (12.0-18.0); Blood Gas PS 10; MODE VENT-CPAP
[2016-10-24] MEDS: POTASSIUM CHLORIDE 50 ML IVPB PRN ×2 (09:32→10:53)
--- NOTE | 2016-10-24 10:18 | CONS ---
Date/Time of Note Date/Time of Note DATE: 10/24/16 TIME: : Consult Date/Type/Reason Admit Date/Time Oct 17, 2016 at 22:37 Initial Consult Date 10/20/16 Type of Consultation: Pulmonary Subjective Patient more alert today awake alert comfortable communicating. No respiratory distress. Objective Vital Signs Date Time Temp Pulse Resp B/P Pulse Ox O2 Delivery O2 Flow Rate FiO2 10/24/16 08:31 92 20 96 Nasal Cannula 3.0 10/24/16 06:00 166/80 10/24/16 04:00 98.5 10/22/16 09:20 40 Intake and Output 10/23/16 10/23/16 10/24/16 15:00 23:00 07:00 Intake Total 730 ml 670 ml 770 ml Output Total 775 ml 390 ml 220 ml Balance -45 ml 280 ml 550 ml Exam GENERAL: Elderly lady comfortable at rest VITAL SIGNS: per chart NECK: Supple. No JVD or lymphadenopathy. CARDIAC EXAM: S1, S2. No added sounds or murmurs. CHEST: Diminished air entry left base. ABDOMEN: Soft, nontender. No guarding or rebound. EXTREMITIES: No cyanosis, clubbing or edema. NEUROLOGIC: Generalized weakness. No focal deficits. Results/Medications Result Diagram: 10/24/16 0541 10/24/16 0541 Results 24 hrs Laboratory Tests Test 10/24/16 05:00 10/24/16 05:41 Blood Gas Specimen Source Blood arterial Arterial Blood Date Drawn 10/24/2016 5:26:29 AM Arterial Blood pH (Temp corrected) 7.450 Arterial Blood pCO2 (Temp correct) 35.1 Arterial Blood pO2 (Temp corrected) 85.6 Arterial Blood HCO3 23.8 Arterial Blood Base Excess 0.3 Arterial Blood Oxygen Saturation 96.7 Alpesh Test ACCEPTAB Arterial Blood Gas Puncture Site Left Radial Arterial Blood Carboxyhemoglobin 0.3 Arterial Blood Methemoglobin 0.2 Blood Gas A-a O2 Differential 87.1 H Oxyhemoglobin Percent 96.2 Total Hemoglobin 13.9 Blood Gas Temperature 37.0 Blood Gas Actual Respiration Rate 18 Blood Gas Modality NASAL CANNULA FiO2 30.0 Blood Gas Notified Whom KB Blood Gas Notified Time 10/24/2016 5:39:34 AM White Blood Count 14.2 H Red Blood Count 2.98 L Hemoglobin 9.2 L Hematocrit 28.3 L Mean Corpuscular Volume 95.0 Mean Corpuscular Hemoglobin 30.9 Mean Corpuscular Hemoglobin Concent 32.5 Red Cell Distribution Width 14.5 Platelet Count 507 H Mean Platelet Volume 9.3 Neutrophils % 82.5 H Lymphocytes % 9.0 L Monocytes % 5.7 Eosinophils % 1.1 Basophils % 0.6 Nucleated Red Blood Cells % 0.0 Neutrophils # 11.7 H Lymphocytes # 1.3 Monocytes # 0.8 Eosinophils # 0.2 Basophils # 0.1 Nucleated Red Blood Cells # 0.0 Prothrombin Time 13.7 Prothrombin Time Ratio 1.1 INR International Normalized Ratio 1.05 Activated Partial Thromboplast Time 30.0 Sodium Level 138 Potassium Level 3.5 Chloride Level 107 Carbon Dioxide Level 27 Anion Gap 8 Blood Urea Nitrogen 14 Creatinine 0.62 Glucose Level 178 Calcium Level 8.8 Phosphorus Level 2.4 L Magnesium Level 2.0 Total Bilirubin 0.6 Direct Bilirubin 0.00 Indirect Bilirubin 0.6 Aspartate Amino Transf (AST/SGOT) 43 Alanine Aminotransferase (ALT/SGPT) 67 Alkaline Phosphatase 165 H Total Protein 5.9 L Albumin 2.9 L Globulin 3.00 Albumin/Globulin Ratio 0.96 Medications Current Medications Miscellaneous Information (Pending Santyl Order For Wound Care) This patient loaiza... PRN PRN XX WOUND CARE; Start 10/18/16 at 02:00 Hydralazine HCl 10 mg 10 mg Q6H PRN IV SBP>160 Last administered on 10/22/16 09:05; Admin Dose 10 MG; Start 10/18/16 at 11:00 Piperacillin Sod/ Tazobactam Sod (Zosyn 3.375gm/ 100 ml (Pmx)) 100 ml @ 200 mls /hr Q8 IVPB Last administered on 10/24/16 06:11; Admin Dose 200 MLS/HR; Start 10/18/16 at 14:00 Nystatin (Nystatin Powder) 1 applic BID TOP Last administered on 10/24/16 08: 47; Admin Dose 1 APPLIC; Start 10/18/16 at 21:00 Enoxaparin Sodium 40 mg 40 mg DAILY SC Last administered on 10/24/16 08:54; Admin Dose 40 MG; Start 10/19/16 at 13:00 Vancomycin HCl/ Sodium Chloride (Vancocin/NS) 150 ml @ 75 mls/hr Q12H IVPB Last administered on 10/24/16 00:28; Admin Dose 75 MLS/HR; Start 10/21/16 at 13 :00 Acetaminophen (Tylenol Liquid) 650 mg Q4H PRN NGT PAIN AND OR ELEVATED TEMP Last administered on 10/22/16 17:14; Admin Dose 650 MG; Start 10/22/16 at 12:30 Voriconazole (Vfend) 200 mg BID PO Last administered on 10/24/16 08:47; Admin Dose 200 MG; Start 10/22/16 at 21:30 Aspirin (Ecotrin) 325 mg BID PO Last administered on 10/24/16 08:47; Admin Dose 325 MG; Start 10/23/16 at 21:00 Assessment/Plan Chief Complaint/Hosp Course Assessment 1. Hypoxemic respiratory failure, now extubated. Clinically improving 2. left lower lobe pneumonia. 3. History of progressive dementia 4. History of recent right total knee replacement 5. Hypokalemia Plan 1. Aspiration precautions. Pulmonary toilet. 2. Continue broad-spectrum antibiotic coverage 2. Speech therapy evaluation. Hopefully remove nasogastric tube today 4. DVT and GI prophylaxis 5. Replace potassium 6. Palliative care recommendations Disposition Transfer to telemetry Problems: NEELAM RAMIREZ MD, [facility] Oct 24, 2016 10:18
--- NOTE | 2016-10-24 14:27 | PN ---
Date/Time of Note Date/Time of Note DATE: 10/24/16 TIME: 14:22 Assessment/Plan VTE Prophylaxis VTE Prophylaxis Intervention: LMWH Lines/Catheters IV Catheter Type (from Nrs): Peripheral IV Assessment/Plan Chief Complaint/Hosp Course #1 sepsis: Healthcare associated pneumonia versus aspiration pneumonia and urinary tract infection- on IV abx # acute resp failure due to HCAP-intubated on ventilator , s/p Extubation on 02/26 #2 Dementia - baseline #3 anemia: Normocytic anemia. At the current time we will continue to monitor this no signs of bleeding at this time. #4 hypothyroidism: Continue home medication #5 dysphagia: s/p dietary consult ,NG tube in place #6 H/o right knee replacement: #7 DVT and GI prophylaxis: lovenox , Protonix s/p Palliative care consult, FULL CODE, Pulmonary has been following patient also passes swallow, resume her ASA and Levothyroxine Resume Tube feeding at 30 cc/hr and advance as tolerated Transfer to Telemetry floor Problems: Subjective 24 Hr Interval Summary Constitutional: disoriented Exam/Review of Systems Vital Signs Vitals Vital Signs Date Time Temp Pulse Resp B/P Pulse Ox O2 Delivery O2 Flow Rate FiO2 10/24/16 13:44 91 18 99 Nasal Cannula 3.0 10/24/16 13:00 148/73 10/24/16 12:00 98.4 10/22/16 09:20 40 Intake and Output 10/23/16 10/23/16 10/24/16 15:00 23:00 07:00 Intake Total 730 ml 670 ml 770 ml Output Total 775 ml 390 ml 220 ml Balance -45 ml 280 ml 550 ml Exam Constitutional: alert Psych: confusion Respiratory: clear to auscultation Cardiovascular: regular rate and rhythm Gastrointestinal: soft, No distended Musculoskeletal: nl extremities to inspection Results Result Diagram: 10/24/16 0541 10/24/16 0541 Results 24 hrs Laboratory Tests Test 10/24/16 05:00 10/24/16 05:41 Blood Gas Specimen Source Blood arterial Arterial Blood Date Drawn 10/24/2016 5:26:29 AM Arterial Blood pH (Temp corrected) 7.450 Arterial Blood pCO2 (Temp correct) 35.1 Arterial Blood pO2 (Temp corrected) 85.6 Arterial Blood HCO3 23.8 Arterial Blood Base Excess 0.3 Arterial Blood Oxygen Saturation 96.7 Alpesh Test ACCEPTAB Arterial Blood Gas Puncture Site Left Radial Arterial Blood Carboxyhemoglobin 0.3 Arterial Blood Methemoglobin 0.2 Blood Gas A-a O2 Differential 87.1 H Oxyhemoglobin Percent 96.2 Total Hemoglobin 13.9 Blood Gas Temperature 37.0 Blood Gas Actual Respiration Rate 18 Blood Gas Modality NASAL CANNULA FiO2 30.0 Blood Gas Notified Whom KB Blood Gas Notified Time 10/24/2016 5:39:34 AM White Blood Count 14.2 H Red Blood Count 2.98 L Hemoglobin 9.2 L Hematocrit 28.3 L Mean Corpuscular Volume 95.0 Mean Corpuscular Hemoglobin 30.9 Mean Corpuscular Hemoglobin Concent 32.5 Red Cell Distribution Width 14.5 Platelet Count 507 H Mean Platelet Volume 9.3 Neutrophils % 82.5 H Lymphocytes % 9.0 L Monocytes % 5.7 Eosinophils % 1.1 Basophils % 0.6 Nucleated Red Blood Cells % 0.0 Neutrophils # 11.7 H Lymphocytes # 1.3 Monocytes # 0.8 Eosinophils # 0.2 Basophils # 0.1 Nucleated Red Blood Cells # 0.0 Prothrombin Time 13.7 Prothrombin Time Ratio 1.1 INR International Normalized Ratio 1.05 Activated Partial Thromboplast Time 30.0 Sodium Level 138 Potassium Level 3.5 Chloride Level 107 Carbon Dioxide Level 27 Anion Gap 8 Blood Urea Nitrogen 14 Creatinine 0.62 Glucose Level 178 Calcium Level 8.8 Phosphorus Level 2.4 L Magnesium Level 2.0 Total Bilirubin 0.6 Direct Bilirubin 0.00 Indirect Bilirubin 0.6 Aspartate Amino Transf (AST/SGOT) 43 Alanine Aminotransferase (ALT/SGPT) 67 Alkaline Phosphatase 165 H Total Protein 5.9 L Albumin 2.9 L Globulin 3.00 Albumin/Globulin Ratio 0.96 Medications Medications Current Medications Miscellaneous Information (Pending Santyl Order For Wound Care) This patient loaiza... PRN PRN XX WOUND CARE; Start 10/18/16 at 02:00 Hydralazine HCl 10 mg 10 mg Q6H PRN IV SBP>160 Last administered on 10/22/16 09:05; Admin Dose 10 MG; Start 10/18/16 at 11:00 Piperacillin Sod/ Tazobactam Sod (Zosyn 3.375gm/ 100 ml (Pmx)) 100 ml @ 200 mls /hr Q8 IVPB Last administered on 10/24/16 06:11; Admin Dose 200 MLS/HR; Start 10/18/16 at 14:00 Nystatin (Nystatin Powder) 1 applic BID TOP Last administered on 10/24/16 08: 47; Admin Dose 1 APPLIC; Start 10/18/16 at 21:00 Enoxaparin Sodium 40 mg 40 mg DAILY SC Last administered on 10/24/16 08:54; Admin Dose 40 MG; Start 10/19/16 at 13:00 Vancomycin HCl/ Sodium Chloride (Vancocin/NS) 150 ml @ 75 mls/hr Q12H IVPB Last administered on 10/24/16 13:33; Admin Dose 75 MLS/HR; Start 10/21/16 at 13 :00 Acetaminophen (Tylenol Liquid) 650 mg Q4H PRN NGT PAIN AND OR ELEVATED TEMP Last administered on 10/22/16 17:14; Admin Dose 650 MG; Start 10/22/16 at 12:30 Voriconazole (Vfend) 200 mg BID PO Last administered on 10/24/16 08:47; Admin Dose 200 MG; Start 10/22/16 at 21:30 Aspirin (Ecotrin) 325 mg BID PO Last administered on 10/24/16 08:47; Admin Dose 325 MG; Start 10/23/16 at 21:00 Miscellaneous Information (*Rx Drug Level Order Reminder*) VANCOMYCIN TROUGH AT 0000 ONCE ONCE XX ; Start 10/25/16 at 00:00; Stop 10/25/16 at 00:01 CHAD DAVIS Oct 24, 2016 14:27
--- NOTE | 2016-10-24 15:57 | CONS ---
Date/Time of Note Date/Time of Note DATE: 10/24/16 TIME: 15:54 Consultation Date/Type/Reason Admit Date/Time Oct 17, 2016 at 22:37 Initial Consult Date 10/20/16 Type of Consultation: Palliative care Reason for Consultation Post date of progress note for October 22, 2016. Family conference was done with patient's 3 daughters and a family friend. Reviewed goals of care patient' s current major medical problems. Her condition prior to presentation including her ability to do all her ADLs, cognitively intact and the patient had a good quality of life. Other psychosocial issues were covered as well as at the goals. Conversation turned to patient's CODE STATUS in the event that she has a further catastrophic change in her medical course. We discussed options family members are very tearful decided that they would not want her to have a prolonged and possibly painful end of life. Patient's code is changed to DO NOT RESUSCITATE on that date October 22. Exam/Review of Systems Vital Signs Vitals Vital Signs Date Time Temp Pulse Resp B/P Pulse Ox O2 Delivery O2 Flow Rate FiO2 10/24/16 13:44 91 18 99 Nasal Cannula 3.0 10/24/16 13:00 148/73 10/24/16 12:00 98.4 10/22/16 09:20 40 Intake and Output 10/23/16 10/23/16 10/24/16 15:00 23:00 07:00 Intake Total 730 ml 670 ml 770 ml Output Total 775 ml 390 ml 220 ml Balance -45 ml 280 ml 550 ml Results Result Diagram: 10/24/16 0541 10/24/16 0541 Results 24 hrs Laboratory Tests Test 10/24/16 05:00 10/24/16 05:41 Blood Gas Specimen Source Blood arterial Arterial Blood Date Drawn 10/24/2016 5:26:29 AM Arterial Blood pH (Temp corrected) 7.450 Arterial Blood pCO2 (Temp correct) 35.1 Arterial Blood pO2 (Temp corrected) 85.6 Arterial Blood HCO3 23.8 Arterial Blood Base Excess 0.3 Arterial Blood Oxygen Saturation 96.7 Alpesh Test ACCEPTAB Arterial Blood Gas Puncture Site Left Radial Arterial Blood Carboxyhemoglobin 0.3 Arterial Blood Methemoglobin 0.2 Blood Gas A-a O2 Differential 87.1 H Oxyhemoglobin Percent 96.2 Total Hemoglobin 13.9 Blood Gas Temperature 37.0 Blood Gas Actual Respiration Rate 18 Blood Gas Modality NASAL CANNULA FiO2 30.0 Blood Gas Notified Whom KB Blood Gas Notified Time 10/24/2016 5:39:34 AM White Blood Count 14.2 H Red Blood Count 2.98 L Hemoglobin 9.2 L Hematocrit 28.3 L Mean Corpuscular Volume 95.0 Mean Corpuscular Hemoglobin 30.9 Mean Corpuscular Hemoglobin Concent 32.5 Red Cell Distribution Width 14.5 Platelet Count 507 H Mean Platelet Volume 9.3 Neutrophils % 82.5 H Lymphocytes % 9.0 L Monocytes % 5.7 Eosinophils % 1.1 Basophils % 0.6 Nucleated Red Blood Cells % 0.0 Neutrophils # 11.7 H Lymphocytes # 1.3 Monocytes # 0.8 Eosinophils # 0.2 Basophils # 0.1 Nucleated Red Blood Cells # 0.0 Prothrombin Time 13.7 Prothrombin Time Ratio 1.1 INR International Normalized Ratio 1.05 Activated Partial Thromboplast Time 30.0 Sodium Level 138 Potassium Level 3.5 Chloride Level 107 Carbon Dioxide Level 27 Anion Gap 8 Blood Urea Nitrogen 14 Creatinine 0.62 Glucose Level 178 Calcium Level 8.8 Phosphorus Level 2.4 L Magnesium Level 2.0 Total Bilirubin 0.6 Direct Bilirubin 0.00 Indirect Bilirubin 0.6 Aspartate Amino Transf (AST/SGOT) 43 Alanine Aminotransferase (ALT/SGPT) 67 Alkaline Phosphatase 165 H Total Protein 5.9 L Albumin 2.9 L Globulin 3.00 Albumin/Globulin Ratio 0.96 Medications Medications Current Medications Misc[facility] This patient loaiza... PRN PRN XX WOUND CARE; Start 10/18/16 at 02:00 Hydralazine HCl 10 mg 10 mg Q6H PRN IV SBP>160 Last administered on 10/22/16 09:05; Admin Dose 10 MG; Start 10/18/16 at 11:00 Piperacillin Sod/ Tazobactam Sod (Zosyn 3.375gm/ 100 ml (Pmx)) 100 ml @ 200 mls /hr Q8 IVPB Last administered on 10/24/16 15:42; Admin Dose 200 MLS/HR; Start 10/18/16 at 14:00 Nystatin (Nystatin Powder) 1 applic BID TOP Last administered on 10/24/16 08: 47; Admin Dose 1 APPLIC; Start 10/18/16 at 21:00 Enoxaparin Sodium 40 mg 40 mg DAILY SC Last administered on 10/24/16 08:54; Admin Dose 40 MG; Start 10/19/16 at 13:00 Vancomycin HCl/ Sodium Chloride (Vancocin/NS) 150 ml @ 75 mls/hr Q12H IVPB Last administered on 10/24/16 13:33; Admin Dose 75 MLS/HR; Start 10/21/16 at 13 :00 Acetaminophen (Tylenol Liquid) 650 mg Q4H PRN NGT PAIN AND OR ELEVATED TEMP Last administered on 10/22/16 17:14; Admin Dose 650 MG; Start 10/22/16 at 12:30 Voriconazole (Vfend) 200 mg BID PO Last administered on 10/24/16 08:47; Admin Dose 200 MG; Start 10/22/16 at 21:30 Aspirin (Ecotrin) 325 mg BID PO Last administered on 10/24/16 08:47; Admin Dose 325 MG; Start 10/23/16 at 21:00 Miscellaneous Information (*Rx Drug Level Order Reminder*) VANCOMYCIN TROUGH AT 0000 ONCE ONCE XX ; Start 10/25/16 at 00:00; Stop 10/25/16 at 00:01 JUSTINE TRUJILLO Oct 24, 2016 15:57
[2016-10-25] VITALS (12 sets, daily range): BP systolic 127–151; BP diastolic 53–78; PULSE 94–110; RESP 17–18
[2016-10-25] MEDS: ALBUTEROL/IPRATROPIUM (NEB) 3 ML AMP HHN SCH ×6 (02:30→20:19)
[2016-10-25] MEDS: VANCOMYCIN 750 MG in SOD CHLORIDE 0.9% 150 ML IVPB SCH ×2 (02:50→12:53)
--- NOTE | 2016-10-25 04:10 | PN ---
DATE: 10/24/2016 SUBJECTIVE DATA: No acute changes. Patient is more awake, looks comfortable. Denies pain, discomfort. Tolerating tube feeding. VITAL SIGNS: Temperature 98.4, pulse 90, respirations 20, blood pressure 148/73, saturation 99 on 3 L nasal cannula. LABORATORY STUDIES: WBC 14.2, platelets 507, neutrophils 82.5, H and H 9.2 and 28.3. BUN 14, creatinine 0.62. Chest x-ray revealed increased edema, right basilar atelectasis, left lower opacity and pleural effusion. INDWELLING: Robertson, NG tube. ANTIMICROBIALS: 1. Vancomycin. 2. Zosyn. PHYSICAL EXAMINATION: GENERAL: Fragile, chronically ill-appearing elderly woman who is awake, in no distress. HEENT: Head atraumatic, normocephalic. Sclerae anicteric. Buccal mucosa dry. NECK: Supple. CHEST: Rise symmetrical. Breath sounds diminished at the bases. HEART: S1, S2. ABDOMEN: Soft, bowel sounds present. EXTREMITIES: No cyanosis. ASSESSMENT: 1. Resolving sepsis. 2. Status post acute respiratory failure, extubated 2 days ago. 3. Dysphagia. 4. Pneumonia, possibly aspiration type. 5. Resolving encephalopathy. 6. Dementia. 7. Recent right total knee replacement. PLAN: Patient remains stable. Continue present care. Antibiotics. Await for swallow eval. Continue anti-aspiration measures. Dictated By: Cierra Hernandez NP /ada/sadia /Document#: [id number] MYKEL
[2016-10-25] MEDS: PIPER-TAZO 3.375 GM IV (PMX) 100 ML IVPB SCH ×3 (06:15→21:31)
[2016-10-25] MEDS: LEVOTHYROXINE 75 MCG TAB PO SCH (06:16)
[2016-10-25 07:57] LABS: BASOPHIL # 0.1 10^3/ul (0.0-0.1); BASOPHILS % 0.4 % (0.0-2.0); EOSINOPHILS # 0.3 10^3/ul (0.0-0.5); EOSINOPHILS % 2.5 % (0.0-7.0); HEMATOCRIT 25.3 % (37.0-47.0); HEMOGLOBIN 8.2 g/dl (12.0-16.0); LYMPHOCYTES # 1.6 10^3/ul (0.8-2.9); LYMPHOCYTES % 12.2 % (15.0-51.0); MEAN CORPUSCULAR HEMOGLOBIN 30.6 pg (29.0-33.0); MEAN CORPUSCULAR HGB CONC 32.4 g/dl (32.0-37.0); MEAN CORPUSCULAR VOLUME 94.4 fl (82.0-101.0); MEAN PLATELET VOLUME 9.9 fl (7.4-10.4); MONOCYTES % 7.9 % (0.0-11.0); NEUTROPHILS % 75.1 % (39.0-77.0); PLATELET COUNT 485 10^3/UL (140-415); RED BLOOD COUNT 2.68 10^6/ul (4.20-5.40); RED CELL DISTRIBUTION WIDTH 14.4 % (11.5-14.5); WHITE BLOOD COUNT 12.9 10^3/ul (4.8-10.8)
--- NOTE | 2016-10-25 08:10 | RADRPT ---
PROCEDURE: XR Chest. CLINICAL INDICATION: pna chf TECHNIQUE: Single frontal view of the chest was obtained. COMPARISON: Chest x-ray from 10/24/2016 FINDINGS: The tip of an enteric tube is unchanged in position. The cardiomediastinal silhouette is unchanged. There is a largely stable hazy opacity in the left mid to lower lung zone as well as a stable retroc ardiac opacity due to atelectasis, infiltrate, and / or effusion. The aortic arch is calcified. There is mild pulmonary vascular congestion which has minimally improved. There is stable subsegmental atelectasis and / or infiltrate at the right lung base. IMPRESSION: Mild pulmonary vascular congestion which has minimally improved. Stable opacities at the left greater than right lung base is due to infiltrates or, less likely, ate lectasis. Stable retrocardiac opacity due to atelectasis, infiltrate, and / or effusion. RPTAT: EE Physician Salty Date Time Electronically viewed and signed by Physician Salty on 10/25/2016 08:09 /
[2016-10-25 08:49] LABS: CALCIUM 8.6 mg/dl (8.4-10.2); CREATININE 0.59 mg/dl (0.44-1.00); MAGNESIUM 1.9 mg/dl (1.7-2.5); PHOSPHORUS 2.4 mg/dl (2.5-4.9); POTASSIUM 3.7 mmol/L (3.5-5.1)
[2016-10-25] MEDS: VORICONAZOLE 200 MG TAB PO SCH ×2 (09:02→21:30)
[2016-10-25] MEDS: ASPIRIN (EC) 325 MG TAB PO SCH ×2 (09:02→21:30)
[2016-10-25] MEDS: ENOXAPARIN 40 MG/0.4 ML SYG SC SCH (09:03)
[2016-10-25] MEDS: BALSAM PERU/CASTOR OIL 60 GM TUBE TOP SCH (10:37)
[2016-10-25] MEDS: NYSTATIN 30 GM POWDER BTL TOP SCH ×2 (10:37→21:31)
--- NOTE | 2016-10-25 11:31 | CONS ---
Date/Time of Note Date/Time of Note DATE: 10/25/16 TIME: 11:29 Consult Date/Type/Reason Admit Date/Time Oct 17, 2016 at 22:37 Initial Consult Date 10/20/16 Type of Consultation: Pulmonary Subjective Patient comfortable no new events Objective Vital Signs Date Time Temp Pulse Resp B/P Pulse Ox O2 Delivery O2 Flow Rate FiO2 10/25/16 08:42 3.0 10/25/16 08:41 92 20 95 10/25/16 07:44 99.4 145/61 10/25/16 05:27 Nasal Cannula 10/22/16 09:20 40 Intake and Output 10/24/16 10/24/16 10/25/16 15:00 23:00 07:00 Intake Total 620 ml 380 ml 700 ml Output Total 240 ml 450 ml 550 ml Balance 380 ml -70 ml 150 ml Exam GENERAL: Elderly lady comfortable at rest VITAL SIGNS: per chart NECK: Supple. No JVD or lymphadenopathy. CARDIAC EXAM: S1, S2. No added sounds or murmurs. CHEST: Diminished air entry left base. ABDOMEN: Soft, nontender. No guarding or rebound. EXTREMITIES: No cyanosis, clubbing or edema. NEUROLOGIC: Generalized weakness. No focal deficits. Results/Medications Result Diagram: 10/25/1670210/25/16702 Results 24 hrs Laboratory Tests Test 10/25/16 00:30 10/25/16 07:03 Vancomycin Level Trough 11.3 White Blood Count 12.9 H Red Blood Count 2.68 L Hemoglobin 8.2 L Hematocrit 25.3 L Mean Corpuscular Volume 94.4 Mean Corpuscular Hemoglobin 30.6 Mean Corpuscular Hemoglobin Concent 32.4 Red Cell Distribution Width 14.4 Platelet Count 485 H Mean Platelet Volume 9.9 Neutrophils % 75.1 Lymphocytes % 12.2 L Monocytes % 7.9 Eosinophils % 2.5 Basophils % 0.4 Nucleated Red Blood Cells % 0.0 Neutrophils # (Manual) 9.7 H Lymphocytes # 1.6 Monocytes # 1.0 H Eosinophils # 0.3 Basophils # 0.1 Nucleated Red Blood Cells # 0.0 Sodium Level 139 Potassium Level 3.7 Chloride Level 100 Carbon Dioxide Level 29 Anion Gap 14 Blood Urea Nitrogen 16 Creatinine 0.59 Glucose Level 168 Calcium Level 8.6 Phosphorus Level 2.4 L Magnesium Level 1.9 Medications Current Medications Miscellaneous Information [facility] This patient loaiza... PRN PRN XX WOUND CARE; Start 10/18/16 at 02:00 Hydralazine HCl 10 mg 10 mg Q6H PRN IV SBP>160 Last administered on 10/22/16 09:05; Admin Dose 10 MG; Start 10/18/16 at 11:00 Piperacillin Sod/ Tazobactam Sod (Zosyn 3.375gm/ 100 ml (Pmx)) 100 ml @ 200 mls /hr Q8 IVPB Last administered on 10/25/16 06:15; Admin Dose 200 MLS/HR; Start 10/18/16 at 14:00 Nystatin (Nystatin Powder) 1 applic BID TOP Last administered on 10/25/16 10: 37; Admin Dose 1 APPLIC; Start 10/18/16 at 21:00 Enoxaparin Sodium 40 mg 40 mg DAILY SC Last administered on 10/25/16 09:03; Admin Dose 40 MG; Start 10/19/16 at 13:00 Vancomycin HCl/ Sodium Chloride (Vancocin/NS) 150 ml @ 75 mls/hr Q12H IVPB Last administered on 10/25/16 02:50; Admin Dose 75 MLS/HR; Start 10/21/16 at 13 :00 Acetaminophen (Tylenol Liquid) 650 mg Q4H PRN NGT PAIN AND OR ELEVATED TEMP Last administered on 10/22/16 17:14; Admin Dose 650 MG; Start 10/22/16 at 12:30 Voriconazole (Vfend) 200 mg BID PO Last administered on 10/25/16 09:02; Admin Dose 200 MG; Start 10/22/16 at 21:30 Aspirin (Ecotrin) 325 mg BID PO Last administered on 10/25/16 09:02; Admin Dose 325 MG; Start 10/23/16 at 21:00 Assessment/Plan Chief Complaint/Hosp Course Assessment 1. Hypoxemic respiratory failure, now extubated. 2. left lower lobe pneumonia. 3. History of progressive dementia 4. History of recent right total knee replacement 5. Hypokalemia Plan 1. Aspiration precautions. Pulmonary toilet. 2. Continue broad-spectrum antibiotic coverage 2. Speech therapy evaluation. 4. DVT and GI prophylaxis 5. Replace potassium 6. Palliative care recommendations Problems: [facility] RAMIREZ [facility] Oct 25, 2016 11:31
--- NOTE | 2016-10-25 16:12 | PN ---
Date/Time of Note Date/Time of Note DATE: 10/25/16 TIME: 16:10 Assessment/Plan VTE Prophylaxis VTE Prophylaxis Intervention: LMWH Lines/Catheters IV Catheter Type (from Nrs): Peripheral IV Assessment/Plan Chief Complaint/Hosp Course #1 sepsis: Healthcare associated pneumonia versus aspiration pneumonia and urinary tract infection- on IV abx # acute resp failure due to HCAP-intubated on ventilator , s/p Extubation on 02/26 #2 Dementia - baseline #3 anemia: Normocytic anemia. At the current time we will continue to monitor this no signs of bleeding at this time. #4 hypothyroidism: Continue home medication #5 dysphagia: s/p dietary consult ,NG tube in place #6 H/o right knee replacement: #7 DVT and GI prophylaxis: lovenox , Protonix s/p Palliative care consult, FULL CODE, Pulmonary has been following patient also Speech therapy work with patient today and cleared for pured diet Resume Tube feeding at 30 cc/hr if needed Anticipate DC in 1-2 days if tolerating p.o. diet otherwise will need PEG tube Problems: Subjective 24 Hr Interval Summary Constitutional: disoriented Exam/Review of Systems Vital Signs Vitals Vital Signs Date Time Temp Pulse Resp B/P Pulse Ox O2 Delivery O2 Flow Rate FiO2 10/25/16 15:13 99.1 65 18 151/65 98 10/25/16 13:40 3.0 10/25/16 08:00 Nasal Cannula 10/22/16 09:20 40 Intake and Output 10/24/16 10/24/16 10/25/16 15:00 23:00 07:00 Intake Total 620 ml 380 ml 700 ml Output Total 240 ml 450 ml 550 ml Balance 380 ml -70 ml 150 ml Exam Constitutional: alert Psych: confusion Respiratory: clear to auscultation Cardiovascular: regular rate and rhythm Gastrointestinal: soft, No distended Musculoskeletal: nl extremities to inspection Results Result Diagram: 10/25/16 0703 10/25/16 0703 Results 24 hrs Laboratory Tests Test 10/25/16 00:30 10/25/16 07:03 Vancomycin Level Trough 11.3 White Blood Count 12.9 H Red Blood Count 2.68 L Hemoglobin 8.2 L Hematocrit 25.3 L Mean Corpuscular Volume 94.4 Mean Corpuscular Hemoglobin 30.6 Mean Corpuscular Hemoglobin Concent 32.4 Red Cell Distribution Width 14.4 Platelet Count 485 H Mean Platelet Volume 9.9 Neutrophils % 75.1 Lymphocytes % 12.2 L Monocytes % 7.9 Eosinophils % 2.5 Basophils % 0.4 Nucleated Red Blood Cells % 0.0 Neutrophils # (Manual) 9.7 H Lymphocytes # 1.6 Monocytes # 1.0 H Eosinophils # 0.3 Basophils # 0.1 Nucleated Red Blood Cells # 0.0 Sodium Level 139 Potassium Level 3.7 Chloride Level 100 Carbon Dioxide Level 29 Anion Gap 14 Blood Urea Nitrogen 16 Creatinine 0.59 Glucose Level 168 Calcium Level 8.6 Phosphorus Level 2.4 L Magnesium Level 1.9 Medications Medications Current Medications Miscellaneous Information (Pending Santyl Order For Wound Care) This patient loaiza... PRN PRN XX WOUND CARE; Start 10/18/16 at 02:00 Hydralazine HCl 10 mg 10 mg Q6H PRN IV SBP>160 Last administered on 10/22/16 09:05; Admin Dose 10 MG; Start 10/18/16 at 11:00 Piperacillin Sod/ Tazobactam Sod (Zosyn 3.375gm/ 100 ml (Pmx)) 100 ml @ 200 mls /hr Q8 IVPB Last administered on 10/25/16 15:32; Admin Dose 200 MLS/HR; Start 10/18/16 at 14:00 Nystatin (Nystatin Powder) 1 applic BID TOP Last administered on 10/25/16 10: 37; Admin Dose 1 APPLIC; Start 10/18/16 at 21:00 Enoxaparin Sodium 40 mg 40 mg DAILY SC Last administered on 10/25/16 09:03; Admin Dose 40 MG; Start 10/19/16 at 13:00 Vancomycin HCl/ Sodium Chloride (Vancocin/NS) 150 ml @ 75 mls/hr Q12H IVPB Last administered on 10/25/16 12:53; Admin Dose 75 MLS/HR; Start 10/21/16 at 13 :00 Acetaminophen (Tylenol Liquid) 650 mg Q4H PRN NGT PAIN AND OR ELEVATED TEMP Last administered on 10/22/16 17:14; Admin Dose 650 MG; Start 10/22/16 at 12:30 Voriconazole (Vfend) 200 mg BID PO Last administered on 10/25/16 09:02; Admin Dose 200 MG; Start 10/22/16 at 21:30 Aspirin (Ecotrin) 325 mg BID PO Last administered on 10/25/16 09:02; Admin Dose 325 MG; Start 10/23/16 at 21:00 CHAD DAVIS Oct 25, 2016 16:12
--- NOTE | 2016-10-25 16:28 | CONS ---
Date/Time of Note Date/Time of Note DATE: 10/25/16 TIME: 16:19 Assessment/Plan Assessment/Plan Chief Complaint/Hosp Course SUBJECTIVE DATA: No acute changes. Patient looks comfortable. No fevers ANTIMICROBIALS: day #8 1. Vancomycin. 2. Zosyn. PHYSICAL EXAMINATION: GENERAL: Fragile, chronically ill-appearing elderly woman who is awake, in no distress. HEENT: Head atraumatic, normocephalic. Sclerae anicteric. Buccal mucosa dry. NECK: Supple. CHEST: Rise symmetrical. Breath sounds diminished at the bases. HEART: S1, S2. ABDOMEN: Soft, bowel sounds present. EXTREMITIES: No cyanosis. ASSESSMENT: 1. Resolving sepsis. 2. Status post acute respiratory failure, extubated 2 days ago. 3. Dysphagia. 4. Pneumonia, possibly aspiration type. 5. Resolving encephalopathy. 6. Dementia. 7. Recent right total knee replacement. PLAN: Patient remains stable. Continue present care, antibiotics. Continue anti-aspiration measures. DW staff Problems: Consultation Date/Type/Reason Admit Date/Time Oct 17, 2016 at 22:37 Initial Consult Date 10/20/16 Type of Consultation: id Exam/Review of Systems Vital Signs Vitals Vital Signs Date Time Temp Pulse Resp B/P Pulse Ox O2 Delivery O2 Flow Rate FiO2 10/25/16 15:13 99.1 65 18 151/65 98 10/25/16 13:40 3.0 10/25/16 08:00 Nasal Cannula 10/22/16 09:20 40 Intake and Output 10/24/16 10/24/16 10/25/16 15:00 23:00 07:00 Intake Total 620 ml 380 ml 700 ml Output Total 240 ml 450 ml 550 ml Balance 380 ml -70 ml 150 ml Results Result Diagram: 10/25/16 0703 10/25/16 0703 Results 24 hrs Laboratory Tests Test 10/25/16 00:30 10/25/16 07:03 Vancomycin Level Trough 11.3 White Blood Count 12.9 H Red Blood Count 2.68 L Hemoglobin 8.2 L Hematocrit 25.3 L Mean Corpuscular Volume 94.4 Mean Corpuscular Hemoglobin 30.6 Mean Corpuscular Hemoglobin Concent 32.4 Red Cell Distribution Width 14.4 Platelet Count 485 H Mean Platelet Volume 9.9 Neutrophils % 75.1 Lymphocytes % 12.2 L Monocytes % 7.9 Eosinophils % 2.5 Basophils % 0.4 Nucleated Red Blood Cells % 0.0 Neutrophils # (Manual) 9.7 H Lymphocytes # 1.6 Monocytes # 1.0 H Eosinophils # 0.3 Basophils # 0.1 Nucleated Red Blood Cells # 0.0 Sodium Level 139 Potassium Level 3.7 Chloride Level 100 Carbon Dioxide Level 29 Anion Gap 14 Blood Urea Nitrogen 16 Creatinine 0.59 Glucose Level 168 Calcium Level 8.6 Phosphorus Level 2.4 L Magnesium Level 1.9 Medications Medications Current Medications Miscellaneous Information (Pending Santyl Order For Wound Care) This patient loaiza... PRN PRN XX WOUND CARE; Start 10/18/16 at 02:00 Hydralazine HCl 10 mg 10 mg Q6H PRN IV SBP>160 Last administered on 10/22/16 09:05; Admin Dose 10 MG; Start 10/18/16 at 11:00 Piperacillin Sod/ Tazobactam Sod (Zosyn 3.375gm/ 100 ml (Pmx)) 100 ml @ 200 mls /hr Q8 IVPB Last administered on 10/25/16 15:32; Admin Dose 200 MLS/HR; Start 10/18/16 at 14:00 Nystatin (Nystatin Powder) 1 applic BID TOP Last administered on 10/25/16 10: 37; Admin Dose 1 APPLIC; Start 10/18/16 at 21:00 Enoxaparin Sodium 40 mg 40 mg DAILY SC Last administered on 10/25/16 09:03; Admin Dose 40 MG; Start 10/19/16 at 13:00 Vancomycin HCl/ Sodium Chloride (Vancocin/NS) 150 ml @ 75 mls/hr Q12H IVPB Last administered on 10/25/16 12:53; Admin Dose 75 MLS/HR; Start 10/21/16 at 13 :00 Acetaminophen (Tylenol Liquid) 650 mg Q4H PRN NGT PAIN AND OR ELEVATED TEMP Last administered on 10/22/16 17:14; Admin Dose 650 MG; Start 10/22/16 at 12:30 Voriconazole (Vfend) 200 mg BID PO Last administered on 10/25/16 09:02; Admin Dose 200 MG; Start 10/22/16 at 21:30 Aspirin (Ecotrin) 325 mg BID PO Last administered on 8/15/17at 09:02; Admin Dose 325 MG; Start 10/23/16 at 21:00 BOZENA BOSWELL NP Oct 25, 2016 16:28
[2016-10-26] VITALS (12 sets, daily range): BP systolic 117–160; BP diastolic 57–100; PULSE 79–97; RESP 17–18
[2016-10-26] MEDS: ALBUTEROL/IPRATROPIUM (NEB) 3 ML AMP HHN SCH ×6 (00:53→19:26)
[2016-10-26] MEDS: VANCOMYCIN 750 MG in SOD CHLORIDE 0.9% 150 ML IVPB SCH ×2 (01:18→13:33)
[2016-10-26] MEDS: PIPER-TAZO 3.375 GM IV (PMX) 100 ML IVPB SCH ×3 (05:44→21:17)
[2016-10-26 07:44] LABS: BASOPHIL # 0.1 10^3/ul (0.0-0.1); BASOPHILS % 0.5 % (0.0-2.0); EOSINOPHILS # 0.5 10^3/ul (0.0-0.5); EOSINOPHILS % 3.1 % (0.0-7.0); HEMATOCRIT 25.3 % (37.0-47.0); HEMOGLOBIN 8.1 g/dl (12.0-16.0); LYMPHOCYTES # 2.2 10^3/ul (0.8-2.9); LYMPHOCYTES % 15.1 % (15.0-51.0); MEAN CORPUSCULAR HEMOGLOBIN 30.3 pg (29.0-33.0); MEAN CORPUSCULAR VOLUME 94.8 fl (82.0-101.0); MEAN PLATELET VOLUME 10.1 fl (7.4-10.4); MONOCYTE # 1.2 10^3/ul (0.3-0.9); NEUTROPHILS % 72.6 % (39.0-77.0); PLATELET COUNT 460 10^3/UL (140-415); RED BLOOD COUNT 2.67 10^6/ul (4.20-5.40); RED CELL DISTRIBUTION WIDTH 14.3 % (11.5-14.5); WHITE BLOOD COUNT 14.8 10^3/ul (4.8-10.8)
[2016-10-26] MEDS: LEVOTHYROXINE 75 MCG TAB PO SCH (07:57)
[2016-10-26 08:12] LABS: CALCIUM 8.7 mg/dl (8.4-10.2); CREATININE 0.55 mg/dl (0.44-1.00); POTASSIUM 4.2 mmol/L (3.5-5.1)
[2016-10-26] MEDS: ASPIRIN (EC) 325 MG TAB PO SCH ×2 (09:04→21:17)
[2016-10-26] MEDS: VORICONAZOLE 200 MG TAB PO SCH ×2 (09:04→21:17)
[2016-10-26] MEDS: ENOXAPARIN 40 MG/0.4 ML SYG SC SCH (09:06)
[2016-10-26] MEDS: NYSTATIN 30 GM POWDER BTL TOP SCH ×2 (09:08→21:17)
[2016-10-26] MEDS: BALSAM PERU/CASTOR OIL 60 GM TUBE TOP SCH (09:08)
--- NOTE | 2016-10-26 11:24 | CONS ---
Date/Time of Note Date/Time of Note DATE: 10/26/16 TIME: 11:23 Consult Date/Type/Reason Admit Date/Time Oct 17, 2016 at 22:37 Initial Consult Date 10/20/16 Type of Consultation: Pulmonary Subjective Awake alert oriented comfortable this morning. Caregiver at bedside. Objective Vital Signs Date Time Temp Pulse Resp B/P Pulse Ox O2 Delivery O2 Flow Rate FiO2 10/26/16 08:45 Nasal Cannula 3.0 10/26/16 08:32 96 20 10/26/16 07:56 98.4 160/72 94 10/22/16 09:20 40 Intake and Output 10/25/16 10/25/16 10/26/16 14:59 22:59 06:59 Intake Total 910 ml 450 ml Output Total 400 ml 300 ml Balance 510 ml 150 ml Exam GENERAL: Elderly lady comfortable at rest VITAL SIGNS: per chart NECK: Supple. No JVD or lymphadenopathy. CARDIAC EXAM: S1, S2. No added sounds or murmurs. CHEST: Diminished air entry left base. ABDOMEN: Soft, nontender. No guarding or rebound. EXTREMITIES: No cyanosis, clubbing or edema. NEUROLOGIC: Generalized weakness. No focal deficits. Results/Medications Result Diagram: 10/26/1662610/26/1627 Results 24 hrs Laboratory Tests Test 10/26/16 06:27 White Blood Count 14.8 H Red Blood Count 2.67 L Hemoglobin 8.1 L Hematocrit 25.3 L Mean Corpuscular Volume 94.8 Mean Corpuscular Hemoglobin 30.3 Mean Corpuscular Hemoglobin Concent 32.0 Red Cell Distribution Width 14.3 Platelet Count 460 H Mean Platelet Volume 10.1 Neutrophils % 72.6 Lymphocytes % 15.1 Monocytes % 8.0 Eosinophils % 3.1 Basophils % 0.5 Nucleated Red Blood Cells % 0.0 Neutrophils # (Manual) 10.8 H Lymphocytes # 2.2 Monocytes # 1.2 H Eosinophils # 0.5 Basophils # 0.1 Nucleated Red Blood Cells # 0.0 Sodium Level 138 Potassium Level 4.2 Chloride Level 99 Carbon Dioxide Level 30 Anion Gap 13 Blood Urea Nitrogen 16 Creatinine 0.55 Glucose Level 105 # Calcium Level 8.7 Medications Current Medications Miscellaneous Information [facility] This patient loaiza... PRN PRN XX WOUND CARE; Start 10/18/16 at 02:00 Hydralazine HCl 10 mg 10 mg Q6H PRN IV SBP>160 Last administered on 10/22/16 09:05; Admin Dose 10 MG; Start 10/18/16 at 11:00 Piperacillin Sod/ Tazobactam Sod (Zosyn 3.375gm/ 100 ml (Pmx)) 100 ml @ 200 mls /hr Q8 IVPB Last administered on 10/26/16 05:44; Admin Dose 200 MLS/HR; Start 10/18/16 at 14:00 Nystatin (Nystatin Powder) 1 applic BID TOP Last administered on 10/26/16 09: 08; Admin Dose 1 APPLIC; Start 10/18/16 at 21:00 Enoxaparin Sodium 40 mg 40 mg DAILY SC Last administered on 10/26/16 09:06; Admin Dose 40 MG; Start 10/19/16 at 13:00 Vancomycin HCl/ Sodium Chloride (Vancocin/NS) 150 ml @ 75 mls/hr Q12H IVPB Last administered on 10/26/16 01:18; Admin Dose 75 MLS/HR; Start 10/21/16 at 13 :00 Acetaminophen (Tylenol Liquid) 650 mg Q4H PRN NGT PAIN AND OR ELEVATED TEMP Last administered on 10/22/16 17:14; Admin Dose 650 MG; Start 10/22/16 at 12:30 Voriconazole (Vfend) 200 mg BID PO Last administered on 10/26/16 09:04; Admin Dose 200 MG; Start 10/22/16 at 21:30 Aspirin (Ecotrin) 325 mg BID PO Last administered on 10/26/16 09:04; Admin Dose 325 MG; Start 10/23/16 at 21:00 Assessment/Plan Chief Complaint/Hosp Course Assessment 1. Status post hypoxemic respiratory failure, now extubated. 2. left lower lobe pneumonia. 3. History of progressive dementia 4. History of recent right total knee replacement 5. Hypokalemia Plan 1. Aspiration precautions. Pulmonary toilet. 2. Continue broad-spectrum antibiotic coverage 3. Speech therapy recommendations and aspiration precautions 4. DVT and GI prophylaxis 5. repeat chest x-ray. Will likely require snf facility placement. Problems: NEEALM RAMIREZ MD, [facility] Oct 26, 2016 11:24
[2016-10-26] MEDS: hydrALAzine 20 MG INJ IV PRN (12:02)
--- NOTE | 2016-10-26 16:08 | CONS ---
Date/Time of Note Date/Time of Note DATE: 10/26/16 TIME: 16:06 Assessment/Plan Assessment/Plan Chief Complaint/Hosp Course SUBJECTIVE DATA: No acute changes. Awake, tolerates pureed diet, however coughing after food intake, no fevers, nad, wants to go home ANTIMICROBIALS: day #9 1. Vancomycin. 2. Zosyn. 3. Vfend #5 Micro: sputum cx + mold PHYSICAL EXAMINATION: GENERAL: Fragile, chronically ill-appearing elderly woman who is awake, in no distress. HEENT: Head atraumatic, normocephalic. Sclerae anicteric. Buccal mucosa dry. NECK: Supple. CHEST: Rise symmetrical. Breath sounds diminished at the bases. HEART: S1, S2. ABDOMEN: Soft, bowel sounds present. EXTREMITIES: No cyanosis. ASSESSMENT: 1. Resolving sepsis. 2. Status post acute respiratory failure, extubated 2 days ago. 3. Dysphagia, poss ongoing aspiration. 4. Pneumonia, possibly aspiration type. 5. Resolving encephalopathy. 6. Dementia. 7. Recent right total knee replacement. PLAN: Patient remains stable. Will dc Vanco, continue Zosyn couple more days, continue Vfend, anti-aspiration measures. DW staff Problems: Consultation Date/Type/Reason Admit Date/Time Oct 17, 2016 at 22:37 Initial Consult Date 10/20/16 Type of Consultation: id Exam/Review of Systems Vital Signs Vitals Vital Signs Date Time Temp Pulse Resp B/P Pulse Ox O2 Delivery O2 Flow Rate FiO2 10/26/16 12:54 96 20 95 Nasal Cannula 3.0 10/26/16 12:46 117/57 10/26/16 11:40 98.2 10/22/16 09:20 40 Intake and Output 10/25/16 10/25/16 10/26/16 15:00 23:00 07:00 Intake Total 910 ml 450 ml Output Total 400 ml 300 ml Balance 510 ml 150 ml Results Result Diagram: 10/26/16 0627 10/26/16626 Results 24 hrs Laboratory Tests Test 10/26/16 06:27 White Blood Count 14.8 H Red Blood Count 2.67 L Hemoglobin 8.1 L Hematocrit 25.3 L Mean Corpuscular Volume 94.8 Mean Corpuscular Hemoglobin 30.3 Mean Corpuscular Hemoglobin Concent 32.0 Red Cell Distribution Width 14.3 Platelet Count 460 H Mean Platelet Volume 10.1 Neutrophils % 72.6 Lymphocytes % 15.1 Monocytes % 8.0 Eosinophils % 3.1 Basophils % 0.5 Nucleated Red Blood Cells % 0.0 Neutrophils # (Manual) 10.8 H Lymphocytes # 2.2 Monocytes # 1.2 H Eosinophils # 0.5 Basophils # 0.1 Nucleated Red Blood Cells # 0.0 Sodium Level 138 Potassium Level 4.2 Chloride Level 99 Carbon Dioxide Level 30 Anion Gap 13 Blood Urea Nitrogen 16 Creatinine 0.55 Glucose Level 105 # Calcium Level 8.7 Medications Medications Current Medications Miscellaneous Information (Pending [facility] Order For Wound Care) This patient loaiza... PRN PRN XX WOUND CARE; Start 10/18/16 at 02:00 Hydralazine HCl 10 mg 10 mg Q6H PRN IV SBP>160 Last administered on 10/26/16 12:02; Admin Dose 10 MG; Start 10/18/16 at 11:00 Piperacillin Sod/ Tazobactam Sod (Zosyn 3.375gm/ 100 ml (Pmx)) 100 ml @ 200 mls /hr Q8 IVPB Last administered on 10/26/16 15:03; Admin Dose 200 MLS/HR; Start 10/18/16 at 14:00 Nystatin (Nystatin Powder) 1 applic BID TOP Last administered on 10/26/16 09: 08; Admin Dose 1 APPLIC; Start 10/18/16 at 21:00 Enoxaparin Sodium 40 mg 40 mg DAILY SC Last administered on 10/26/16 09:06; Admin Dose 40 MG; Start 10/19/16 at 13:00 Vancomycin HCl/ Sodium Chloride (Vancocin/NS) 150 ml @ 75 mls/hr Q12H IVPB Last administered on 10/26/16 13:33; Admin Dose 75 MLS/HR; Start 10/21/16 at 13 :00 Acetaminophen (Tylenol Liquid) 650 mg Q4H PRN NGT PAIN AND OR ELEVATED TEMP Last administered on 10/22/16 17:14; Admin Dose 650 MG; Start 10/22/16 at 12:30 Voriconazole (Vfend) 200 mg BID PO Last administered on 10/26/16 09:04; Admin Dose 200 MG; Start 10/22/16 at 21:30 Aspirin (Ecotrin) 325 mg BID PO Last administered on 10/26/16t 09:04; Admin Dose 325 MG; Start 10/23/16 at 21:00 BOZENA BOSWELL NP Oct 26, 2016 16:08
--- NOTE | 2016-10-26 18:54 | PN ---
Date/Time of Note Date/Time of Note DATE: 10/26/16 TIME: 18:52 Assessment/Plan VTE Prophylaxis VTE Prophylaxis Intervention: LMWH Lines/Catheters IV Catheter Type (from Nrs): Peripheral IV Assessment/Plan Chief Complaint/Hosp Course #1 sepsis: Healthcare associated pneumonia versus aspiration pneumonia and urinary tract infection- on IV abx # acute resp failure due to HCAP-intubated on ventilator , s/p Extubation on 02/26 #2 Dementia - baseline #3 anemia: Normocytic anemia. At the current time we will continue to monitor this no signs of bleeding at this time. #4 hypothyroidism: Continue home medication #5 dysphagia: s/p dietary consult ,NG tube in place #6 H/o right knee replacement: #7 DVT and GI prophylaxis: lovenox , Protonix s/p Palliative care consult, Pulmonary has been following patient also Speech therapy has recommended pured diet, DC NG tube Talked to daughter today and patient is clear for DC back to home, patient daughter does not want to send back to facility Problems: Subjective 24 Hr Interval Summary Constitutional: disoriented Exam/Review of Systems Vital Signs Vitals Vital Signs Date Time Temp Pulse Resp B/P Pulse Ox O2 Delivery O2 Flow Rate FiO2 10/26/16 16:42 95 20 95 Nasal Cannula 3.0 10/26/16 16:09 98.6 150/67 10/22/16 09:20 40 Intake and Output 10/25/16 10/25/16 10/26/16 15:00 23:00 07:00 Intake Total 910 ml 450 ml Output Total 400 ml 300 ml Balance 510 ml 150 ml Exam Psych: confusion Respiratory: clear to auscultation Cardiovascular: regular rate and rhythm Gastrointestinal: soft, No distended Musculoskeletal: nl extremities to inspection Results Result Diagram: 10/26/1627 10/26/1627 Results 24 hrs Laboratory Tests Test 10/26/16 06:27 White Blood Count 14.8 H Red Blood Count 2.67 L Hemoglobin 8.1 L Hematocrit 25.3 L Mean Corpuscular Volume 94.8 Mean Corpuscular Hemoglobin 30.3 Mean Corpuscular Hemoglobin Concent 32.0 Red Cell Distribution Width 14.3 Platelet Count 460 H Mean Platelet Volume 10.1 Neutrophils % 72.6 Lymphocytes % 15.1 Monocytes % 8.0 Eosinophils % 3.1 Basophils % 0.5 Nucleated Red Blood Cells % 0.0 Neutrophils # (Manual) 10.8 H Lymphocytes # 2.2 Monocytes # 1.2 H Eosinophils # 0.5 Basophils # 0.1 Nucleated Red Blood Cells # 0.0 Sodium Level 138 Potassium Level 4.2 Chloride Level 99 Carbon Dioxide Level 30 Anion Gap 13 Blood Urea Nitrogen 16 Creatinine 0.55 Glucose Level 105 # Calcium Level 8.7 Medications Medications Current Medications Miscellaneous Information (Pending [facility] Order For Wound Care) This patient loaiza... PRN PRN XX WOUND CARE; Start 10/18/16 at 02:00 Hydralazine HCl 10 mg 10 mg Q6H PRN IV SBP>160 Last administered on 10/26/16 12:02; Admin Dose 10 MG; Start 10/18/16 at 11:00 Piperacillin Sod/ Tazobactam Sod (Zosyn 3.375gm/ 100 ml (Pmx)) 100 ml @ 200 mls /hr Q8 IVPB Last administered on 10/26/16 15:03; Admin Dose 200 MLS/HR; Start 10/18/16 at 14:00 Nystatin (Nystatin Powder) 1 applic BID TOP Last administered on 10/26/16 09: 08; Admin Dose 1 APPLIC; Start 10/18/16 at 21:00 Enoxaparin Sodium (Lovenox) 40 mg DAILY SC Last administered on 10/26/16 09:06 ; Admin Dose 40 MG; Start 10/19/16 at 13:00 Acetaminophen (Tylenol Liquid) 650 mg Q4H PRN NGT PAIN AND OR ELEVATED TEMP Last administered on 10/22/16 17:14; Admin Dose 650 MG; Start 10/22/16 at 12:30 Voriconazole (Vfend) 200 mg BID PO Last administered on 10/26/16 09:04; Admin Dose 200 MG; Start 10/22/16 at 21:30 Aspirin (Ecotrin) 325 mg BID PO Last administered on 10/26/16 09:04; Admin Dose 325 MG; Start 10/23/16 at 21:00 CHAD DAVIS Oct 26, 2016 18:54
[2016-10-27] VITALS (12 sets, daily range): BP systolic 112–179; BP diastolic 56–88; PULSE 68–84; RESP 18–19
[2016-10-27] MEDS: ALBUTEROL/IPRATROPIUM (NEB) 3 ML AMP HHN SCH ×6 (00:04→20:26)
[2016-10-27] MEDS: PIPER-TAZO 3.375 GM IV (PMX) 100 ML IVPB SCH ×3 (05:38→21:20)
[2016-10-27 07:30] LABS: BASOPHIL # 0.1 10^3/ul (0.0-0.1); BASOPHILS % 0.7 % (0.0-2.0); EOSINOPHILS # 0.7 10^3/ul (0.0-0.5); EOSINOPHILS % 6.1 % (0.0-7.0); HEMATOCRIT 26.1 % (37.0-47.0); HEMOGLOBIN 8.4 g/dl (12.0-16.0); LYMPHOCYTES # 1.9 10^3/ul (0.8-2.9); LYMPHOCYTES % 17.5 % (15.0-51.0); MEAN CORPUSCULAR HEMOGLOBIN 30.4 pg (29.0-33.0); MEAN CORPUSCULAR HGB CONC 32.2 g/dl (32.0-37.0); MEAN CORPUSCULAR VOLUME 94.6 fl (82.0-101.0); MEAN PLATELET VOLUME 10.1 fl (7.4-10.4); MONOCYTES % 9.3 % (0.0-11.0); NEUTROPHILS % 65.7 % (39.0-77.0); PLATELET COUNT 460 10^3/UL (140-415); RED BLOOD COUNT 2.76 10^6/ul (4.20-5.40); RED CELL DISTRIBUTION WIDTH 14.2 % (11.5-14.5); WHITE BLOOD COUNT 11.1 10^3/ul (4.8-10.8)
[2016-10-27 07:56] LABS: CALCIUM 8.8 mg/dl (8.4-10.2); CREATININE 0.62 mg/dl (0.44-1.00); MAGNESIUM 2.1 mg/dl (1.7-2.5); PHOSPHORUS 3.3 mg/dl (2.5-4.9); POTASSIUM 3.6 mmol/L (3.5-5.1)
[2016-10-27] MEDS: NYSTATIN 30 GM POWDER BTL TOP SCH ×2 (09:00→21:20)
[2016-10-27] MEDS: BALSAM PERU/CASTOR OIL 60 GM TUBE TOP SCH (09:00)
--- NOTE | 2016-10-27 09:30 | CONS ---
Date/Time of Note Date/Time of Note DATE: 10/27/16 TIME: 09:23 Assessment/Plan Assessment/Plan Additional Assessment/Plan Family conference with patient's daughter and extended family. First all family members have decided to continue with DO NOT RESUSCITATE and to explore hospice care preferably a hospice service at a palliative care arm. They have had experience with a hospice facility in the community that they would like to speak with once again. Voice for family members the daughter she has a clear understanding her mother's medical illness and she would like to pursue conservative care and to allow her mother to live at home with dignity. Her fears concerns cultural issues were discussed her past experience with her mother's major medical illnesses her major concern is quality of life for her mother at end of life. The mother's palliative care performance scale is 20%. Pain and symptom management was discussed social issues ethical issues were discussed patient's family discussing home with hospice care at this time and will follow up with us preferably today with social work service. Consultation Date/Type/Reason Admit Date/Time Oct 17, 2016 at 22:37 Initial Consult Date 10/20/16 Type of Consultation: Palliative care Exam/Review of Systems Vital Signs Vitals Vital Signs Date Time Temp Pulse Resp B/P Pulse Ox O2 Delivery O2 Flow Rate FiO2 10/27/16 07:09 98.6 86 19 169/81 99 10/27/16 04:10 Nasal Cannula 3.0 Intake and Output 10/26/16 10/26/16 10/27/16 15:00 23:00 07:00 Intake Total 1090 ml 550 ml Output Total 750 ml 700 ml Balance 340 ml -150 ml Results Result Diagram: 10/27/16 0655 10/27/16 0655 Results 24 hrs Laboratory Tests Test 10/27/16 06:55 White Blood Count 11.1 #H Red Blood Count 2.76 L Hemoglobin 8.4 L Hematocrit 26.1 L Mean Corpuscular Volume 94.6 Mean Corpuscular Hemoglobin 30.4 Mean Corpuscular Hemoglobin Concent 32.2 Red Cell Distribution Width 14.2 Platelet Count 460 H Mean Platelet Volume 10.1 Neutrophils % 65.7 Lymphocytes % 17.5 Monocytes % 9.3 Eosinophils % 6.1 Basophils % 0.7 Nucleated Red Blood Cells % 0.0 Neutrophils # (Manual) 7.3 Lymphocytes # 1.9 Monocytes # 1.0 H Eosinophils # 0.7 H Basophils # 0.1 Nucleated Red Blood Cells # 0.0 Sodium Level 138 Potassium Level 3.6 Chloride Level 98 Carbon Dioxide Level 30 Anion Gap 14 Blood Urea Nitrogen 13 Creatinine 0.62 Glucose Level 111 Calcium Level 8.8 Phosphorus Level 3.3 Magnesium Level 2.1 Medications Medications Current Medications Miscellaneous Information (Pending [facility] Order For Wound Care) This patient loaiza... PRN PRN XX WOUND CARE; Start 10/18/16 at 02:00 Hydralazine HCl 10 mg 10 mg Q6H PRN IV SBP>160 Last administered on 10/26/16 12:02; Admin Dose 10 MG; Start 10/18/16 at 11:00 Piperacillin Sod/ Tazobactam Sod (Zosyn 3.375gm/ 100 ml (Pmx)) 100 ml @ 200 mls /hr Q8 IVPB Last administered on 10/27/16 05:38; Admin Dose 200 MLS/HR; Start 10/18/16 at 14:00 Nystatin (Nystatin Powder) 1 applic BID TOP Last administered on 10/26/16 21: 17; Admin Dose 1 APPLIC; Start 10/18/16 at 21:00 Enoxaparin Sodium (Lovenox) 40 mg DAILY SC Last administered on 10/26/16 09:06 ; Admin Dose 40 MG; Start 10/19/16 at 13:00 Acetaminophen (Tylenol Liquid) 650 mg Q4H PRN NGT PAIN AND OR ELEVATED TEMP Last administered on 10/22/16 17:14; Admin Dose 650 MG; Start 10/22/16 at 12:30 Voriconazole (Vfend) 200 mg BID PO Last administered on 10/26/16 21:17; Admin Dose 200 MG; Start 10/22/16 at 21:30 Aspirin (Ecotrin) 325 mg BID PO Last administered on 10/26/16 21:17; Admin Dose 325 MG; Start 10/23/16 at 21:00 JUSTINE TRUJILLO Oct 27, 2016 09:30
[2016-10-27] MEDS: LEVOTHYROXINE 75 MCG TAB PO SCH (10:10)
[2016-10-27] MEDS: ASPIRIN (EC) 325 MG TAB PO SCH ×2 (10:10→21:19)
[2016-10-27] MEDS: VORICONAZOLE 200 MG TAB PO SCH ×2 (10:10→21:19)
[2016-10-27] MEDS: ENOXAPARIN 40 MG/0.4 ML SYG SC SCH (10:14)
--- NOTE | 2016-10-27 12:16 | CONS ---
Date/Time of Note Date/Time of Note DATE: 10/27/16 TIME: 12:15 Consult Date/Type/Reason Admit Date/Time Oct 17, 2016 at 22:37 Initial Consult Date 10/20/16 Type of Consultation: Pulmonary Subjective Remains comfortable. Objective Vital Signs Date Time Temp Pulse Resp B/P Pulse Ox O2 Delivery O2 Flow Rate FiO2 10/27/16 11:24 98.6 85 19 141/88 96 10/27/16 09:15 Nasal Cannula 3.0 Intake and Output 10/26/16 10/26/16 10/27/16 15:00 23:00 07:00 Intake Total 1090 ml 550 ml Output Total 750 ml 700 ml Balance 340 ml -150 ml Exam GENERAL: Elderly lady comfortable at rest VITAL SIGNS: per chart NECK: Supple. No JVD or lymphadenopathy. CARDIAC EXAM: S1, S2. No added sounds or murmurs. CHEST: Diminished air entry left base. ABDOMEN: Soft, nontender. No guarding or rebound. EXTREMITIES: No cyanosis, clubbing or edema. NEUROLOGIC: Generalized weakness. No focal deficits. Results/Medications Result Diagram: 10/27/16 0655 10/27/16 0655 Results 24 hrs Laboratory Tests Test 10/27/16 06:55 White Blood Count 11.1 #H Red Blood Count 2.76 L Hemoglobin 8.4 L Hematocrit 26.1 L Mean Corpuscular Volume 94.6 Mean Corpuscular Hemoglobin 30.4 Mean Corpuscular Hemoglobin Concent 32.2 Red Cell Distribution Width 14.2 Platelet Count 460 H Mean Platelet Volume 10.1 Neutrophils % 65.7 Lymphocytes % 17.5 Monocytes % 9.3 Eosinophils % 6.1 Basophils % 0.7 Nucleated Red Blood Cells % 0.0 Neutrophils # (Manual) 7.3 Lymphocytes # 1.9 Monocytes # 1.0 H Eosinophils # 0.7 H Basophils # 0.1 Nucleated Red Blood Cells # 0.0 Sodium Level 138 Potassium Level 3.6 Chloride Level 98 Carbon Dioxide Level 30 Anion Gap 14 Blood Urea Nitrogen 13 Creatinine 0.62 Glucose Level 111 Calcium Level 8.8 Phosphorus Level 3.3 Magnesium Level 2.1 Medications Current Medications Miscellaneous Information (Pending [facility] Order For Wound Care) This patient loaiza... PRN PRN XX WOUND CARE; Start 10/18/16 at 02:00 Hydralazine HCl 10 mg 10 mg Q6H PRN IV SBP>160 Last administered on 10/26/16 12:02; Admin Dose 10 MG; Start 10/18/16 at 11:00 Piperacillin Sod/ Tazobactam Sod (Zosyn 3.375gm/ 100 ml (Pmx)) 100 ml @ 200 mls /hr Q8 IVPB Last administered on 10/27/16 05:38; Admin Dose 200 MLS/HR; Start 10/18/16 at 14:00 Nystatin (Nystatin Powder) 1 applic BID TOP Last administered on 10/27/16 09: 00; Admin Dose 1 APPLIC; Start 10/18/16 at 21:00 Enoxaparin Sodium (Lovenox) 40 mg DAILY SC Last administered on 10/27/16 10:14 ; Admin Dose 40 MG; Start 10/19/16 at 13:00 Acetaminophen (Tylenol Liquid) 650 mg Q4H PRN NGT PAIN AND OR ELEVATED TEMP Last administered on 10/22/16 17:14; Admin Dose 650 MG; Start 10/22/16 at 12:30 Voriconazole (Vfend) 200 mg BID PO Last administered on 10/27/16 10:10; Admin Dose 200 MG; Start 10/22/16 at 21:30 Aspirin (Ecotrin) 325 mg BID PO Last administered on 10/27/16 10:10; Admin Dose 325 MG; Start 10/23/16 at 21:00 Assessment/Plan Chief Complaint/Hosp Course Assessment 1. Status post hypoxemic respiratory failure, now extubated. Stable on nasal cannula O2 2. left lower lobe pneumonia. 3. History of progressive dementia 4. History of recent right total knee replacement 5. Hypokalemia Plan 1. Aspiration precautions. Pulmonary toilet. 2. Continue broad-spectrum antibiotic coverage 3. Speech therapy recommendations and aspiration precautions 4. DVT and GI prophylaxis DC to SNF Problems: [facility]Z [facility], [facility] Oct 27, 2016 12:16
--- NOTE | 2016-10-27 14:08 | PN ---
Date/Time of Note Date/Time of Note DATE: 10/27/16 TIME: 14:07 Assessment/Plan VTE Prophylaxis VTE Prophylaxis Intervention: LMWH Lines/Catheters IV [facility] [place] Assessment/Plan Chief Complaint/Hosp Course #1 sepsis: Healthcare associated pneumonia versus aspiration pneumonia and urinary tract infection- on IV abx # acute resp failure due to HCAP-intubated on ventilator , s/p Extubation on 02/26 #2 Dementia - baseline #3 anemia: Normocytic anemia. At the current time we will continue to monitor this no signs of bleeding at this time. #4 hypothyroidism: Continue home medication #5 dysphagia: s/p dietary consult ,NG tube in place #6 H/o right knee replacement: #7 DVT and GI prophylaxis: lovenox , Protonix s/p Palliative care consult, Pulmonary has been following patient also Speech therapy has recommended pured diet, DC'dNG tube Plan is for DC back to home with palliative care, daughter does not want longterm placement healthcare consulting manager to arrange for DME's DC planning: Anticipate DC home in 1-2 days Problems: Subjective 24 Hr Interval Summary Constitutional: disoriented Exam/Review of Systems Vital Signs Vitals Vital Signs Date Time Temp Pulse Resp B/P Pulse Ox O2 Delivery O2 Flow Rate FiO2 10/27/16 12:39 89 18 97 Nasal Cannula 2.0 10/27/16 11:24 98.6 141/88 Intake and Output 10/26/16 10/26/16 10/27/16 15:00 23:00 07:00 Intake Total 1090 ml 550 ml Output Total 750 ml 700 ml Balance 340 ml -150 ml Exam Psych: confusion Respiratory: clear to auscultation Cardiovascular: regular rate and rhythm Gastrointestinal: soft, No distended Musculoskeletal: nl extremities to inspection Results Result Diagram: 10/27/16 0655 10/27/16 0655 Results 24 hrs Laboratory Tests Test 10/27/16 06:55 White Blood Count 11.1 #H Red Blood Count 2.76 L Hemoglobin 8.4 L Hematocrit 26.1 L Mean Corpuscular Volume 94.6 Mean Corpuscular Hemoglobin 30.4 Mean Corpuscular Hemoglobin Concent 32.2 Red Cell Distribution Width 14.2 Platelet Count 460 H Mean Platelet Volume 10.1 Neutrophils % 65.7 Lymphocytes % 17.5 Monocytes % 9.3 Eosinophils % 6.1 Basophils % 0.7 Nucleated Red Blood Cells % 0.0 Neutrophils # (Manual) 7.3 Lymphocytes # 1.9 Monocytes # 1.0 H Eosinophils # 0.7 H Basophils # 0.1 Nucleated Red Blood Cells # 0.0 Sodium Level 138 Potassium Level 3.6 Chloride Level 98 Carbon Dioxide Level 30 Anion Gap 14 Blood Urea Nitrogen 13 Creatinine 0.62 Glucose Level 111 Calcium Level 8.8 Phosphorus Level 3.3 Magnesium Level 2.1 Medications Medications Current Medications Misc[facility] This patient loaiza... PRN PRN XX WOUND CARE; Start 10/18/16 at 02:00 Hydralazine HCl 10 mg 10 mg Q6H PRN IV SBP>160 Last administered on 10/26/16 12:02; Admin Dose 10 MG; Start 10/18/16 at 11:00 Piperacillin Sod/ Tazobactam Sod (Zosyn 3.375gm/ 100 ml (Pmx)) 100 ml @ 200 mls /hr Q8 IVPB Last administered on 10/27/16 13:48; Admin Dose 200 MLS/HR; Start 10/18/16 at 14:00 Nystatin (Nystatin Powder) 1 applic BID TOP Last administered on 10/27/16 09: 00; Admin Dose 1 APPLIC; Start 10/18/16 at 21:00 Enoxaparin Sodium (Lovenox) 40 mg DAILY SC Last administered on 10/27/16 10:14 ; Admin Dose 40 MG; Start 10/19/16 at 13:00 Acetaminophen (Tylenol Liquid) 650 mg Q4H PRN NGT PAIN AND OR ELEVATED TEMP Last administered on 10/22/16 17:14; Admin Dose 650 MG; Start 10/22/16 at 12:30 Voriconazole (Vfend) 200 mg BID PO Last administered on 10/27/16 10:10; Admin Dose 200 MG; Start 10/22/16 at 21:30 Aspirin (Ecotrin) 325 mg BID PO Last administered on 10/27/16 10:10; Admin Dose 325 MG; Start 10/23/16 at 21:00 CHAD DAVIS Oct 27, 2016 14:08
--- NOTE | 2016-10-27 15:04 | CONS ---
Date/Time of Note Date/Time of Note DATE: 10/27/16 TIME: 15:02 Assessment/Plan Assessment/Plan Chief Complaint/Hosp Course SUBJECTIVE DATA: No acute changes. Awake, family at bedside, no fevers, nad ANTIMICROBIALS: day #10 1. Zosyn. 2. Vfend #6 Micro: sputum cx + mold PHYSICAL EXAMINATION: GENERAL: Fragile, chronically ill-appearing elderly woman who is awake, in no distress. HEENT: Head atraumatic, normocephalic. Sclerae anicteric. Buccal mucosa dry. NECK: Supple. CHEST: Rise symmetrical. Breath sounds diminished at the bases. HEART: S1, S2. ABDOMEN: Soft, bowel sounds present. EXTREMITIES: No cyanosis. ASSESSMENT: 1. Resolving sepsis. 2. Status post acute respiratory failure, extubated 3. Dysphagia, poss ongoing aspiration. 4. Pneumonia, possibly aspiration type. 5. Resolving encephalopathy. 6. Dementia. 7. Recent right total knee replacement. PLAN: Patient remains stable. Will continue Zosyn for couple more days, continue Vfend, anti-aspiration measures. DW staff Problems: Consultation Date/Type/Reason Admit Date/Time Oct 17, 2016 at 22:37 Initial Consult Date 10/20/16 Type of Consultation: ID Exam/Review of Systems Vital Signs Vitals Vital Signs Date Time Temp Pulse Resp B/P Pulse Ox O2 Delivery O2 Flow Rate FiO2 10/27/16 12:39 89 18 97 Nasal Cannula 2.0 10/27/16 11:24 98.6 141/88 Intake and Output 10/26/16 10/26/16 10/27/16 15:00 23:00 07:00 Intake Total 1090 ml 550 ml Output Total 750 ml 700 ml Balance 340 ml -150 ml Results Result Diagram: 10/27/16 0655 10/27/16 0655 Results 24 hrs Laboratory Tests Test 10/27/16 06:55 White Blood Count 11.1 #H Red Blood Count 2.76 L Hemoglobin 8.4 L Hematocrit 26.1 L Mean Corpuscular Volume 94.6 Mean Corpuscular Hemoglobin 30.4 Mean Corpuscular Hemoglobin Concent 32.2 Red Cell Distribution Width 14.2 Platelet Count 460 H Mean Platelet Volume 10.1 Neutrophils % 65.7 Lymphocytes % 17.5 Monocytes % 9.3 Eosinophils % 6.1 Basophils % 0.7 Nucleated Red Blood Cells % 0.0 Neutrophils # (Manual) 7.3 Lymphocytes # 1.9 Monocytes # 1.0 H Eosinophils # 0.7 H Basophils # 0.1 Nucleated Red Blood Cells # 0.0 Sodium Level 138 Potassium Level 3.6 Chloride Level 98 Carbon Dioxide Level 30 Anion Gap 14 Blood Urea Nitrogen 13 Creatinine 0.62 Glucose Level 111 Calcium Level 8.8 Phosphorus Level 3.3 Magnesium Level 2.1 Medications Medications Current Medications Miscellaneous Information ([facility] This patient loaiza... PRN PRN XX WOUND CARE; Start 10/18/16 at 02:00 Hydralazine HCl 10 mg 10 mg Q6H PRN IV SBP>160 Last administered on 10/26/16 12:02; Admin Dose 10 MG; Start 10/18/16 at 11:00 Piperacillin Sod/ Tazobactam Sod (Zosyn 3.375gm/ 100 ml (Pmx)) 100 ml @ 200 mls /hr Q8 IVPB Last administered on 10/27/16 13:48; Admin Dose 200 MLS/HR; Start 10/18/16 at 14:00 Nystatin (Nystatin Powder) 1 applic BID TOP Last administered on 10/27/16 09: 00; Admin Dose 1 APPLIC; Start 10/18/16 at 21:00 Enoxaparin Sodium (Lovenox) 40 mg DAILY SC Last administered on 10/27/16 10:14 ; Admin Dose 40 MG; Start 10/19/16 at 13:00 Acetaminophen (Tylenol Liquid) 650 mg Q4H PRN NGT PAIN AND OR ELEVATED TEMP Last administered on 10/22/16 17:14; Admin Dose 650 MG; Start 10/22/16 at 12:30 Voriconazole (Vfend) 200 mg BID PO Last administered on 10/27/16 10:10; Admin Dose 200 MG; Start 10/22/16 at 21:30 Aspirin (Ecotrin) 325 mg BID PO Last administered on 10/27/16 10:10; Admin Dose 325 MG; Start 10/23/16 at 21:00 BOZENA BOSWELL NP Oct 27, 2016 15:04
[2016-10-27] MEDS: hydrALAzine 20 MG INJ IV PRN (15:51)
[2016-10-28] VITALS (10 sets, daily range): BP systolic 129–151; BP diastolic 55–69; PULSE 81–90; RESP 15–19
[2016-10-28] MEDS: ALBUTEROL/IPRATROPIUM (NEB) 3 ML AMP HHN SCH ×6 (00:01→21:00)
[2016-10-28] MEDS: PIPER-TAZO 3.375 GM IV (PMX) 100 ML IVPB SCH ×2 (06:21→14:43)
[2016-10-28 06:53] LABS: BASOPHIL # 0.1 10^3/ul (0.0-0.1); BASOPHILS % 0.5 % (0.0-2.0); EOSINOPHILS # 0.5 10^3/ul (0.0-0.5); EOSINOPHILS % 4.4 % (0.0-7.0); HEMATOCRIT 25.1 % (37.0-47.0); HEMOGLOBIN 8.3 g/dl (12.0-16.0); LYMPHOCYTES % 17.4 % (15.0-51.0); MEAN CORPUSCULAR HEMOGLOBIN 31.4 pg (29.0-33.0); MEAN CORPUSCULAR HGB CONC 33.1 g/dl (32.0-37.0); MEAN CORPUSCULAR VOLUME 95.1 fl (82.0-101.0); MEAN PLATELET VOLUME 10.2 fl (7.4-10.4); MONOCYTE # 1.2 10^3/ul (0.3-0.9); MONOCYTES % 10.6 % (0.0-11.0); NEUTROPHILS % 66.3 % (39.0-77.0); PLATELET COUNT 461 10^3/UL (140-415); RED BLOOD COUNT 2.64 10^6/ul (4.20-5.40); RED CELL DISTRIBUTION WIDTH 14.1 % (11.5-14.5); WHITE BLOOD COUNT 11.4 10^3/ul (4.8-10.8)
[2016-10-28 07:27] LABS: T3 UPTAKE 42.4 % (23.5-40.5)
[2016-10-28] MEDS: LEVOTHYROXINE 75 MCG TAB PO SCH (07:48)
[2016-10-28] MEDS: NYSTATIN 30 GM POWDER BTL TOP SCH (08:12)
[2016-10-28] MEDS: VORICONAZOLE 200 MG TAB PO SCH (08:13)
[2016-10-28] MEDS: BALSAM PERU/CASTOR OIL 60 GM TUBE TOP SCH (08:13)
[2016-10-28] MEDS: ASPIRIN (EC) 325 MG TAB PO SCH (08:13)
[2016-10-28] MEDS: ENOXAPARIN 40 MG/0.4 ML SYG SC SCH (08:16)
--- NOTE | 2016-10-28 11:23 | CONS ---
Date/Time of Note Date/Time of Note DATE: 10/28/16 TIME: 11:22 Assessment/Plan Assessment/Plan Additional Assessment/Plan She looks very comfortable today without nausea vomiting she smiling . Caregivers at the bedside states that patient has no major new complaints. Consultation Date/Type/Reason Admit Date/Time Oct 17, 2016 at 22:37 Initial Consult Date 10/20/16 Type of Consultation: ID Exam/Review of Systems Vital Signs Vitals Vital Signs Date Time Temp Pulse Resp B/P Pulse Ox O2 Delivery O2 Flow Rate FiO2 10/28/16 10:09 96 2.0 10/28/16 10:09 86 20 Nasal Cannula 10/28/16 06:58 98.6 136/61 Intake and Output 10/27/16 10/27/16 10/28/16 15:00 23:00 07:00 Intake Total 1700 ml 600 ml Output Total 2500 ml 700 ml Balance -800 ml -100 ml Exam Neurological: [employer] II-XII intact, nl mental status, nl speech, nl strength, No DTR's symmetric, No confused, No focal weakness, No lethargic, No numbness , No other, No reflexes, No unresponsive Results Result Diagram: 10/28/16 0615 10/27/16 0655 Results 24 hrs Laboratory Tests Test 10/28/16 06:15 White Blood Count 11.4 H Red Blood Count 2.64 L Hemoglobin 8.3 L Hematocrit 25.1 L Mean Corpuscular Volume 95.1 Mean Corpuscular Hemoglobin 31.4 Mean Corpuscular Hemoglobin Concent 33.1 Red Cell Distribution Width 14.1 Platelet Count 461 H Mean Platelet Volume 10.2 Neutrophils % 66.3 Lymphocytes % 17.4 Monocytes % 10.6 Eosinophils % 4.4 Basophils % 0.5 Nucleated Red Blood Cells % 0.0 Neutrophils # (Manual) 8 H Lymphocytes # 2.0 Monocytes # 1.2 H Eosinophils # 0.5 Basophils # 0.1 Nucleated Red Blood Cells # 0.0 Free Thyroxine Index 2.54 Thyroxine (T4) 6.0 Triiodothyronine (T3) Uptake 42.4 H Random Cortisol 15.4 Medications Medications Current Medications Miscellaneous Information ([facility] This patient loaiza... PRN PRN XX WOUND CARE; Start 10/18/16 at 02:00 Hydralazine HCl 10 mg 10 mg Q6H PRN IV SBP>160 Last administered on 10/27/16 15:51; Admin Dose 10 MG; Start 10/18/16 at 11:00 Piperacillin Sod/ Tazobactam Sod (Zosyn 3.375gm/ 100 ml (Pmx)) 100 ml @ 200 mls /hr Q8 IVPB Last administered on 10/28/16 06:21; Admin Dose 200 MLS/HR; Start 10/18/16 at 14:00 Nystatin (Nystatin Powder) 1 applic BID TOP Last administered on 10/28/16 08: 12; Admin Dose 1 APPLIC; Start 10/18/16 at 21:00 Enoxaparin Sodium (Lovenox) 40 mg DAILY SC Last administered on 10/28/16 08:16 ; Admin Dose 40 MG; Start 10/19/16 at 13:00 Acetaminophen (Tylenol Liquid) 650 mg Q4H PRN NGT PAIN AND OR ELEVATED TEMP Last administered on 10/22/16 17:14; Admin Dose 650 MG; Start 10/22/16 at 12:30 Voriconazole (Vfend) 200 mg BID PO Last administered on 10/28/16 08:13; Admin Dose 200 MG; Start 10/22/16 at 21:30 Aspirin (Ecotrin) 325 mg BID PO Last administered on 10/28/16 08:13; Admin Dose 325 MG; Start 10/23/16 at 21:00 JUSTINE TRUJILLO Oct 28, 2016 11:23
--- NOTE | 2016-10-28 12:03 | CONS ---
Date/Time of Note Date/Time of Note DATE: 10/28/16 TIME: 12:03 Consult Date/Type/Reason Admit Date/Time Oct 17, 2016 at 22:37 Initial Consult Date 10/20/16 Type of Consultation: Pulmonary Subjective No new events. Objective Vital Signs Date Time Temp Pulse Resp B/P Pulse Ox O2 Delivery O2 Flow Rate FiO2 10/28/16 11:25 98.0 91 18 132/63 95 10/28/16 10:09 2.0 10/28/16 10:09 Nasal Cannula Intake and Output 10/27/16 10/27/16 10/28/16 14:59 22:59 06:59 Intake Total 1700 ml 600 ml Output Total 2500 ml 700 ml Balance -800 ml -100 ml Exam GENERAL: Elderly lady comfortable at rest VITAL SIGNS: per chart NECK: Supple. No JVD or lymphadenopathy. CARDIAC EXAM: S1, S2. No added sounds or murmurs. CHEST: Diminished air entry left base. ABDOMEN: Soft, nontender. No guarding or rebound. EXTREMITIES: No cyanosis, clubbing or edema. NEUROLOGIC: Generalized weakness. No focal deficits. Results/Medications Result Diagram: 10/28/16 0615 10/27/16 0655 Results 24 hrs Laboratory Tests Test 10/28/16 06:15 White Blood Count 11.4 H Red Blood Count 2.64 L Hemoglobin 8.3 L Hematocrit 25.1 L Mean Corpuscular Volume 95.1 Mean Corpuscular Hemoglobin 31.4 Mean Corpuscular Hemoglobin Concent 33.1 Red Cell Distribution Width 14.1 Platelet Count 461 H Mean Platelet Volume 10.2 Neutrophils % 66.3 Lymphocytes % 17.4 Monocytes % 10.6 Eosinophils % 4.4 Basophils % 0.5 Nucleated Red Blood Cells % 0.0 Neutrophils # (Manual) 8 H Lymphocytes # 2.0 Monocytes # 1.2 H Eosinophils # 0.5 Basophils # 0.1 Nucleated Red Blood Cells # 0.0 Free Thyroxine Index 2.54 Thyroxine (T4) 6.0 Triiodothyronine (T3) Uptake 42.4 H Random Cortisol 15.4 Medications Current Medications Miscellaneous Information (Pending [facility] Order For Wound Care) This patient loaiza... PRN PRN XX WOUND CARE; Start 10/18/16 at 02:00 Hydralazine HCl 10 mg 10 mg Q6H PRN IV SBP>160 Last administered on 10/27/16 15:51; Admin Dose 10 MG; Start 10/18/16 at 11:00 Piperacillin Sod/ Tazobactam Sod (Zosyn 3.375gm/ 100 ml (Pmx)) 100 ml @ 200 mls /hr Q8 IVPB Last administered on 10/28/16 06:21; Admin Dose 200 MLS/HR; Start 10/18/16 at 14:00 Nystatin (Nystatin Powder) 1 applic BID TOP Last administered on 10/28/16 08: 12; Admin Dose 1 APPLIC; Start 10/18/16 at 21:00 Enoxaparin Sodium (Lovenox) 40 mg DAILY SC Last administered on 10/28/16 08:16 ; Admin Dose 40 MG; Start 10/19/16 at 13:00 Acetaminophen (Tylenol Liquid) 650 mg Q4H PRN NGT PAIN AND OR ELEVATED TEMP Last administered on 10/22/16 17:14; Admin Dose 650 MG; Start 10/22/16 at 12:30 Voriconazole (Vfend) 200 mg BID PO Last administered on 10/28/16 08:13; Admin Dose 200 MG; Start 10/22/16 at 21:30 Aspirin (Ecotrin) 325 mg BID PO Last administered on 10/28/16 08:13; Admin Dose 325 MG; Start 10/23/16 at 21:00 Assessment/Plan Chief Complaint/Hosp Course Assessment 1. Status post hypoxemic respiratory failure, now extubated. Stable on nasal cannula O2 2. left lower lobe pneumonia. 3. History of progressive dementia 4. History of recent right total knee replacement 5. Hypokalemia Plan 1. Aspiration precautions. Pulmonary toilet. 2. Continue broad-spectrum antibiotic coverage 3. Speech therapy recommendations and aspiration precautions 4. DVT and GI prophylaxis DC planning Problems: NEELAM RAMIREZ MD, [facility] Oct 28, 2016 12:03
--- NOTE | 2016-10-28 14:55 | CONS ---
Date/Time of Note Date/Time of Note DATE: 10/28/16 TIME: 14:54 Assessment/Plan Assessment/Plan Chief Complaint/Hosp Course SUBJECTIVE DATA: No acute changes per report. Patient is sleeping, mold clamper at bedside, no fevers overnight, looks comfortable. Awake, family at bedside, no fevers, nad ANTIMICROBIALS: day #11 1. Zosyn. 2. Vfend #7 Micro: sputum cx + mold PHYSICAL EXAMINATION: GENERAL: Fragile, chronically ill-appearing elderly woman who is awake, in no distress. HEENT: Head atraumatic, normocephalic. Sclerae anicteric. Buccal mucosa dry. NECK: Supple. CHEST: Rise symmetrical. Breath sounds diminished at the bases. HEART: S1, S2. ABDOMEN: Soft, bowel sounds present. EXTREMITIES: No cyanosis. ASSESSMENT: 1. Resolving sepsis. 2. Status post acute respiratory failure, extubated 3. Dysphagia, poss ongoing aspiration. 4. Pneumonia, possibly aspiration type. 5. Resolving encephalopathy. 6. Dementia. 7. Recent right total knee replacement. PLAN: Patient remains stable. We will discontinue Zosyn, continue Vfend, anti -aspiration measures, repeat cultures as needed. DW staff Problems: Consultation Date/Type/Reason Admit Date/Time Oct 17, 2016 at 22:37 Initial Consult Date 10/20/16 Type of Consultation: id Exam/Review of Systems Vital Signs Vitals Vital Signs Date Time Temp Pulse Resp B/P Pulse Ox O2 Delivery O2 Flow Rate FiO2 10/28/16 13:04 86 20 97 Nasal Cannula 2.0 10/28/16 11:25 98.0 132/63 Intake and Output 10/27/16 10/27/16 10/28/16 15:00 23:00 07:00 Intake Total 1700 ml 600 ml Output Total 2500 ml 700 ml Balance -800 ml -100 ml Results Result Diagram: 10/28/16 0615 10/27/16 0655 Results 24 hrs Laboratory Tests Test 10/28/16 06:15 White Blood Count 11.4 H Red Blood Count 2.64 L Hemoglobin 8.3 L Hematocrit 25.1 L Mean Corpuscular Volume 95.1 Mean Corpuscular Hemoglobin 31.4 Mean Corpuscular Hemoglobin Concent 33.1 Red Cell Distribution Width 14.1 Platelet Count 461 H Mean Platelet Volume 10.2 Neutrophils % 66.3 Lymphocytes % 17.4 Monocytes % 10.6 Eosinophils % 4.4 Basophils % 0.5 Nucleated Red Blood Cells % 0.0 Neutrophils # (Manual) 8 H Lymphocytes # 2.0 Monocytes # 1.2 H Eosinophils # 0.5 Basophils # 0.1 Nucleated Red Blood Cells # 0.0 Free Thyroxine Index 2.54 Thyroxine (T4) 6.0 Triiodothyronine (T3) Uptake 42.4 H Random Cortisol 15.4 Medications Medications Current Medications Miscellaneous Information ([facility] This patient loaiza... PRN PRN XX WOUND CARE; Start 10/18/16 at 02:00 Hydralazine HCl 10 mg 10 mg Q6H PRN IV SBP>160 Last administered on 10/27/16 15:51; Admin Dose 10 MG; Start 10/18/16 at 11:00 Piperacillin Sod/ Tazobactam Sod (Zosyn 3.375gm/ 100 ml (Pmx)) 100 ml @ 200 mls /hr Q8 IVPB Last administered on 10/28/16 14:43; Admin Dose 200 MLS/HR; Start 10/18/16 at 14:00 Nystatin (Nystatin Powder) 1 applic BID TOP Last administered on 10/28/16 08: 12; Admin Dose 1 APPLIC; Start 10/18/16 at 21:00 Enoxaparin Sodium (Lovenox) 40 mg DAILY SC Last administered on 10/28/16 08:16 ; Admin Dose 40 MG; Start 10/19/16 at 13:00 Acetaminophen (Tylenol Liquid) 650 mg Q4H PRN NGT PAIN AND OR ELEVATED TEMP Last administered on 10/22/16 17:14; Admin Dose 650 MG; Start 10/22/16 at 12:30 Voriconazole (Vfend) 200 mg BID PO Last administered on 10/28/16 08:13; Admin Dose 200 MG; Start 10/22/16 at 21:30 Aspirin (Ecotrin) 325 mg BID PO Last administered on 10/28/16 08:13; Admin Dose 325 MG; Start 10/23/16 at 21:00 BOZENA BOSWELL NP Oct 28, 2016 14:55
--- NOTE | 2016-10-29 13:54 | DS ---
Date/Time of Note Date/Time of Note DATE: 10/29/16 TIME: 13:43 Discharge Summary Admission/Discharge Info Admit Date/Time Oct 17, 2016 at 22:37 Discharge Date/Time Oct 28, 2016 at 21:10 Discharge Diagnosis #1 sepsis secondary to aspiration pneumonia and urinary tract infection status post IV antibiotics # acute resp failure due to HCAP-intubated on ventilator , s/p Extubation on 02/26 #2 Dementia - baseline, patient to be followed by [facility] palliative care #3 anemia: Normocytic anemia. At the current time we will continue to monitor this no signs of bleeding at this time. #4 hypothyroidism: Continue home medication #5 dysphagia: Status post speech therapy evaluation with recommendations for pur ed diet #6 H/o right knee replacement: Patient Condition: Fair Hospital Course Patient is an 86-year-old female with a known history of dementia at baseline alert to person but not to place or time. Patient was residing at [facility] prior to hospitalization was recovering from a right total knee replacement. Patient had presented with confusion and difficulty breathing and patient was found to be hypoxic and hypotensive, patient was found to have pneumonia and UTI. Patient was ultimately intubated and admitted to the ICU. Patient was treated for sepsis with antibiotics IV fluids condition ultimately improved with resolution of sepsis and patient was ultimately extubated. Patient initially was unable to tolerate a p.o. diet secondary to aspiration risk but as condition improved subsequent speech therapy evaluation recommendation was for pured diet and patient's NG tube was DC'd and was started on a pured diet. Family did not want patient to return to nursing facility and wanted patient to be discharged home with caregivers and [facility] for palliative care. clinical manager did arrange for multiple DME's arrived patient's home. The day of discharge patient's condition was felt to be stable with resolution of her sepsis. Patient's respiratory function was baseline as was her mentation. Patient was hemodynamically stable and there were no other acute issues that required hospitalization. On the day of discharge patient's vitals, labs and physical exam are stable, questions of the family members are answered the patient had no other acute issues. Of note patient's Robertson was kept in on discharge as the patient reportedly has a history of urinary retention. Family was told that her home healthcare agency should do a trial of removing the Robertson and evaluating for urinary retention within the month. Home Meds Reported Medications Ipratropium-Albuterol (Ipratropium-Albuterol) 0.5-3 Mg/3 Ml Ampul.neb, 3 ML INHALATION Q6 Y for SHORTNESS OF BREATH, #30 VIAL 10/17/16 Ascorbic Acid* (Vitamin C*) 500 Mg Capsule.sa, 500 MG PO DAILY, CAP 10/13/16 Tramadol HCl (Tramadol HCl) 50 Mg Tablet, 50 MG PO Q6H Y for PAIN 4-10/10, #120 TAB 10/13/16 Acetaminophen* (Tylenol*) 325 Mg Tablet, 650 MG PO Q6H Y for MILD PAIN LEVEL 1-3 , TAB FOR FEVER>101 10/13/16 Sennosides* (Senna Lax*) 8.6 Mg Tablet, 2 TAB PO QHS Y for CONSTIPATION, TAB 10/13/16 Risperidone* (Risperdal*) 0.5 Mg Tablet, 0.5 MG PO Q12H, TAB 10/13/16 Protein Supplement (Promod) 946 Ml Liquid, 30 ML PO TID 10/13/16 Nystatin (Nystatin) 100,000 Unit/1 Ml Oral.susp, 5 ML PO TID, #60 ML START DATE 10/13/16,END DATE 10/20/16 10/13/16 Multivitamin with Minerals (Multivitamins with Minerals) 1 Each Tablet, 1 EACH PO DAILY, TAB 10/13/16 Polyethylene Glycol* (Miralax*) 17 Gm Powd.pack, 17 GM PO BID, #60 PACKET 10/13/16 Levothyroxine Sodium* (Levothyroxine Sodium*) 75 Mcg Tablet, 75 MCG PO BEFORE BREAKFAST, #30 TAB 10/13/16 Lactulose* (Lactulose*) 20 Gm/30 Ml Solution, 20 GM PO Q48H, ML 10/13/16 Sod Phosphate/Sod Biphosphate* (Fleet* Enema Pediatric) 66.6 Ml Soln, 66.6 ML NV Q72H Y for CONSTIPATION, ENEMA 10/13/16 Ferrous Sulfate* (Ferrous Sulfate*) 325 Mg Tabec, 325 MG PO DAILY, TAB END DATE 11/10/16 10/13/16 Bisacodyl* (Bisacodyl*) 10 Mg Supp, 10 MG NV Q48H, SUPP 10/13/16 Clotrimazole* (Clotrimazole* AF) 1% - 30 Gm Cream.gm., 1 APPLIC TOP Q24H, TUB 10/13/16 Bethanechol Chloride* (Bethanechol Chloride*) 10 Mg Tablet, 10 MG PO Q2H, TAB 10/13/16 Betamethasone Dipropionate* (Betamethasone Dipropionate*) 0.05% - 15 Gm Oint, 1 APPLIC TOP Q24H, TUB APPLY TO: 10/13/16 Aspirin (Aspirin) 325 Mg Tablet.dr, 325 MG PO BID 10/13/16 Tolnaftate (ANTIFUNGAL) 150.2 Gm [place], 150.2 GM TP DAILY, SPRAY 10/13/16 Discontinued Reported Medications Tuberculin,Purif.prot.deriv. (Tubersol) 5 Tub Unit/0.1 Ml Vial, 5 TUB ID QHS, VIAL INJECT 0.1ML AT QHS FOR TB SCREENING FOR 1 DAY 2ND STEP PPD.END DATE 10/18/16 10/13/16 Discontinued Scripts Azithromycin* (Zithromax*) 250 Mg Tablet, 250 MG PO .ISSA DIRECTED, #6 TAB TAKE 500 MG (2 TABS) THE FIRST DAY THEN 250 MG (1 TAB) DAYS 2-5 Prov:CATHIE CAICEDO MD 10/13/16 Follow-up Plan Follow-up with [facility] for palliative care/hospice and PCP Primary Care Provider Not On Staff Doctor Time spent on discharge: > 30 minutes CHAD DAVIS Oct 29, 2016 13:53
[2016-10-29] MEDS ORDERED: ALBU2.5V3 NEB (14:39)
[2016-10-29] MEDS ORDERED: LEVO750T25 PO (14:39)
[2016-11-01 15:58] LABS: TB-NIL 0.01 IU/mL
== END 2016-10-28 21:10 | disposition home health service (06) | DRG 871 ==
LOC: E/R 20:04 → TEL 22:37 → ICU 10-18 16:57 → TEL 10-24 14:32
PROVIDERS: ADMIT Family Medicine; ATTEND Family Medicine
PROC: 0BH17EZ Insertion of Endotracheal Airway into Trachea, Via Natural or Artificial Opening (ICD-10-PCS; principal; 2016-10-20)
PROC: 5A1945Z Respiratory Ventilation, 24-96 Consecutive Hours (ICD-10-PCS; 2016-10-20)
DX: A41.9 Sepsis, unspecified organism (principal); J69.0 Pneumonitis due to inhalation of food and vomit; J96.00 Acute respiratory failure, unspecified whether with hypoxia or hypercapnia; R65.21 Severe sepsis with septic shock; J18.9 Pneumonia, unspecified organism; G92 Toxic encephalopathy; L89.212 Pressure ulcer of right hip, stage 2; L89.222 Pressure ulcer of left hip, stage 2; L89.153 Pressure ulcer of sacral region, stage 3; N39.0 Urinary tract infection, site not specified; F03.90 Unspecified dementia, unspecified severity, without behavioral disturbance, psychotic disturbance, mood disturbance, and anxiety; D64.9 Anemia, unspecified; E03.9 Hypothyroidism, unspecified; R13.10 Dysphagia, unspecified; Z96.651 Presence of right artificial knee joint; E87.6 Hypokalemia; Z66 Do not resuscitate
CPT/HCPCS: 36600; 70450; 71010; 74000; 80048; 80053; 80202; 81001; 82150; 82533; 82803; 83605; 83690; 83735; 83880; 84100; 84436; 84479; 84484; 85025; 85610; 85730; 86480; 87040; 87070; 87081; 87086; 89220; 92526; 92610; 93005; 94002; 94003; 94640; 94660; 94664; 94770; 96361; 96365; 96375; J0295; J0360; J0696; J1630; J1650; J1940; J1956; J2060; J2543; J2930; J3370; J3480; J7030

== ENCOUNTER 2016-10-29 11:42 | Emergency (ER) | payer OTHER ==
[~2016-10-29] VITALS: Wt 65.0 kg
[~2016-10-29 11:42] MED LIST changes: -AZIT250T94 PO; -ETOMIDATE 20 MG INJ ONE; +IPRA3AMP INHALATION; -LEVO250T9 PO; -ROCURONIUM 50 MG INJ ONE; -TUBE5VIA3 ID
[2016-10-29] MEDS ORDERED: SOD CHLORIDE 0.9% 1,000 ML IV STA (12:04)
[2016-10-29 12:23] VITALS: TEMP 99
[2016-10-29 12:44] LABS: BASOPHIL # 0.1 10^3/ul (0.0-0.1); BASOPHILS % 0.6 % (0.0-2.0); EOSINOPHILS # 0.4 10^3/ul (0.0-0.5); EOSINOPHILS % 3.5 % (0.0-7.0); HEMATOCRIT 27.1 % (37.0-47.0); HEMOGLOBIN 8.7 g/dl (12.0-16.0); LYMPHOCYTES # 2.1 10^3/ul (0.8-2.9); LYMPHOCYTES % 17.1 % (15.0-51.0); MEAN CORPUSCULAR HEMOGLOBIN 30.5 pg (29.0-33.0); MEAN CORPUSCULAR HGB CONC 32.1 g/dl (32.0-37.0); MEAN CORPUSCULAR VOLUME 95.1 fl (82.0-101.0); MEAN PLATELET VOLUME 9.9 fl (7.4-10.4); MONOCYTES % 8.6 % (0.0-11.0); NEUTROPHILS % 69.6 % (39.0-77.0); PLATELET COUNT 480 10^3/UL (140-415); RED BLOOD COUNT 2.85 10^6/ul (4.20-5.40); RED CELL DISTRIBUTION WIDTH 14.6 % (11.5-14.5)
[2016-10-29 12:58] LABS: INR 0.99; PROTIME 13.1 Sec (12.2-14.2)
[2016-10-29 12:59] LABS: PARTIAL THROMBOPLASTIN TIME 30.8 Sec (25.0-35.0)
[2016-10-29 13:02] LABS: ALANINE AMINOTRANSFERASE 142 IU/L (13-69); ALBUMIN 3.6 g/dl (3.3-4.9); ALBUMIN/GLOBULIN RATIO 1.16; ALKALINE PHOSPHATASE 182 IU/L (42-121); ANION GAP 13 (8-16); ASPARTATE AMINO TRANSFERASE 92 IU/L (15-46); BILIRUBIN,INDIRECT 0.5 mg/dl (0-1.1); BILIRUBIN,TOTAL 0.5 mg/dl (0.2-1.3); BLOOD UREA NITROGEN 11 mg/dl (7-20); CALCIUM 9.2 mg/dl (8.4-10.2); CARBON DIOXIDE 27 mmol/L (21-31); CHLORIDE 100 mmol/L (97-110); CREATININE 0.62 mg/dl (0.44-1.00); GLUCOSE 97 mg/dl (70-220); POTASSIUM 3.2 mmol/L (3.5-5.1); SODIUM 137 mmol/L (135-144); TOTAL PROTEIN 6.7 g/dl (6.1-8.1)
[2016-10-29 13:13] LABS: TROPONIN-I < 0.012 ng/ml (0.00-0.12)
[2016-10-29] MEDS ORDERED: LEVOFLOXACIN 750MG/D5W (PMX) 150 ML IVPB ONE (13:30)
--- NOTE | 2016-10-29 13:33 | RADRPT ---
PROCEDURE: XR Chest. CLINICAL INDICATION: Shortness of breath. Possible sepsis TECHNIQUE: A single portable view of the chest was obtained. COMPARISON: 10/25/2016 FINDINGS: The aorta is tortuous and atherosclerotic. The cardiomediastinal silhouette is otherwise stable. Po ssible small bilateral pleural effusions may be present with bibasilar air space disease which is im proved. The diffuse pulmonary vascular congestion has decreased. The soft tissues and osseous struc tures demonstrate benign age related senescent changes. IMPRESSION: 1. Interval decrease in the diffuse pulmonary vascular congestion. 2. Possible small bilateral pleural effusions with bibasilar air space disease which has decreased. RPTAT: HPNM Physician Brodie Date Time Electronically viewed and signed by Reza Mcgrath Physician on 10/29/2016 13:33 /
[2016-10-29 13:35] LABS: ADD UMIC YES; UR AMORPHOUS CRYSTAL FEW /HPF (NONE SEEN); UR ASCORBIC ACID NEGATIVE (NEGATIVE); UR BILIRUBIN (Dip) NEGATIVE (NEGATIVE); UR BLOOD (Dip) 2+ mg/dL (NEGATIVE); UR CLARITY SLIGHTLY CLOUDY (CLEAR); UR COLOR YELLOW (YELLOW); UR GLUCOSE (Dip) NEGATIVE (NEGATIVE); UR KETONES (Dip) NEGATIVE (NEGATIVE); UR LEUKOCYTE ESTERASE (Dip) NEGATIVE Leu/ul (NEGATIVE); UR NITRITE (Dip) NEGATIVE (NEGATIVE); UR RBC 31 /HPF (0-5); UR SPECIFIC GRAVITY (Dip) 1.009 (1.003-1.030); UR TOTAL PROTEIN (Dip) NEGATIVE (NEGATIVE); UR UROBILINOGEN (Dip) NEGATIVE (NEGATIVE)
[2016-10-29] MEDS ORDERED: IPRATROPIUM (NEB) 0.5 MG/2.5 ML AMP NEB STA (14:08)
[2016-10-29] MEDS ORDERED: ALBUTEROL 0.083% (NEB) 2.5 MG/3 ML AMP NEB STA (14:08)
[2016-10-29] MEDS: POTASSIUM CHLORIDE (SR) 10 MEQ TAB PO ONE ×2 (14:21→15:37)
[2016-10-29] MEDS ORDERED: POTASSIUM CHLORIDE 20 MEQ in SOD CHLORIDE 0.9% 100 ML IVPB ONE (14:30)
--- NOTE | 2016-10-29 14:38 | ERD ---
ER Documentation Chief Complaint Date/Time DATE: 10/29/16 TIME: 14:35 Chief Complaint FOUND MORE LETHARGIC THIS AM BY HOME HEALTH NURSE. NO TRAUMA. HPI This is a 86-year-old female with a recent history of aspiration pneumonia and respiratory failure requiring intubation who is now at home receiving home health care who presents to the emergency room for evaluation of shortness of breath. Per this patient's daughters were the caregiver the patient has been more tired than normal and had some coughing. They were concerned because a thought that she could have aspirated and they brought the patient to the emergency room for evaluation. The patient is unable to give a detailed history secondary to her cognitive deficits and severe dementia ROS All systems reviewed and are negative except as per history of present illness. Medications Home Meds Reported Medications Ipratropium-Albuterol (Ipratropium-Albuterol) 0.5-3 Mg/3 Ml Ampul.neb, 3 ML INHALATION Q6 Y for SHORTNESS OF BREATH, #30 VIAL 10/17/16 Ascorbic Acid* (Vitamin C*) 500 Mg Capsule.sa, 500 MG PO DAILY, CAP 10/13/16 Tramadol HCl (Tramadol HCl) 50 Mg Tablet, 50 MG PO Q6H Y for PAIN 4-10/10, #120 TAB 10/13/16 Acetaminophen* (Tylenol*) 325 Mg Tablet, 650 MG PO Q6H Y for MILD PAIN LEVEL 1-3 , TAB FOR FEVER>101 10/13/16 Sennosides* (Senna Lax*) 8.6 Mg Tablet, 2 TAB PO QHS Y for CONSTIPATION, TAB 10/13/16 Risperidone* (Risperdal*) 0.5 Mg Tablet, 0.5 MG PO Q12H, TAB 10/13/16 Protein Supplement (Promod) 946 Ml Liquid, 30 ML PO TID 10/13/16 Nystatin (Nystatin) 100,000 Unit/1 Ml Oral.susp, 5 ML PO TID, #60 ML START DATE 10/13/16,END DATE 10/20/16 10/13/16 Multivitamin with Minerals (Multivitamins with Minerals) 1 Each Tablet, 1 EACH PO DAILY, TAB 10/13/16 Polyethylene Glycol* (Miralax*) 17 Gm Powd.pack, 17 GM PO BID, #60 PACKET 10/13/16 Levothyroxine Sodium* (Levothyroxine Sodium*) 75 Mcg Tablet, 75 MCG PO BEFORE BREAKFAST, #30 TAB 10/13/16 Lactulose* (Lactulose*) 20 Gm/30 Ml Solution, 20 GM PO Q48H, ML 10/13/16 Sod Phosphate/Sod Biphosphate* (Fleet* Enema Pediatric) 66.6 Ml Soln, 66.6 ML NM Q72H Y for CONSTIPATION, ENEMA 10/13/16 Ferrous Sulfate* (Ferrous Sulfate*) 325 Mg Tabec, 325 MG PO DAILY, TAB END DATE 11/10/16 10/13/16 Bisacodyl* (Bisacodyl*) 10 Mg Supp, 10 MG NM Q48H, SUPP 10/13/16 Clotrimazole* (Clotrimazole* AF) 1% - 30 Gm Cream.gm., 1 APPLIC TOP Q24H, TUB 10/13/16 Bethanechol Chloride* (Bethanechol Chloride*) 10 Mg Tablet, 10 MG PO Q2H, TAB 10/13/16 Betamethasone Dipropionate* (Betamethasone Dipropionate*) 0.05% - 15 Gm Oint, 1 APPLIC TOP Q24H, TUB APPLY TO: 10/13/16 Aspirin (Aspirin) 325 Mg Tablet.dr, 325 MG PO BID 10/13/16 Tolnaftate (ANTIFUNGAL) 150.2 Gm [place], 150.2 GM TP DAILY, SPRAY 10/13/16 Discontinued Reported Medications Tuberculin,Purif.prot.deriv. (Tubersol) 5 Tub Unit/0.1 Ml Vial, 5 TUB ID QHS, VIAL INJECT 0.1ML AT QHS FOR TB SCREENING FOR 1 DAY 2ND STEP PPD.END DATE 10/18/16 10/13/16 Discontinued Scripts Azithromycin* (Zithromax*) 250 Mg Tablet, 250 MG PO .AlciraPARAJANI DIRECTED, #6 TAB TAKE 500 MG (2 TABS) THE FIRST DAY THEN 250 MG (1 TAB) DAYS 2-5 Prov:CATHIE CAICEDO MD 10/13/16 Allergies Allergies: Coded Allergies: Latex, Natural Rubber (Unverified Allergy, Unknown, 10/17/16) Sulfa (Sulfonamide Antibiotics) (Verified Allergy, Unknown, 10/17/16) morphine (Unverified Allergy, Unknown, 10/17/16) thimerosal (Unverified Allergy, Unknown, 10/17/16) PMhx/Soc History of Surgery: Yes (right total knee) Anesthesia Reaction: Yes (combative/confused - 2012, 2013, 2016) Hx Neurological Disorder: No Hx Respiratory Disorders: Yes (pneumonia) Hx Cardiac Disorders: No Hx Psychiatric Problems: Yes (dementia) Hx Miscellaneous Medical Probl: Yes (thyroid) Hx Alcohol Use: No Hx Substance Use: No Hx Tobacco Use: No Smoking Status: Never smoker Physical Exam Vitals Vital Signs Date Time Temp Pulse Resp B/P Pulse Ox O2 Delivery O2 Flow Rate FiO2 10/29/16 13:06 98.9 71 21 166/80 98 10/29/16 12:23 99.0 76 26 166/80 97 Nasal Cannula 4.0 10/29/16 12:23 Nasal Cannula 4 Physical Exam Const: Frail-appearing elderly female, no acute distress, no respiratory] Head: Atraumatic Eyes: Normal Conjunctiva ENT: Normal External Ears, Nose and Mouth. Neck: Full range of motion..~ No meningismus. Resp: Coarse breath sounds in the bilateral lower lobes, no rhonchi no Cardio: Regular rate and rhythm, no murmurs Abd: Soft, non tender, non distended. Normal bowel sounds Skin: No petechiae or rashes Back: No midline or flank tenderness Ext: No cyanosis, or edema Neur: Awake and alert Psych: Normal Mood and Affect Result Diagram: 10/29/16 1220 10/29/16 1220 Results 24 hrs Laboratory Tests Test 10/29/16 12:20 10/29/16 13:15 White Blood Count 12.010^3/ul Red Blood Count 2.8510^6/ul Hemoglobin 8.7g/dl Hematocrit 27.1% Mean Corpuscular Volume 95.1fl Mean Corpuscular Hemoglobin 30.5pg Mean Corpuscular Hemoglobin Concent 32.1g/dl Red Cell Distribution Width 14.6% Platelet Count 63694^3/UL Mean Platelet Volume 9.9fl Neutrophils % 69.6% Lymphocytes % 17.1% Monocytes % 8.6% Eosinophils % 3.5% Basophils % 0.6% Nucleated Red Blood Cells % 0.0/100WBC Neutrophils # (Manual) 810^3/ul Lymphocytes # 2.110^3/ul Monocytes # 1.010^3/ul Eosinophils # 0.410^3/ul Basophils # 0.110^3/ul Nucleated Red Blood Cells # 0.010^3/ul Prothrombin Time 13.1Sec Prothrombin Time Ratio 1.0 INR International Normalized Ratio 0.99 Activated Partial Thromboplast Time 30.8Sec Sodium Level 137mmol/L Potassium Level 3.2mmol/L Chloride Level 100mmol/L Carbon Dioxide Level 27mmol/L Anion Gap 13 Blood Urea Nitrogen 11mg/dl Creatinine 0.62mg/dl Glucose Level 97mg/dl Lactic Acid Level 0.7mmol/L Calcium Level 9.2mg/dl Total Bilirubin 0.5mg/dl Direct Bilirubin 0.00mg/dl Indirect Bilirubin 0.5mg/dl Aspartate Amino Transf (AST/SGOT) 92IU/L Alanine Aminotransferase (ALT/SGPT) 142IU/L Alkaline Phosphatase 182IU/L Troponin I < 0.012ng/ml Total Protein 6.7g/dl Albumin 3.6g/dl Globulin 3.10g/dl Albumin/Globulin Ratio 1.16 Urine Color YELLOW Urine Clarity SLIGHTLY CLOUDY Urine pH 8.0 Urine Specific [place] 1.009 Urine Ketones NEGATIVEmg/dL Urine Nitrite NEGATIVEmg/dL Urine Bilirubin NEGATIVEmg/dL Urine Urobilinogen NEGATIVEmg/dL Urine Leukocyte Esterase NEGATIVELeu/ul Urine Microscopic RBC 31/HPF Urine Microscopic WBC 2/HPF Urine Amorphous Crystals FEW/HPF Urine Hemoglobin 2+mg/dL Urine Glucose NEGATIVEmg/dL Urine Total Protein NEGATIVEmg/dl Current Medications Medications (Trade) Dose Ordered Sig/Ilene Route PRN Reason Start Time Stop Time Status Last Admin Dose Admin Sodium Chloride 1,000 ml @ 1,000 mls/hr Q1H STAT IV 10/29/16 12:04 10/29/16 13:03 DC 10/29/16 13:18 Levofloxacin/ Dextrose (Levaquin 750 Mg/ D5W 150 ml (Pmx)) 150 ml @ 100 mls/hr ONCE ONCE IVPB 10/29/16 13:30 10/29/16 14:59 10/29/16 14:01 Potassium Chloride 30 meq 30 meq ONCE ONCE PO 10/29/16 14:00 10/29/16 14:01 DC Potassium Chloride/Sodium Chloride (KCl/NS) 110 ml @ 55 mls/hr ONCE ONCE IVPB 10/29/16 14:30 10/29/16 16:29 Albuterol (Proventil 0.083% (Neb)) 5 mg ONCE STAT NEB 10/29/16 14:08 10/29/16 14:10 DC 10/29/16 14:29 Ipratropium [place] (Atrovent 0.02% (Neb)) 0.5 mg ONCE STAT NEB 10/29/16 14:08 10/29/16 14:10 DC 10/29/16 14:29 Procedures/MDM Chest X-ray 1V Interpreted by me: Soft Tissue: 1. Interval decrease in the diffuse pulmonary vascular congestion. 2. Possible small bilateral pleural effusions with bibasilar air space disease which has decreased. EKG: Rate/Rhythm: [Normal Sinus Rhythm] QRS, ST, T-waves: [No changes consistent w/ acute ischemia] Impression: [No evidence of ischemia or arrhythmia] This 86-year-old female presents to the ER for evaluation of shortness of breath. Her daughters were concerned because the patient does have a recent history of aspiration pneumonia. The patient has yet to be evaluated by speech and swallow therapy for possible placement of PEG tube however patient's daughters were refusing PEG tube at time of admission. There was concerned because she was short of breath and brought the patient to the ER. Since being in the ER visit that she has improved and she has intermittent coughing. Chest x-ray was obtained which shows a decrease in the pulmonary vascular congestion and a decrease in the bilateral pleural effusions. The patient was given Levaquin in the ER. She has not required any emergent intervention. She has a white blood cell count of 12 however oxygen level is 97% on 2 L. She will be discharged at this time with a prescription for Levaquin, and albuterol for her home nebulizer machine. I advised the patient's daughters that they can return to the ER at any moment if they are uncomfortable taking care of this patient. They verbalized understanding. I did attribute some of this patient's symptoms to fatigue as the patient got home at 10 PM last night and the patient was brought in to the emergency room this morning. Patient was also given IV potassium. Departure Diagnosis: Primary Impression: Bilateral pleural effusion Additional Impression: Normocytic anemia Condition: Stable ORI BUITRAGO DO Oct 29, 2016 14:38
[2016-10-29] MEDS ORDERED: LEVO750T25 PO (14:39)
[2016-10-29] MEDS ORDERED: ALBU2.5V3 NEB (14:39)
[2016-10-29 15:36] VITALS: BP 128/89; PULSE 92; RESP 24
== END 2016-10-29 15:56 | disposition home or self-care (01) ==
LOC: E/R 11:42
DX: J90 Pleural effusion, not elsewhere classified (principal); D50.0 Iron deficiency anemia secondary to blood loss (chronic); R40.2142 Coma scale, eyes open, spontaneous, at arrival to emergency department; R40.2252 Coma scale, best verbal response, oriented, at arrival to emergency department; R40.2362 Coma scale, best motor response, obeys commands, at arrival to emergency department; Z91.040 Latex allergy status; Z79.82 Long term (current) use of aspirin
CPT/HCPCS: 71010; 80053; 81001; 83605; 84484; 85025; 85610; 85730; 87040; 87086; 94664; 96374; 96375; 99285; J3480; J7030; 93005